=== PATIENT | female | born 1960 | race Caucasian/White ===

== ENCOUNTER 2016-06-19 05:40 | Emergency (ER) | payer MEDICARE, MEDICAID ==
[2016-06-19 05:40] VITALS: BP 136/90
[~2016-06-19 05:40] MED LIST: AMLO5TAB2 PO; ASPI81TA44 PO; CLON0.1T12 PO; GUAI-107 PO; LEVALBUTER0.63 MG/3 NEB; LISI-334 PO; LORA0.5T96 PO; MINE454C6 TP
--- NOTE | 2016-06-19 06:05 | PHYS DOC ---
Past History Past Medical History: Asthma, COPD, Hypertension, Lung Disease, Other Additional Past Medical Histor: pulmonary hypertension, cor pulmonale, noncompliance Past Surgical History: Cancer Surgery Smoking: Cigarettes Alcohol Use: None Drug Use: None Adult General Chief Complaint Chief Complaint: SHORTNESS OF BREATH HPI HPI 0552: Patient is a 56-year-old female with history significant for COPD and hypertension with ICU admissions in the past secondary to respiratory failure presents here today secondary to requiring oxygen. Patient reports that her option company, a previous, has delivered auction tanks to to the homes that she usually lives at however today she was staying with her sister and they did not has sufficient amounts of oxygen therefore her and they did not have a concentrator there. Patient reports shortly before coming in the ER she ran out of oxygen or auction tank and started feeling short of breath. Patient called EMS that she can get oxygen while her sister is trying to go to her other home in order to garbage pick up worker her concentrator and another canister of option. Patient currently reports that she is at her baseline respiratory status although when discussing with her from a skilled 0-10 where she is she reports she is about a 7 out of 10. Patient currently reports that the reason her breathing is somewhat difficult is because she feels that she was off her oxygen for a prolonged time and she just catching up and she is improving while she is on a nasal cannula. Patient reports that the reason she thinks her lungs sound wheezy is secondary to allergies and not secondary to her COPD exacerbation. Patient reports that she utilizes open next at home and that she is not allowed to use albuterol. Patient is currently refusing medication in the ER because she reports that she is close to her baseline. Patient reports that the only reason that she thinks she is feeling short of breath and now presents for allergies and does not want us to order any Xopenex for her at this time. Patient's physical exam the ER is significant for diminished breath sounds throughout. Patient is tachypneic. Patient has coarse rales in her right lower lobe. Patient is agreeing to allow us to get a chest x-ray on her to evaluate her lungs. Patient was initially reluctant but she had a recent chest x-ray however after discussing with her the breath sounds that she has that are abnormal she is agreed for a chest x-ray. Assessment and plan: This is a 48-year-old female with a history of severe COPD and hypertension who presents here today secondary to shortness of breath which by her report is secondary to running out of oxygen at her sister's house. Patient reports that this is not a COPD flareup for her and that she reports only reason that she thinks she is short of breath is because she ran out of oxygen. Patient is currently requesting that we allow her to stay here for a little bit to utilize her oxygen while her sister goes to her house to try to garbage pick up worker a canister of oxygen or her oxygen concentrator. Patient is currently declining our offer to assist with callingchente, in order to assist her with obtaining a canister of oxygen refilling her oxygen canisters. She has requested that we wait until she hears back from her sister who is currently going to her home. Patient is currently clinically and hemodynamically stable. We will get a x-ray of her chest. And we will reevaluate her once her sister Heinzer. Review of Systems Review of Systems Constitutional: Denies fever or chills [] Eyes: Denies change in visual acuity, redness, or eye pain [] All other review systems are negative except as documented in the history of present illness portion. Allergies Allergies Allergies Coded Allergies Type Severity Reaction Last Updated Verified Sulfa (Sulfonamide Antibiotics) Allergy Intermediate 01/23/15 Yes cefaclor Allergy Intermediate 04/23/15 Yes ciprofloxacin Allergy Intermediate 04/23/15 Yes doxycycline Allergy Intermediate 04/23/15 Yes erythromycin base Allergy Intermediate 04/23/15 Yes iodine Allergy Intermediate 04/23/15 No lisinopril Allergy Intermediate 07/04/15 Yes metronidazole Allergy Intermediate 04/23/15 Yes tetracycline Allergy Intermediate 01/23/15 Yes Physical Exam Physical Exam Constitutional: Well developed, well nourished, no acute distress, non-toxic appearance. [] HENT: Normocephalic, atraumatic, Eyes: PERRLA, EOMI, conjunctiva normal, no discharge. [] Neck: Normal range of motion, no tenderness, supple, no stridor. [] Cardiovascular:Heart rate regular rhythm Lungs & Thorax: Diffuse expiratory wheezing with rales to her right base. Abdomen: Bowel sounds normal, soft, no tenderness, no masses, no pulsatile masses. [] Skin: Warm, dry, no erythema, no rash. [] Back: No tenderness, no CVA tenderness. [] Extremities: No tenderness, no cyanosis, no clubbing, ROM intact, no edema. [] Neurologic: Alert and oriented X 3, normal motor function, normal sensory function, no focal deficits noted. [] Psychologic: Affect normal, judgement normal, mood normal. [] EKG EKG [] Radiology/Procedures Radiology/Procedures [] PATIENT: GARTH ROJAS ACCOUNT: [id number] : 1960 LOCATION: ER AGE: 56 SEX: F EXAM STATUS: REG ER ORD. PHYSICIAN: FRANCIA CIFUENTES MD REASON: Severe shortness of air today PROCEDURE: CHEST AP ONLY Exam performed: One view chest. Indication: Severe shortness of air today Date of Service: 06/19/2016 7:55 AM Comparison: Single view chest from 07/02/15. Single AP upright portable view chest findings: Cardiomediastinal silhouette is within limits of normal. No acute infiltrates, effusion or pneumothorax is detected. Emphysematous lungs with flattening of bilateral hemidiaphragms and chronic blunting of both costophrenic angles. The bony structures are normal. Impression: No acute cardiopulmonary process is detected. DICTATED AND SIGNED BY: GARY SOARES MD DATE: 06/19/16 0708 CC: FRANCIA CIFUENTES MD; NON,STAFF; THI TURK DO ~ Course & Med Decision Making Course & Med Decision Making Pertinent Labs and Imaging studies reviewed. (See chart for details) [] Case signed out to Dr. Valenzuela at 6 AM. Patient will be reevaluated and disposition will be per Dr. turk Pt family has returned with O2 supplies. She remains without complaint, VSS. I discussed CXR findings with her as well as need to always ensure she has access to home oxygen and supplies. Her questions answered, she expressed agreement/understanding with treatment plan. Dragon Disclaimer Dragon Disclaimer This chart was dictated in whole or in part using Voice Recognition software in a busy, high-work load, and often noisy Emergency Department environment. It may contain unintended and wholly unrecognized errors or omissions. Departure Departure: Impression: Primary Impression: Chronic respiratory failure Additional Impression: COPD (chronic obstructive pulmonary disease) Disposition: HOME, SELF-CARE Condition: STABLE Referrals: PCP,NO (PCP) Patient Instructions: Chronic Obstructive Pulmonary Disease Exacerbation, Easy- to-Read, Oxygen Use at Home Additional Instructions: Continue current medications/treatments. Be vigilant and always ensure you have oxygen and supplies readily available. Follow up with your doctor as needed. Return to ED with new or changing symptoms. Problem Qualifiers FRANCIA CIFUENTES MD June 19, 2016 06:05 THI TURK DO June 19, 2016 07:18
--- NOTE | 2016-06-19 07:12 | RAD ---
Exam performed: One view chest. Indication: Severe shortness of air today Date of Service: 06/19/2016 7:55 AM Comparison: Single view chest from 07/02/15. Single AP upright portable view chest findings: Cardiomediastinal silhouette is within limits of normal. No acute infiltrates, effusion or pneumothorax is detected. Emphysematous lungs with flattening of bilateral hemidiaphragms and chronic blunting of both costophrenic angles. The bony structures are normal. Impression: No acute cardiopulmonary process is detected.
== END 2016-06-19 08:07 | disposition home or self-care (01) ==
LOC: ER 05:40
DX: J44.1 Chronic obstructive pulmonary disease with (acute) exacerbation (principal); J96.10 Chronic respiratory failure, unspecified whether with hypoxia or hypercapnia; I10 Essential (primary) hypertension; F17.210 Nicotine dependence, cigarettes, uncomplicated; Z88.2 Allergy status to sulfonamides; Z88.1 Allergy status to other antibiotic agents; Z88.8 Allergy status to other drugs, medicaments and biological substances; Z91.041 Radiographic dye allergy status
CPT/HCPCS: 71010; 99283

== ENCOUNTER 2016-06-30 03:40 | Emergency (ER) | payer MEDICARE, MEDICAID ==
[~2016-06-30] VITALS: Ht 166.4 cm; Wt 49.9 kg
[2016-06-30] MEDS ORDERED: IPRATRPIUM/ALBUTEROL 0.5/2.5MG 3 ML NEBU. INH ONE (04:00)
[2016-06-30] MEDS ORDERED: IPRATRPIUM/ALBUTEROL 0.5/2.5MG 3 ML NEBU. ONE (04:02)
[2016-06-30 04:11] LABS: BASO # 0.1 x10^3/uL (0.0-0.2); BASO % 1 % (0-3); EOS # 0.3 x10^3/uL (0.0-0.7); EOS % 4 % (0-3); HEMATOCRIT 41.5 % (36.0-47.0); LYMPH % 23 % (24-48); MEAN CORPUSCULAR HEMOGLOBIN 30 pg (25-35); MEAN CORPUSCULAR HGB CONC 34 g/dL (31-37); MEAN CORPUSCULAR VOLUME 89 fL (79-100); MONO # 0.7 x10^3/uL (0.0-1.1); MONO % 8 % (0-9); NEUT # 5.4 x10^3uL (1.8-7.7); NEUT % 64 % (31-73); PLATELET COUNT 317 x10^3/uL (140-400); RED BLOOD COUNT 4.69 x10^6/uL (3.50-5.40); RED CELL DISTRIBUTION WIDTH 13.1 % (11.5-14.5); WHITE BLOOD COUNT 8.4 x10^3/uL (4.0-11.0)
--- NOTE | 2016-06-30 04:32 | PHYS DOC ---
Past History Past Medical History: Anxiety, Cancer, CHF, COPD, Hypertension, Other Additional Past Medical Histor: pulmonary hypertension, cor pulmonale, noncompliance Past Surgical History: Other Smoking: Cigarettes Alcohol Use: None Drug Use: None Adult General Chief Complaint Chief Complaint: SHORTNESS OF BREATH HPI HPI 56-year-old female with history of pulmonary hypertension presenting to the emergency department today with shortness of breath. She reports that her oxygen got kinked up and she started feeling short of breath. Paramedics were called who were able to straighten out her oxygen tubing. She was feeling much better. Paramedics report that her blood pressure was mildly elevated. They subsequently brought her in for evaluation. Currently she is short of breath but is much improved from previous. She is requiring her baseline oxygen which is 4 L/m by nasal cannula. She denies chest pain. Onset today. Location lungs. Duration intermittent. Alleviated by straightening out her tubing. Review of systems is negative for chest pain abdominal pain nausea vomiting or diaphoresis. All other review of systems is negative unless otherwise noted in history of present illness. Review of Systems Review of Systems SEE ABOVE. Current Medications Current Medications Current Medications Medications (Trade) Dose Ordered Sig/Flory Start Time Stop Time Status Last Admin Dose Admin Albuterol/ Ipratropium (Duoneb) 3 ml STK-MED ONCE 06/30/16 04:02 06/30/16 04:03 DC Allergies Allergies Allergies Coded Allergies Type Severity Reaction Last Updated Verified Sulfa (Sulfonamide Antibiotics) Allergy Intermediate 01/23/15 Yes cefaclor Allergy Intermediate 04/23/15 Yes ciprofloxacin Allergy Intermediate 04/23/15 Yes doxycycline Allergy Intermediate 04/23/15 Yes erythromycin base Allergy Intermediate 04/23/15 Yes iodine Allergy Intermediate 04/23/15 No lisinopril Allergy Intermediate 07/04/15 Yes metronidazole Allergy Intermediate 04/23/15 Yes tetracycline Allergy Intermediate 01/23/15 Yes Physical Exam Physical Exam Constitutional: Well developed, well nourished, no acute distress, non-toxic appearance. On baseline 4 L nasal cannula. HENT: Normocephalic, atraumatic, bilateral external ears normal, oropharynx moist, no oral exudates, nose normal. Eyes: PERRLA, EOMI, conjunctiva normal, no discharge. [] Neck: Normal range of motion, no tenderness, supple, no stridor. Cardiovascular:Heart rate regular rhythm, no murmur [] Lungs & Thorax: Patient has mild wheezing more on the right than the left. No crackles. Abdomen: Bowel sounds normal, soft, no tenderness, no masses, no pulsatile masses. Skin: Warm, dry, no erythema, no rash. Back: No tenderness, no CVA tenderness. [] Extremities: No tenderness, no cyanosis, no clubbing, ROM intact, no edema. Neurologic: Alert and oriented X 3, normal motor function, normal sensory function, no focal deficits noted. Psychologic: Affect normal, judgement normal, mood normal. Current Patient Data Vital Signs Vital Signs Date Time Temp Pulse Resp B/P (MAP) Pulse Ox O2 Delivery O2 Flow Rate FiO2 06/30/16 04:03 98.0 102 26 97 Nasal Cannula 4.0 Lab Results Laboratory Tests Test 06/30/16 03:55 White Blood Count 8.4 x10^3/uL (4.0-11.0) Red Blood Count 4.69 x10^6/uL (3.50-5.40) Hemoglobin 14.0 g/dL (12.0-15.5) Hematocrit 41.5 % (36.0-47.0) Mean Corpuscular Volume 89 fL (79-100) Mean Corpuscular Hemoglobin 30 pg (25-35) Mean Corpuscular Hemoglobin Concent 34 g/dL (31-37) Red Cell Distribution Width 13.1 % (11.5-14.5) Platelet Count 317 x10^3/uL (140-400) Neutrophils (%) (Auto) 64 % (31-73) Lymphocytes (%) (Auto) 23 % (24-48) L Monocytes (%) (Auto) 8 % (0-9) Eosinophils (%) (Auto) 4 % (0-3) H Basophils (%) (Auto) 1 % (0-3) Neutrophils # (Auto) 5.4 x10^3uL (1.8-7.7) Lymphocytes # (Auto) 2.0 x10^3/uL (1.0-4.8) Monocytes # (Auto) 0.7 x10^3/uL (0.0-1.1) Eosinophils # (Auto) 0.3 x10^3/uL (0.0-0.7) Basophils # (Auto) 0.1 x10^3/uL (0.0-0.2) EKG EKG EKG shows no ST segment changes. Sinus rhythm. Regular rate. [] Radiology/Procedures Radiology/Procedures [] Chest x-ray compared to previous on the 12th of this month.Chest x-ray reviewed by myself shows no obvious infiltrate or pneumothorax present. No obvious acute cardiopulmonary process present. Course & Med Decision Making Course & Med Decision Making Pertinent Labs and Imaging studies reviewed. (See chart for details) [] 58-year-old female presenting to the emergency department with shortness of breath which improved after unkinking her oxygen tubing at home. Patient was mildly hypertensive which improved without intervention. Afebrile. Saturating 97 % on her baseline oxygen requirement. Pertinent physical exam findings showed mild wheezing on the left. The patient was offered a DuoNeb therapy however she declined this. Blood work obtained. CBC unremarkable. X-ray and EKG unremarkable. On reexamination the patient was asymptomatic feeling much better. The patient was then discharged home in stable condition to follow up with their primary care physician over the next 2-3 days. They were to return if their symptoms worsened or if they were concerned for any reason. Face-to- face discharge instructions and return precautions were given. Patient's questions were answered to their satisfaction. Patient is comfortable plan. Dragon Disclaimer Dragon Disclaimer This chart was dictated in whole or in part using Voice Recognition software in a busy, high-work load, and often noisy Emergency Department environment. It may contain unintended and wholly unrecognized errors or omissions. Departure Departure: Impression: Primary Impression: Shortness of breath Disposition: 01 HOME, SELF-CARE Condition: STABLE Referrals: NON,STAFF (PCP) NIC GARCIA MD Patient Instructions: Shortness of Breath, [id number] Additional Instructions: Thank you for allowing us to participate in your care today. Followup with your primary care physician in 3 days if your symptoms do not improve. If you do not have a primary care provider you can ask for a list of our primary care providers. Return to the emergency department you have any new or concerning findings. This should be evaluated by the primary care physician and any necessary consulting services for continued management within a few days after discharge. Return to emergency room if you have any new or concerning symptoms including but not limited to fever, chills, nausea, vomiting, intractable pain, any new rashes, chest pain, shortness of air, uncontrolled bleeding, difficulty breathing, and/or vision loss. Scripts Levalbuterol Hcl (XOPENEX) 0.63 Mg/3 Ml Vial.neb 1 VIAL NEB PRN TID Y for SHORTNESS OF BREATH, #72 ML 2 Refills Prov: SPIKE GRANT MD 06/30/16 SPIKE GRANT MD June 30, 2016 04:32
[2016-06-30 04:35] LABS: ALBUMIN 3.6 g/dL (3.4-5.0); CALCIUM 9.4 mg/dL (8.5-10.1); CREATININE 0.4 mg/dL (0.6-1.0); DIRECT BILIRUBIN 0.1 mg/dL (0.0-0.2); GFR 163.9; POTASSIUM 4.1 mmol/L (3.5-5.1); TOTAL BILIRUBIN 0.3 mg/dL (0.2-1.0); TOTAL PROTEIN 7.9 g/dL (6.4-8.2)
[2016-06-30 04:46] VITALS: BP 142/95
[2016-06-30] MEDS ORDERED: XOPENEX0.63 MG/3 NEB (04:51)
--- NOTE | 2016-06-30 07:14 | RAD ---
Portable chest, 06/30/2016: History: Shortness of breath, chest pain Comparison is made to a study from 06/19/2016. The heart size is normal. There is calcific plaquing of the aorta. Emphysematous changes are present in the lungs with hyperexpansion. Unchanged prominent basilar pulmonary markings are compatible with scarring. No new pulmonary abnormality is seen. Unchanged blunting of the right lateral costophrenic angles compatible with scarring. No pleural fluid is delineated. IMPRESSION: 1. Emphysema with moderate parenchymal scarring. 2. No acute abnormality is detected.
--- NOTE | 2016-06-30 07:38 | EKG ---
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
== END 2016-06-30 05:00 | disposition home or self-care (01) ==
LOC: ER 03:40
DX: R06.02 Shortness of breath (principal); R06.2 Wheezing; I11.0 Hypertensive heart disease with heart failure; I50.9 Heart failure, unspecified; F41.9 Anxiety disorder, unspecified; J44.9 Chronic obstructive pulmonary disease, unspecified; F17.210 Nicotine dependence, cigarettes, uncomplicated; I27.2 Other secondary pulmonary hypertension; Z88.1 Allergy status to other antibiotic agents; Z88.2 Allergy status to sulfonamides; Z88.8 Allergy status to other drugs, medicaments and biological substances
CPT/HCPCS: 36415; 71010; 80048; 80076; 83690; 83880; 84484; 85027; 93005; 94640; 99285; J7620

== ENCOUNTER 2016-11-11 17:47 | Emergency (ER) | payer MEDICARE, MEDICAID ==
[~2016-11-11] VITALS: Ht 157.5 cm; Wt 53.5 kg
[~2016-11-11 17:47] MED LIST changes: -GUAI-107 PO; +GUAI-108 PO; +XOPENEX0.63 MG/3 NEB
--- NOTE | 2016-11-11 18:15 | PHYS DOC ---
Past History Past Medical History: Anxiety, Cancer, CHF, COPD, Hypertension, Other Additional Past Medical Histor: pulmonary hypertension, cor pulmonale, noncompliance Past Surgical History: Other Smoking: Cigarettes Alcohol Use: None Drug Use: None Adult General Chief Complaint Chief Complaint: FACE PROBLEM HPI HPI Patient is a 56 year old female who presents with facial swelling and allergy type symptoms. She states her symptoms started about a week ago and she's noticed her cheeks getting more swollen. She states it could be her partial plate in her mouth it's causing some of the discomfort or could be sinus infection. She states she's been getting green discharge out of her nose and she 's been coughing up the same. She states she's been using that same amount of oxygen. She denies any fevers chills worsening shortness of breath or chest discomfort. Review of Systems Review of Systems Constitutional: Denies fever or chills [] Eyes: Denies change in visual acuity, redness, or eye pain [] HENT: Denies nasal congestion or sore throat [] Respiratory: Denies cough or shortness of breath [] Cardiovascular: No additional information not addressed in HPI [] GI: Denies abdominal pain, nausea, vomiting, bloody stools or diarrhea [] : Denies dysuria or hematuria [] Musculoskeletal: Denies back pain or joint pain [] Integument: Denies rash or skin lesions [] Neurologic: Denies headache, focal weakness or sensory changes [] Endocrine: Denies polyuria or polydipsia [] Allergies Allergies Allergies Coded Allergies Type Severity Reaction Last Updated Verified Sulfa (Sulfonamide Antibiotics) Allergy Intermediate 01/23/15 Yes cefaclor Allergy Intermediate 04/23/15 Yes ciprofloxacin Allergy Intermediate 04/23/15 Yes doxycycline Allergy Intermediate 04/23/15 Yes erythromycin base Allergy Intermediate 04/23/15 Yes iodine Allergy Intermediate 04/23/15 No lisinopril Allergy Intermediate 07/04/15 Yes metronidazole Allergy Intermediate 04/23/15 Yes tetracycline Allergy Intermediate 01/23/15 Yes Physical Exam Physical Exam Constitutional: Well developed, well nourished, no acute distress, non-toxic appearance. [] HENT: Normocephalic, atraumatic, bilateral external ears normal, oropharynx moist, no oral exudates, nose normal. Partial plate in the upper maxillary area , tender palpation over bilateral maxillary sinuses with swelling over the left maxillary sinus, no Angel angina, posterior first clear, no trismus noted Eyes: PERRLA, EOMI, conjunctiva normal, no discharge. [] Neck: Normal range of motion, no tenderness, supple, no stridor. [] Cardiovascular:Heart rate regular rhythm, no murmur [] Lungs & Thorax: Bilateral breath sounds clear to auscultation [] Abdomen: Bowel sounds normal, soft, no tenderness, no masses, no pulsatile masses. [] Skin: Warm, dry, no erythema, no rash. [] Back: No tenderness, no CVA tenderness. [] Extremities: No tenderness, no cyanosis, no clubbing, ROM intact, no edema. [] Neurologic: Alert and oriented X 3, normal motor function, normal sensory function, no focal deficits noted. [] Psychologic: Affect normal, judgement normal, mood normal. [] EKG EKG [] Radiology/Procedures Radiology/Procedures [] Impressions: Facial swelling Course & Med Decision Making Course & Med Decision Making Pertinent Labs and Imaging studies reviewed. (See chart for details) I believe her symptoms are secondary to her gums or her sinus infection. She will need to be on antibiotics for the next 7 days. She preferred Pen-Vee K and I recommended Augmentin. I did speak with pharmacy who states Augmentin is a better agent for this. Patient is being discharged after her first dose was given in the ER. Return precautions given. Dragon Disclaimer Dragon Disclaimer This chart was dictated in whole or in part using Voice Recognition software in a busy, high-work load, and often noisy Emergency Department environment. It may contain unintended and wholly unrecognized errors or omissions. Departure Departure: Impression: Primary Impression: Dental abscess Disposition: 01 HOME, SELF-CARE Condition: STABLE Referrals: [facility] (PCP) Patient Instructions: Dental Abscess Additional Instructions: Your symptoms are likely due to an infection of your gums or your sinuses. You' ll need take antibiotic for the next 7 days. If your symptoms get worse, you have troubles eating or swallowing and return back to emergency department immediately. You should follow up with your primary care physician within the next week. Scripts Amoxicillin/Potassium Clav (AUGMENTIN 875-125 TABLET) 1 Each Tablet 1 TAB PO BID, #20 TAB Prov: DALIA MENENDEZ MD 11/11/16 DALIA MENENDEZ MD Nov 11, 2016 18:15
[2016-11-11 19:14] LABS: BASO # 0.1 x10^3/uL (0.0-0.2); BASO % 1 % (0-3); EOS # 0.3 x10^3/uL (0.0-0.7); EOS % 2 % (0-3); HEMATOCRIT 39.8 % (36.0-47.0); HEMOGLOBIN 13.8 g/dL (12.0-15.5); LYMPH # 1.9 x10^3/uL (1.0-4.8); LYMPH % 13 % (24-48); MEAN CORPUSCULAR HEMOGLOBIN 31 pg (25-35); MEAN CORPUSCULAR HGB CONC 35 g/dL (31-37); MEAN CORPUSCULAR VOLUME 89 fL (79-100); MONO # 0.8 x10^3/uL (0.0-1.1); MONO % 5 % (0-9); NEUT # 10.9 x10^3uL (1.8-7.7); NEUT % 79 % (31-73); PLATELET COUNT 278 x10^3/uL (140-400); RED BLOOD COUNT 4.49 x10^6/uL (3.50-5.40); WHITE BLOOD COUNT 13.9 x10^3/uL (4.0-11.0)
--- NOTE | 2016-11-11 19:30 | EKG ---
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
[2016-11-11 19:37] LABS: ALBUMIN 3.8 g/dL (3.4-5.0); CALCIUM 8.9 mg/dL (8.5-10.1); CREATININE 0.4 mg/dL (0.6-1.0); DIRECT BILIRUBIN 0.1 mg/dL (0.0-0.2); GFR 163.9; MAGNESIUM 1.9 mg/dL (1.8-2.4); POTASSIUM 4.4 mmol/L (3.5-5.1); TOTAL BILIRUBIN 0.2 mg/dL (0.2-1.0); TOTAL PROTEIN 7.6 g/dL (6.4-8.2)
[2016-11-11 19:44] LABS: CLARITY,URINE CLEAR; COLOR,URINE YELLOW; GLUCOSE,URINE NEG (NEG)
[2016-11-11 19:45] LABS: BACTERIA,URINE 0 /HPF (0-FEW); BILIRUBIN,URINE NEG (NEG); NITRITE,URINE NEG (NEG); RBC,URINE OCC /HPF (0-2); SQUAMOUS EPITHELIAL CELL,UR MANY /LPF; UROBILINOGEN,URINE 0.2 mg/dL (0.2 mg/dL)
[2016-11-11] MEDS ORDERED: AMOX1TAB61 PO (20:25)
[2016-11-11 20:35] VITALS: BP 140/90
[2016-11-11] MEDS ORDERED: AMOXICILLIN/K CLAV 875/125MG TABLET. PO ONE (20:45)
--- NOTE | 2016-11-12 07:40 | RAD ---
Chest x-ray Indication: Edema, short of breath Technique: Portable AP upright chest x-ray Comparison: Previous study from 06/30/2016 Findings: Heart is normal in size. Lungs are hyperinflated with flattening of diaphragms. No pneumothorax or pleural effusion. Bibasilar reticular opacities noted. No focal consolidation. Visualized bony thorax within normal limits. Impression: Findings of COPD with bibasilar parenchymal scarring. No acute cardiopulmonary process.
== END 2016-11-11 20:43 | disposition home or self-care (01) ==
LOC: ER 17:47
DX: K04.7 Periapical abscess without sinus (principal); I11.0 Hypertensive heart disease with heart failure; I50.9 Heart failure, unspecified; J44.9 Chronic obstructive pulmonary disease, unspecified; F17.210 Nicotine dependence, cigarettes, uncomplicated; Z88.2 Allergy status to sulfonamides; Z88.8 Allergy status to other drugs, medicaments and biological substances; Z88.1 Allergy status to other antibiotic agents; Z91.041 Radiographic dye allergy status
CPT/HCPCS: 36415; 71010; 80048; 80076; 81001; 82553; 83735; 83880; 84443; 85025; 87086; 93005; 99285-25

== ENCOUNTER 2017-02-28 17:27 | Inpatient (IN) | payer MEDICARE, MEDICAID ==
[~2017-02-28] VITALS: Ht 157.5 cm; Wt 50.8 kg
[~2017-02-28 17:27] MED LIST changes: +AMOX1TAB61 PO
[2017-02-28] MEDS ORDERED: NOREPINEPHRINE BITARTRATE 4 MG/4 ML VIAL. IV ONE (17:43)
[2017-02-28] MEDS ORDERED: methylPREDNISolone SOD SUCC PF 125 MG/2 ML VIAL. IV ONE (17:45)
[2017-02-28] MEDS ORDERED: IPRATRPIUM/ALBUTEROL 0.5/2.5MG 3 ML NEBU. NEB ONE ×3 (17:45→19:00)
[2017-02-28] MEDS ORDERED: IV NORMAL SALINE 250ML 0 ML ONE (17:50)
[2017-02-28 18:13] LABS: BASO % 0 % (0-3); EOS % 0 % (0-3); HEMATOCRIT 42.3 % (36.0-47.0); HEMOGLOBIN 14.1 g/dL (12.0-15.5); LYMPH # 0.9 x10^3/uL (1.0-4.8); LYMPH % 13 % (24-48); MEAN CORPUSCULAR HEMOGLOBIN 30 pg (25-35); MEAN CORPUSCULAR HGB CONC 33 g/dL (31-37); MEAN CORPUSCULAR VOLUME 89 fL (79-100); MONO # 0.7 x10^3/uL (0.0-1.1); MONO % 9 % (0-9); NEUT # 5.8 x10^3uL (1.8-7.7); NEUT % 78 % (31-73); PLATELET COUNT 182 x10^3/uL (140-400); RED BLOOD COUNT 4.76 x10^6/uL (3.50-5.40); RED CELL DISTRIBUTION WIDTH 13.4 % (11.5-14.5); WHITE BLOOD COUNT 7.4 x10^3/uL (4.0-11.0)
[2017-02-28 18:34] LABS: ALBUMIN 3.4 g/dL (3.4-5.0); ALBUMIN/GLOBULIN RATIO 0.9 (1.0-1.7); CALCIUM 8.6 mg/dL (8.5-10.1); CREATININE 0.5 mg/dL (0.6-1.0); GFR 126.7; POTASSIUM 3.9 mmol/L (3.5-5.1); TOTAL BILIRUBIN 0.2 mg/dL (0.2-1.0); TOTAL PROTEIN 7.3 g/dL (6.4-8.2)
--- NOTE | 2017-02-28 18:34 | PHYS DOC ---
General Chief Complaint: SHORTNESS OF BREATH Stated Complaint: SOB Time Seen by MD: 17:32 Source: patient, EMS, old records Exam Limitations: clinical condition Problems: (THI TURK DO) Time Seen by MD: 18:44 Problems: (ADRIANA ROSA MD) History of Present Illness Initial Comments Patient is a 56-year-old female brought to the ED by EMS with respiratory distress. Patient has a history of COPD and CHF, she has chronic respiratory failure and is supposed to use 3 L O2 via nasal cannula at all times. Family reports that she uses her O2 when necessary and has been refusing her nebulizer treatments recently. Patient recorded a home O2 sat of 66% and EMS was called, on arrival they found the patient to be satting in the 70s initially with improvement to the low 90s on 15 L nonrebreather. EMS reports that after a few moments the patient began to desat once again and on arrival to this facility was once again in the 80s. On arrival heart rate 103 bpm, 97/55, 93% on 15 L nonrebreather. On ED arrival the patient was able to talk with short sentences, she was able to transfer from the cot to the bed primarily by herself. She was fighting with most interventions until I asked her what her wishes were should she stop breathing whether she would want a tube placed down her throat, patient said " do whatever you have to do." Despite this the patient has intermittently removed her mask initially opting for nasal cannula in her mouth, saturation again dropped to the low 80s and I was able to convince the patient that she would either need CPAP mask trial or intubation. She did agree to CPAP and on 40 % O2 her oxygen saturation did increase to 98% and I instructed RT to titrate her to between 92-96% until we could obtain an ABG. Patient did have lower extremity edema and her lungs sound wet however with initial blood pressure is low no Lasix given initially. Patient did tell me that she's had a productive brown cough with worsening breathing for the past 4-5 days, she's had concomitant lower extremity swelling and her family reports that she smokes 2 cartons of cigarettes monthly. 1825: Current vitals 89, 107/66, 19, 91% on 35% CPAP. She has remained afebrile since arrival and is now much less anxious and more relaxed not working as hard or tripoding any longer. She does chest pain, headache, nausea vomiting, or focal neurologic deficits. Scant history on arrival primarily obtained from the chart from old records. Timing/Duration: unsure Severity: severe Modifying Factors: improves with other Associated Symptoms: shortness of breath (THI TURK DO) Allergies: Coded Allergies: Sulfa (Sulfonamide Antibiotics) (Verified Allergy, Intermediate, 01/23/15) cefaclor (Verified Allergy, Intermediate, 04/23/15) ciprofloxacin (Verified Allergy, Intermediate, 04/23/15) doxycycline (Verified Allergy, Intermediate, 04/23/15) erythromycin base (Verified Allergy, Intermediate, 04/23/15) iodine (Unverified Allergy, Intermediate, 04/23/15) lisinopril (Verified Allergy, Intermediate, 07/04/15) metronidazole (Verified Allergy, Intermediate, 04/23/15) tetracycline (Verified Allergy, Intermediate, 01/23/15) Past Medical History Medical History: other (COPD, pulmonary hypertension, chronic respiratory failure supposed to use 3 L of O2 via nasal cannula at all times, anxiety, cor pulmonale, lung cancer, tobaccoism, noncompliance and refusal of treatment) Surgical History: no surgical history, other (colectomy, partial lobectomy) (THI TURK DO) Social History Smoker: greater than 1 pack/day Alcohol: none Drugs: none (THI TURK DO) Review of Systems Constitutional: denies chills, denies diaphoresis, denies fever, malaise Respiratory: see HPI Cardiovascular: denies chest pain, denies palpitations, denies syncope Gastrointestinal: denies diarrhea, denies vomiting Musculoskeletal: denies back pain, joint swelling (left ankle), denies neck pain Hematologic/Lymphatic: denies blood clots, denies easy bleeding, denies easy bruising (THI TURK DO) Physical Exam General Appearance: severe distress (respiratory, appears older than given age) , thin Ear, Nose, Throat: hearing grossly normal, normal ENT inspection, normal pharynx Neck: non-tender, supple Respiratory: chest non-tender, respiratory distress, other (decreased breath sounds at the bases bilaterally with Rales no real wheezes, fair air movement with accessory muscle use and tripoding) Cardiovascular: normal peripheral pulses, tachycardia Extremities: non-tender, no calf tenderness, other (nail clubbing noted, 2+ pitting lower extremity edema left ankle greater than right) Neurologic/Psychiatric: transmitter chief II-XII nml as tested, no motor/sensory deficits, alert, oriented x 3 Skin: warm/dry, pallor (poor turgor no mottling) (ROSALEETHI Sosa SUÁREZ) Orders, Labs, Meds EKG: Normal sinus rhythm 99 bpm, nonspecific T contour abnormalities with some artifact noted in V6 no ST elevation interpreted by me. Chest AP: Small bilateral effusions present with some cephalization no tessa pulmonary edema cardiac silhouette and mediastinal structures appear within normal limits interpreted by me. 183: Labs, ABG, cultures all obtained and sent to lab and are pending. Patient' s vital signs remained stable on previously stated interventions, patient signed out to Dr. Lindsey at 1800 shift change. Please see his documentation for further results and patient disposition. (THI TURK DO) Orders, Labs, Meds She was turned over to me pending response to treatment to include DuoNeb's fluids and Cipro. Patient actually became more hypertensive which is needed given her hypotension is reported initial presentation. Patient is satting 90-94 % on present nonrebreather mask with a bleed rate in the 40% FiO2. Patient's PCO2 was 80 again patient did not want us to intubate her and she is willing to stay on the BiPAP machine at this time. I will continue to primarily treat her as a primary COPD patient. Although her pro BNP was 461 she had some basic mild cephalization on chest x-ray I believe that her issues accommodation CHF and COPD. We'll give her another 2 DuoNeb treatments, continue with a small fluid bolus to maintain her pressures give her some Lasix as well to help remove those fluids from her lungs. Patiently to be admitted to the ICU for further workup. In the interim I will treat her with antibiotics likely to choose a fourth generation penicillin given her prior lung disease, she does not want to be intubated she'll have to watch very closely with serial ABGs and responsive therapy. [employer] Consultant note: Medicine service paged at 703 PM [employer] Consultant called at of the service Consult called back at his call back at 7:15 PM Discussed the case I presented and they agreed with admission. Time of acceptance 7:15 p.m. "I have assessed this patient clinically and believe that their condition requires an admission to the hospital. After consulting the admitting physician about this case, they have asked that I admit this patient to their service as an inpatient based on the clinical presentation and my impression." Critical Care: The high probability of sudden, clinically significant deterioration in the patient's condition required the highest level of my preparedness to intervene urgently. The services I provided to this patient were to treat and/or prevent clinically significant deterioration. Services included the following: chart data review, reviewing nursing notes and/or old charts, documentation time, medical cost consultant collaboration regarding findings and treatment options, medication orders and management, direct patient care, vital sign assessments and ordering, interpreting and reviewing diagnostic studies/ lab tests. Aggregate critical care time includes only time during which I was engaged in work directly related to the patient's care, as described above, whether at the bedside or elsewhere in the Emergency Department. It did not include time spent performing other reported procedures or the services of nurses or physician assistants. Critical Care Time: 45 Concerned that this patient still is not understand the gravity of her sickness. She is declined the medication Lasix as she has not been exposed to before this may help once of fluids in her lungs. She is willing to get [facility] treatments & medical. I offered her antibiotics as well because she is allergic to drugs, sulfa, cephalosporins fluoroquinolones doxycycline, erythromycin, metronidazole and tetracycline we are limited in our scope of coverage I believe a fourth generation said penicillin would be reasonable. I have spoken at length with Dr. Kady BENITEZ about her condition and her non-CODE STATUS patient is willing to be admitted to the hospital although reluctantly she does not really want to be admitted but she understands the gravity of the situation. She is satting 92-94% on the BiPAP machine her blood pressures improved to 108/69. Her heart rate instructed 100. Because of her ABG PCO2 is 80 I want to ensure that she is oxygen well as her mentation reflects her understanding of the situation. And that this is not her being confused because of hypoxia. We are trying to help family informed her of her choices. Old is to provide as much supportive care as possible to help her mentate with an oxygen saturation above 92. Overall impression and disposition is COPD, CHF, respiratory insufficiency, pleural effusions bilaterally she will be admitted to the hospital the ICU under very close management and care with repeat neuro exam is repeat lactic acid troponin fluid administration antibiotics and respiratory support. Initial lactic acid is 1.1 patient is white blood cell count of 7.4 H&H is 14 and 43 patient's troponin is negative proBNP is 461. Laboratory Tests Test 02/28/17 17:36 02/28/17 18:00 02/28/17 18:17 White Blood Count 7.4 x10^3/uL (4.0-11.0) Red Blood Count 4.76 x10^6/uL (3.50-5.40) Hemoglobin 14.1 g/dL (12.0-15.5) Hematocrit 42.3 % (36.0-47.0) Mean Corpuscular Volume 89 fL (79-100) Mean Corpuscular Hemoglobin 30 pg (25-35) Mean Corpuscular Hemoglobin Concent 33 g/dL (31-37) Red Cell Distribution Width 13.4 % (11.5-14.5) Platelet Count 182 x10^3/uL (140-400) Neutrophils (%) (Auto) 78 % (31-73) H Lymphocytes (%) (Auto) 13 % (24-48) L Monocytes (%) (Auto) 9 % (0-9) Eosinophils (%) (Auto) 0 % (0-3) Basophils (%) (Auto) 0 % (0-3) Neutrophils # (Auto) 5.8 x10^3uL (1.8-7.7) Lymphocytes # (Auto) 0.9 x10^3/uL (1.0-4.8) L Monocytes # (Auto) 0.7 x10^3/uL (0.0-1.1) Eosinophils # (Auto) 0.0 x10^3/uL (0.0-0.7) Basophils # (Auto) 0.0 x10^3/uL (0.0-0.2) Sodium Level 135 mmol/L (136-145) L Potassium Level 3.9 mmol/L (3.5-5.1) Chloride Level 92 mmol/L (98-107) L Carbon Dioxide Level 40 mmol/L (21-32) H Anion Gap 3 (6-14) L Blood Urea Nitrogen 14 mg/dL (7-20) Creatinine 0.5 mg/dL (0.6-1.0) L Estimated GFR (Cockcroft-Gault) 126.7 BUN/Creatinine Ratio 28 (6-20) H Glucose Level 158 mg/dL (70-99) H Lactic Acid Level 1.1 mmol/L (0.4-2.0) Calcium Level 8.6 mg/dL (8.5-10.1) Total Bilirubin 0.2 mg/dL (0.2-1.0) Aspartate Amino Transferase (AST) 20 U/L (15-37) Alanine Aminotransferase (ALT) 20 U/L (14-59) Alkaline Phosphatase 73 U/L (46-116) Creatine Kinase 52 U/L (26-192) Troponin I Quantitative < 0.017 ng/mL (0-0.055) CL-Nsn-Q-Type Natriuretic Peptide 461 pg/mL (0-124) H Total Protein 7.3 g/dL (6.4-8.2) Albumin 3.4 g/dL (3.4-5.0) Albumin/Globulin Ratio 0.9 (1.0-1.7) L Blood pH 7.32 (7.35-7.45) L Blood Gas PCO2 80 mmHg (35-45) *H Blood Gas PO2 61 mmHg (80-100) L Blood Gas HCO3 41 mmol/L (22-26) H Arterial Bld O2 Saturation (Calc) 88 % (92-99) L FiO2 35 % Influenza Type A (Rapid) Negative (NEGATIVE) Influenza Type B (Rapid) Negative (NEGATIVE) (ADRIANA ROSA MD) THI TURK DO Feb 28, 2017 18:34 ADRIANA ROSA MD Feb 28, 2017 19:03
--- NOTE | 2017-02-28 18:39 | EKG ---
[address] [address] Test Date: 2017-02-28 Test Time: 18:07:24 Pat Name: GARTH ROJAS Department: Room: Gender: F Bobbin Sorter: ANDRE : 1960 Requested By: THI TURK Order Number: [id number] Reading MD: Andrew Barrow MD Measurements Intervals [place] Rate: 102 P: 90 MS: 102 QRS: 77 QRSD: 90 T: 64 QT: 350 QTc: 461 Interpretive Statements SINUS TACHYCARDIA Electronically Signed On 03-08-2017 0:15:58 MANAGER LPN by Andrew Barrow MD
[2017-02-28 18:45] LABS: BGAS PH 7.32 (7.35-7.45)
[2017-02-28 18:49] LABS: INFLUENZA A PATIENT NEGATIVE (NEGATIVE); INFLUENZA B PATIENT NEGATIVE (NEGATIVE)
[2017-02-28] MEDS ORDERED: FUROSEMIDE 40 MG/4 ML VIAL IVP ONE (19:00)
[2017-02-28] MEDS ORDERED: ACETAMINOPHEN 325 MG TABLET PO PRN (19:15)
[2017-02-28] MEDS ORDERED: PIPERACILLIN/TAZOBACTAM 4.5 GM in IV NORMAL SALINE 50ML 50 ML IV ONE (19:15)
[2017-02-28] MEDS ORDERED: PIPERACILLIN/TAZOBACTAM 4.5 GM VIAL IV ONE (19:32)
[2017-02-28] MEDS ORDERED: IV NORMAL SALINE 50ML 50 ML ONE (19:32)
[2017-02-28 22:30] VITALS: BP 117/87
[2017-02-28] MEDS: IPRATRPIUM/ALBUTEROL 0.5/2.5MG 3 ML NEBU. NEB SCH (22:37)
[2017-02-28 22:48] LABS: BACTERIA,URINE FEW /HPF (0-FEW); BILIRUBIN,URINE NEG (NEG); CLARITY,URINE HAZY; COLOR,URINE YELLOW; GLUCOSE,URINE NEG (NEG); NITRITE,URINE NEG (NEG); RBC,URINE OCC /HPF (0-2); UROBILINOGEN,URINE 0.2 mg/dL (0.2 mg/dL)
[2017-02-28 22:49] LABS: SQUAMOUS EPITHELIAL CELL,UR MOD /LPF
[2017-02-28 23:30] VITALS: BP 112/70
[2017-03-01] VITALS (19 sets, daily range): BP systolic 102–138; BP diastolic 59–89
[2017-03-01 06:44] LABS: BASO % 0 % (0-3); EOS % 0 % (0-3); HEMATOCRIT 41.7 % (36.0-47.0); HEMOGLOBIN 14.1 g/dL (12.0-15.5); LYMPH # 0.6 x10^3/uL (1.0-4.8); LYMPH % 9 % (24-48); MEAN CORPUSCULAR HEMOGLOBIN 30 pg (25-35); MEAN CORPUSCULAR HGB CONC 34 g/dL (31-37); MEAN CORPUSCULAR VOLUME 89 fL (79-100); MONO # 0.3 x10^3/uL (0.0-1.1); MONO % 5 % (0-9); NEUT # 5.6 x10^3uL (1.8-7.7); NEUT % 86 % (31-73); PLATELET COUNT 182 x10^3/uL (140-400); RED BLOOD COUNT 4.69 x10^6/uL (3.50-5.40); RED CELL DISTRIBUTION WIDTH 13.6 % (11.5-14.5); WHITE BLOOD COUNT 6.5 x10^3/uL (4.0-11.0)
[2017-03-01] MEDS: IPRATRPIUM/ALBUTEROL 0.5/2.5MG 3 ML NEBU. NEB SCH ×4 (06:45→22:20)
[2017-03-01 06:51] LABS: ALBUMIN 3.4 g/dL (3.4-5.0); ALBUMIN/GLOBULIN RATIO 0.8 (1.0-1.7); CALCIUM 8.9 mg/dL (8.5-10.1); CREATININE 0.7 mg/dL (0.6-1.0); GFR 85.9; POTASSIUM 3.7 mmol/L (3.5-5.1); TOTAL BILIRUBIN 0.2 mg/dL (0.2-1.0); TOTAL PROTEIN 7.6 g/dL (6.4-8.2)
--- NOTE | 2017-03-01 08:22 | RAD ---
Portable chest, 02/28/2017: History: Shortness of breath Comparison is made to a study from 11/11/2016. The heart size is normal. The lungs are hyperexpanded compatible with emphysema. There are scattered parenchymal scars. Prominent basilar lung markings persists, right greater than left. These appear unchanged. Chronic blunting of the lateral costophrenic angles is probably due to scarring. IMPRESSION: 1. Emphysema with fibrosis. 2. Unchanged prominence of the basilar pulmonary markings is also probably due to scarring. A component of chronic or recurrent interstitial edema cannot be excluded.
[2017-03-01] MEDS ORDERED: FUROSEMIDE 20 MG/2 ML VIAL IVP ONE (08:30)
[2017-03-01] MEDS: guaiFENesin DM 600/30MG 1 TAB TAB.ER.12H PO SCH ×2 (09:19→19:46)
[2017-03-01 10:00] LABS: BGAS PH 7.45 (7.35-7.45)
[2017-03-01] MEDS: PIPERACILLIN/TAZOBACTAM 4.5 GM in IV NORMAL SALINE 50ML 50 ML IV SCH ×2 (11:23→17:50)
[2017-03-01] MEDS: methylPREDNISolone SOD SUCC PF 40 MG/ML VIAL. IV SCH ×3 (14:00→21:46)
--- NOTE | 2017-03-01 18:00 | CARD ---
MR#: [id number] Date of Study: 03/01/2017 Ordering Physician: HANNAH LENZ, Referring Physician: OSMAR MARS Tech: Minerva Taylor RDCS APPROVED REPORT EXAM: Two-dimensional and M-mode echocardiogram with Doppler and color Doppler. Other Information Quality : Good INDICATION Pulmonary Hypertention 2D DIMENSIONS RVDd2.5 (2.9-3.5cm)Left Atrium(2D)2.7 (1.6-4.0cm) IVSd1.1 (0.7-1.1cm)Aortic Root(2D)2.6 (2.0-3.7cm) LVDd4.1 (3.9-5.9cm)LVOT Diameter2.3 (1.8-2.4cm) PWd0.9 (0.7-1.1cm)LVDs2.9 (2.5-4.0cm) FS (%) 28.8 %SV41.3 ml LVEF(%)55.9 (>50%) Aortic Valve AoV Peak Adalid.112.8cm/Maria Luz Peak GR.5.1mmHg LVOT Peak Adalid.122.4cm/sAVA (VMAX)4.52cm2 Mitral Valve MV E Esblcnol84.8cm/sMV DECEL LGGV695oh MV A Cnejpvfc976.1cm/sE/A Ratio0.9 Tricuspid Valve TR P. Fsfjftbn782vq/sRAP VYPLSOLE1ctCd TR Peak Gr.[id number] LEFT VENTRICLE The left ventricle is normal size. There is normal left ventricular wall thickness. The left ventricu lar systolic function is normal and the ejection fraction is within normal range. The Ejection Fracti on is 55-60%. There is normal LV segmental wall motion. Transmitral Doppler flow pattern is Grade I-a bnormal relaxation pattern. RIGHT VENTRICLE The right ventricle is normal size. The right ventricular systolic function is normal. ATRIA The left atrium size is normal. The right atrium size is normal. The interatrial septum is intact wit h no evidence for an atrial septal defect or patent foramen ovale as noted on 2-D or Doppler imaging. AORTIC VALVE Not well visualized. Doppler and Color Flow revealed no significant aortic regurgitation. There is no significant aortic valvular stenosis. MITRAL VALVE The mitral valve is calcified but opens well. Mitral annular calcification is mild. There is no evide nce of mitral valve prolapse. There is no mitral valve stenosis. Doppler and Color-flow revealed trac e mitral regurgitation. TRICUSPID VALVE The tricuspid valve is normal in structure and function. Doppler and Color Flow revealed trace to mil d tricuspid regurgitation. There is mild-moderate pulmonary hypertension. The PA pressure was estimat ed at 41 mmHg. There is no tricuspid valve stenosis. PULMONIC VALVE Doppler and Color Flow revealed no pulmonic valvular regurgitation. There is no pulmonic valvular juanjose nosis. GREAT VESSELS The aortic root is normal in size. The ascending aorta is not well seen. The IVC is normal in size an d collapses >50% with inspiration. PERICARDIAL EFFUSION There is no evidence of significant pericardial effusion. Critical Notification Critical Value: No <Conclusion> The left ventricular systolic function is normal and the ejection fraction is within normal range. Th e Ejection Fraction is 55-60%. There is normal LV segmental wall motion. Doppler and Color Flow revealed trace to mild tricuspid regurgitation. There is mild-moderate pulmona ry hypertension. The PA pressure was estimated at 41 mmHg. Signed by : Andrew Barrow, Electronically Approved : 03/01/2017 18:00:02
--- NOTE | 2017-03-01 18:58 | HP ---
ADMIT DATE: 02/28/2017 HISTORY OF PRESENT ILLNESS: This is a 56-year-old female with longstanding COPD, who presented to the Emergency Room in respiratory distress. Daughter said she has been ill for several days, noticed that her feet were swelling. She is still smoking a couple of cartons a month. She is requiring oxygen at home, but takes it off when she goes outside to smoke. Then, comes back and is quite winded, but she became very weak 2 days ago, was not eating very well, noted shortness of breath with exertion, saturation was of 68% on the concentrator and then 92-93% on portable. She has been very resistant to care in the past. Family has had a time with her getting her to comply with regimen that would be in her best interest. In fact, even here, she is negotiating and refusing to have a lot of medications. PAST MEDICAL HISTORY: 1. Chronic hypercapnic hypoxemic respiratory failure. 2. Emphysema confirmed on CT. 3. Hypertension. 4. Debilitation. 5. Pulmonary hypertension. 6. Tobacco use disorder. 7. I suspect a borderline personality disorder. MEDICATIONS: The patient refuses to take most of her medication, so a current list is really not available. ALLERGIES: She claims multiple allergies, most of these are not true allergies, including STEROIDS, but she claims these are allergies. The patient did get Solu-Medrol last night without problems. REVIEW OF SYSTEMS: The patient is complaining of shortness of breath, brown sputum, denies fever, poor appetite, those are the main ones. OBJECTIVE: VITAL SIGNS: Blood pressure is 108/60, respirations 28, pulse 88, pulse ox is 91% on 5 liters, and also was 97% on 5 liters. The patient really will not keep the mask on. GENERAL: Her color is julia and purplish. Nails are pale. LUNGS: With diminished breath sounds throughout. CARDIOVASCULAR: Regular rhythm and rate, 2/6 systolic murmur. ABDOMEN: Soft, nontender. EXTREMITIES: With trace to 1+ edema. LABORATORY DATA: Initial ABG yesterday evening, pH of 7.32, pCO2 of 80, pO2 of 61, HCO3 of 41. Today after BiPAP, she was 7.45 with 58 pCO2, 74 of O2 and 40 of HCO3. Influenza A and B were negative. D-dimer was negative. Chemistry profile: She has an adequate albumin of 3.4, carbon dioxide of 40. CBC normal white count. Urine 11-20 white cells, but moderate squamous epithelial cells. Chest x-ray: Emphysema with fibrosis, unchanged basilar pulmonary markings. ASSESSMENT: 1. Acute on chronic hypercapnic hypoxemic respiratory failure. 2. Emphysema with fibrosis. 3. Continued tobacco use disorder. 4. Noncompliance with regimen. 5. Chronic oxygen. PLAN: Repeat echo, and had some discussions about whether she should be a DNR if she refuses to have any medications to make her better. The patient is refusing the steroids at the present time. She allowed the antibiotic and Mucinex and some Tylenol. We will monitor her closely. She is also refusing breathing treatments but did have one. HANNAH LENZ DO DR: HILARY/gigi JOB#: [id number] / [id number]
[2017-03-01] MEDS: LACTOBACILLUS RHAMNOSUS GG 1 CAPSULE. PO SCH (19:46)
[2017-03-02] VITALS (9 sets, daily range): BP systolic 102–144; BP diastolic 62–83
[2017-03-02] MEDS: PIPERACILLIN/TAZOBACTAM 4.5 GM in IV NORMAL SALINE 50ML 50 ML IV SCH ×5 (00:29→23:08)
[2017-03-02] MEDS: IPRATRPIUM/ALBUTEROL 0.5/2.5MG 3 ML NEBU. NEB SCH ×4 (05:33→19:34)
[2017-03-02] MEDS: methylPREDNISolone SOD SUCC PF 40 MG/ML VIAL. IV SCH ×3 (05:34→21:29)
[2017-03-02 06:17] LABS: BASO % 0 % (0-3); EOS % 0 % (0-3); HEMATOCRIT 41.2 % (36.0-47.0); HEMOGLOBIN 13.8 g/dL (12.0-15.5); LYMPH # 0.6 x10^3/uL (1.0-4.8); LYMPH % 8 % (24-48); MEAN CORPUSCULAR HEMOGLOBIN 30 pg (25-35); MEAN CORPUSCULAR HGB CONC 34 g/dL (31-37); MEAN CORPUSCULAR VOLUME 89 fL (79-100); MONO # 0.3 x10^3/uL (0.0-1.1); MONO % 4 % (0-9); NEUT % 88 % (31-73); PLATELET COUNT 202 x10^3/uL (140-400); RED BLOOD COUNT 4.62 x10^6/uL (3.50-5.40); RED CELL DISTRIBUTION WIDTH 13.1 % (11.5-14.5)
[2017-03-02 06:31] LABS: ALBUMIN 3.1 g/dL (3.4-5.0); ALBUMIN/GLOBULIN RATIO 0.8 (1.0-1.7); CALCIUM 8.5 mg/dL (8.5-10.1); CREATININE 0.6 mg/dL (0.6-1.0); GFR 102.7; MAGNESIUM 1.7 mg/dL (1.8-2.4); POTASSIUM 3.6 mmol/L (3.5-5.1); TOTAL BILIRUBIN 0.3 mg/dL (0.2-1.0)
[2017-03-02] MEDS: guaiFENesin DM 600/30MG 1 TAB TAB.ER.12H PO SCH ×3 (07:56→20:41)
[2017-03-02] MEDS: LACTOBACILLUS RHAMNOSUS GG 1 CAPSULE. PO SCH ×3 (07:56→20:40)
[2017-03-02] MEDS: amLODIPine BESYLATE 5 MG TABLET PO SCH (08:07)
[2017-03-02] MEDS ORDERED: OLANZapine 2.5 MG TABLET ONE (10:20)
--- NOTE | 2017-03-02 18:19 | PDOC ---
Exam Note: Art Note: Please also refer to the separate dictated note~for this date of service dictated separately.~Patient seen individually. Discussed the patient with Nursing staff reviewed the chart.~Reviewed interim history and current functioning. Reviewed vital signs,~Labs/ Radiology~and current medications noted below. Continue current treatment with the changes noted in the dictated addendum note Assessment: Vital Signs: Vital Signs Date Time Temp Pulse Resp B/P (MAP) Pulse Ox O2 Delivery O2 Flow Rate FiO2 03/02/17 15:38 95 Nasal Cannula 5.0 03/02/17 14:06 85 20 133/80 (97) 03/02/17 05:50 97.4 I&O Intake and Output 03/02/17 07:00 Intake Total 1640 ml Output Total 1050 ml Balance 590 ml Intake Oral 1490 ml IV Total 150 ml Output Urine Total 750 ml Urine/Stool Mix 300 ml # Voids 5 # Bowel Movements 4 Labs: Laboratory Tests Test 03/02/17 05:42 White Blood Count 8.0 x10^3/uL (4.0-11.0) Red Blood Count 4.62 x10^6/uL (3.50-5.40) Hemoglobin 13.8 g/dL (12.0-15.5) Hematocrit 41.2 % (36.0-47.0) Mean Corpuscular Volume 89 fL (79-100) Mean Corpuscular Hemoglobin 30 pg (25-35) Mean Corpuscular Hemoglobin Concent 34 g/dL (31-37) Red Cell Distribution Width 13.1 % (11.5-14.5) Platelet Count 202 x10^3/uL (140-400) Neutrophils (%) (Auto) 88 % (31-73) H Lymphocytes (%) (Auto) 8 % (24-48) L Monocytes (%) (Auto) 4 % (0-9) Eosinophils (%) (Auto) 0 % (0-3) Basophils (%) (Auto) 0 % (0-3) Neutrophils # (Auto) 7.0 x10^3uL (1.8-7.7) Lymphocytes # (Auto) 0.6 x10^3/uL (1.0-4.8) L Monocytes # (Auto) 0.3 x10^3/uL (0.0-1.1) Eosinophils # (Auto) 0.0 x10^3/uL (0.0-0.7) Basophils # (Auto) 0.0 x10^3/uL (0.0-0.2) Sodium Level 139 mmol/L (136-145) Potassium Level 3.6 mmol/L (3.5-5.1) Chloride Level 94 mmol/L (98-107) L Carbon Dioxide Level 40 mmol/L (21-32) H Anion Gap 5 (6-14) L Blood Urea Nitrogen 11 mg/dL (7-20) Creatinine 0.6 mg/dL (0.6-1.0) Estimated GFR (Cockcroft-Gault) 102.7 BUN/Creatinine Ratio 18 (6-20) Glucose Level 146 mg/dL (70-99) H Calcium Level 8.5 mg/dL (8.5-10.1) Magnesium Level 1.7 mg/dL (1.8-2.4) L Total Bilirubin 0.3 mg/dL (0.2-1.0) Aspartate Amino Transferase (AST) 15 U/L (15-37) Alanine Aminotransferase (ALT) 19 U/L (14-59) Alkaline Phosphatase 64 U/L (46-116) Total Protein 7.0 g/dL (6.4-8.2) Albumin 3.1 g/dL (3.4-5.0) L Albumin/Globulin Ratio 0.8 (1.0-1.7) L Current Medications: Meds: Current Medications Albuterol/ Ipratropium (Duoneb) 3 ml 1X ONCE NEB Last administered on at 17:45; Start 02/28/17 at 17:45; Stop 02/28/17 at 17:46; Status DC Methylprednisolone Sodium Succinate (SOLU-Medrol 125MG VIAL) 125 mg 1X ONCE IV Last administered on 02/28/17at 17:45; Start 02/28/17 at 17:45; Stop 02/28/17 at 17:46; Status DC Norepinephrine Bitartrate (Levophed) 4 mg STK-MED ONCE IV ; Start 02/28/17 at 17 :43; Stop 02/28/17 at 17:44; Status DC Sodium Chloride 0 ml @ As Directed STK-MED ONCE .ROUTE ; Start 02/28/17 at 17:50 ; Stop 02/28/17 at 17:51; Status DC Furosemide (Lasix) 40 mg 1X ONCE IVP ; Start 02/28/17 at 19:00; Stop 02/28/17 at 19:01; Status DC Albuterol/ Ipratropium (Duoneb) 3 ml 1X ONCE NEB Last administered on at 19:12; Start 02/28/17 at 19:00; Stop 02/28/17 at 19:01; Status DC Albuterol/ Ipratropium (Duoneb) 3 ml 1X ONCE NEB Last administered on at 19:35; Start 02/28/17 at 19:00; Stop 02/28/17 at 19:01; Status DC Acetaminophen (Tylenol) 650 mg PRN Q4HRS PRN PO FEVER Last administered on 02/28at 19:37; Start 02/28/17 at 19:15; Stop 03/01/17 at 19:15; Status DC Albuterol/ Ipratropium (Duoneb) 3 ml RTQID NEB Last administered on 03/01/17at 17:52; Start 02/28/17 at 20:00; Stop 03/01/17 at 19:59; Status DC Piperacillin Sod/ Tazobactam Sod 4.5 gm/Sodium Chloride 50 ml @ 100 mls/hr 1X ONCE IV Last administered on 02/28/17at 19:38; Start 02/28/17 at 19:15; Stop at 19:45; Status DC Sodium Chloride 50 ml @ As Directed STK-MED ONCE .ROUTE ; Start 02/28/17 at 19: 32; Stop 02/28/17 at 19:33; Status DC Piperacillin Sod/ Tazobactam Sod (Zosyn) 4.5 gm STK-MED ONCE IV ; Start at 19:32; Stop 02/28/17 at 19:33; Status DC Methylprednisolone Sodium Succinate (SOLU-Medrol 40MG VIAL) 60 mg Q8HRS IV Last administered on 03/02/17at 05:34; Start 03/01/17 at 14:00; Stop 03/02/17 at 08:28; Status DC Piperacillin Sod/ Tazobactam Sod 4.5 gm/Sodium Chloride 50 ml @ 100 mls/hr Q6HRS IV Last administered on 03/02/17at 18:14; Start 03/01/17 at 12:00 Guaifenesin (MUCINEX ER with DM) 1 tab BID PO Last administered on 03/02/17at 08 :06; Start 03/01/17 at 09:00 Furosemide (Lasix) 20 mg 1X ONCE IVP Last administered on 03/01/17at 09:19; Start 03/01/17 at 08:30; Stop 03/01/17 at 08:31; Status DC Lactobacillus Rhamnosus (Culturelle) 1 cap BID PO Last administered on at 08:06; Start 03/01/17 at 21:00 Albuterol/ Ipratropium (Duoneb) 3 ml RTQID NEB Last administered on 03/02/17at 15:37; Start 03/01/17 at 20:00 Amlodipine Besylate (Norvasc) 5 mg DAILY PO Last administered on 03/02/17at 08: 07; Start 03/02/17 at 09:00 Methylprednisolone Sodium Succinate (SOLU-Medrol 40MG VIAL) 30 mg Q8HRS IV Last administered on 03/02/17at 14:33; Start 03/02/17 at 14:00 Olanzapine (ZyPREXA) 2.5 mg STK-MED ONCE .ROUTE Last administered on 03/02/17at 10:25; Start 03/02/17 at 10:20; Stop 03/02/17 at 10:21; Status DC Olanzapine (ZyPREXA ZYDIS) 2.5 mg PRN Q2HR PRN PO PSYCHOSIS; Start 03/02/17 at 10:30 Active Scripts Active Xopenex (Levalbuterol Hcl) 0.63 Mg/3 Ml Vial.neb 1 Vial NEB PRN TID PRN Catapres (Clonidine Hcl) 0.1 Mg Tablet 0.1 Mg PO Q8HRS Amlodipine Besylate 5 Mg Tablet 5 Mg PO DAILY I have reviewed the current psychotropics carefully including drug interactions. Risk benefit ratio favors no change other than as noted in my dictated progress note. Diagnosis: Problems: (1) Personality disorder in adult (2) Major depressive disorder, recurrent episode (3) Impulse control disorder (4) Anxiety disorder CHUY NUNEZ MD Mar 02, 2017 18:19
--- NOTE | 2017-03-03 01:27 | CONS ---
DATE OF CONSULTATION: 03/01/2017 NOTE: This late entry, date of service 03/01/2017, covers elements not covered in my initial note of 03/01/2017. I met with the patient evening of 03/01/2017. IDENTIFYING DATA: The patient is a 56-year-old female seen in ICU bed 2, [facility], for a psychiatric consult requested by Dr. Thompson on account of the patient's mood lability, anxiety, refusing medications and treatments for her COPD within the context of her possible history of personality disorder, depression and anxiety. CHIEF COMPLAINT: "There is nothing wrong with my mind. I always want to know what treatments are being given and I can tell if I will take it or not." HISTORY OF PRESENT ILLNESS: The patient has a long history of COPD, presented to the ER in respiratory distress. She had been ill for several days. Feet were swelling, still smoking a couple of cartons a month, requiring oxygen at home, but when she takes it off, she goes outside to smoke, comes back quite winded. She became weak for the past 2 days, not eating very well. She has been quite resistive to interventions and cares and treatment recommended since she has been hospitalized. Daughter relates the patient has a history of personality disorder and mood swings, but past treatments are unclear. She is noted to be manipulative and quite paranoid. No clear history of bipolar disorder. PAST PSYCHIATRIC HISTORY: As above, though she has had some short term memory deficits. PAST MEDICAL HISTORY: Chronic hypercapnic hypoxemic respiratory failure, emphysema, hypertension, debilitation, pulmonary hypertension, tobacco use disorder, personality disorder. ALLERGIES: She claims multiple allergies. It is unclear what these are, but she states she is allergic to STEROIDS. Solu-Medrol was given overnight without any problems, however. SULFA, CEFACLOR, CIPRO, DOXYCYCLINE, ERYTHROMYCIN, IODINE, LISINOPRIL, METRONIDAZOLE, TETRACYCLINE. CURRENT PSYCHOTROPICS: We are adding Zyprexa 2.5 mg q. 2 hours p.r.n. psychosis, max 10 mg in 24 hours. FAMILY HISTORY: Noncontributory. She is a full code. SOCIAL HISTORY: The patient lives at home with her daughter and the daughter's family. 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 MENTAL STATUS EXAMINATION: The patient was seen individually evening of 03/01/2017. She minimized most of her problems including her COPD symptoms and breathlessness, was somewhat paranoid, suspicious of medications administered to her. Speech coherent, rapid at times. Abstraction fair. Computation, able to do 3 steps on serial 7, able to spell world forward, no error, backward 1 error. Attention span short. Language function intact. Mood is anxious, suspicious. No active suicidal or homicidal ideation. Attention span short. Language function intact. LABORATORY DATA: Reviewed. IMPRESSION: From a psychiatric standpoint, major depressive disorder versus adjustment disorder with depressed mood and anxiety, psychotic disorder, unspecified. Personality disorder, unspecified. Rest as above. PLAN: From a psychiatric standpoint, add Zyprexa as noted above p.r.n. for now. We will monitor the patient, and once she medically stabilizes, especially from COPD, we will reassess if she needs other psychotropics on a scheduled basis including consideration of mood stabilizers. Dr. Garcia/Dr. Thompson, thank you for the opportunity to participate in your patient's care. We will follow with you. CHUY NUNEZ MD DR: LANG/gigi JOB#: [id number] / [id number]
--- NOTE | 2017-03-03 04:25 | PN ---
DATE: 03/02/2017 CURRENT PROBLEMS: 1. Acute on chronic hypercapnic hypoxemic respiratory failure. 2. Emphysema with fibrosis. 3. Tobacco use disorder. 4. Noncompliance with regimen. 5. Chronic oxygen dependency. 6. I suspect borderline personality disorder. SUBJECTIVE: The patient does continue to refuse taking certain medications, she refused her BiPAP last night, she is doing better; however, she still is requiring oxygen, but has been doing okay without the BiPAP. OBJECTIVE: VITAL SIGNS: Blood pressure 133/80, respirations 20, pulse 85, pulse ox is 94% on 4 liters by nasal cannula. GENERAL: Color is still julia and purplish. She is breathing comfortably. LUNGS: Distant breath sounds, but no wheezing. CARDIOVASCULAR: Regular rhythm and rate. ABDOMEN: Soft, nontender. EXTREMITIES: Without edema. LABORATORY DATA: Reviewed, slightly low magnesium of 1.7. Urine culture mixed urogenital jason. PLAN: Continue on antibiotics, breathing treatments and steroids for one more day. Plan for discharge tomorrow. There is a concern that she is not capable of managing her own affairs that. That makes very poor choices with regards to her health and certainly as far is still smoking, not using her oxygen not taking her medications, refusing her medications and perhaps her daughter should be her DPOA, so that is something we are considering. HANNAH LENZ DO DR: HILARY/gigi JOB#: [id number] / [id number]
[2017-03-03] MEDS: methylPREDNISolone SOD SUCC PF 40 MG/ML VIAL. IV SCH (05:09)
[2017-03-03] MEDS: PIPERACILLIN/TAZOBACTAM 4.5 GM in IV NORMAL SALINE 50ML 50 ML IV SCH ×2 (05:09→11:07)
[2017-03-03] MEDS: IPRATRPIUM/ALBUTEROL 0.5/2.5MG 3 ML NEBU. NEB SCH ×3 (05:30→15:47)
[2017-03-03 06:00] VITALS: BP 158/84
[2017-03-03 06:17] LABS: BASO % 0 % (0-3); EOS % 0 % (0-3); HEMATOCRIT 39.5 % (36.0-47.0); HEMOGLOBIN 13.1 g/dL (12.0-15.5); LYMPH # 0.8 x10^3/uL (1.0-4.8); LYMPH % 11 % (24-48); MEAN CORPUSCULAR HEMOGLOBIN 30 pg (25-35); MEAN CORPUSCULAR HGB CONC 33 g/dL (31-37); MEAN CORPUSCULAR VOLUME 89 fL (79-100); MONO # 0.5 x10^3/uL (0.0-1.1); MONO % 7 % (0-9); NEUT # 6.1 x10^3uL (1.8-7.7); NEUT % 82 % (31-73); PLATELET COUNT 233 x10^3/uL (140-400); RED BLOOD COUNT 4.44 x10^6/uL (3.50-5.40); RED CELL DISTRIBUTION WIDTH 13.1 % (11.5-14.5); WHITE BLOOD COUNT 7.5 x10^3/uL (4.0-11.0)
[2017-03-03 06:29] LABS: ALBUMIN 2.9 g/dL (3.4-5.0); ALBUMIN/GLOBULIN RATIO 0.8 (1.0-1.7); CALCIUM 8.9 mg/dL (8.5-10.1); CREATININE 0.5 mg/dL (0.6-1.0); GFR 126.7; MAGNESIUM 1.8 mg/dL (1.8-2.4); POTASSIUM 3.9 mmol/L (3.5-5.1); TOTAL BILIRUBIN 0.2 mg/dL (0.2-1.0); TOTAL PROTEIN 6.7 g/dL (6.4-8.2)
[2017-03-03 07:31] VITALS: BP 139/79
[2017-03-03] MEDS: LACTOBACILLUS RHAMNOSUS GG 1 CAPSULE. PO SCH (08:35)
[2017-03-03] MEDS: guaiFENesin DM 600/30MG 1 TAB TAB.ER.12H PO SCH (08:35)
[2017-03-03] MEDS: amLODIPine BESYLATE 5 MG TABLET PO SCH (09:00)
[2017-03-03] MEDS ORDERED: AMLODIPINE 5 MG PO SCH (10:30)
[2017-03-03 11:10] VITALS: BP 159/92
--- NOTE | 2017-03-03 15:04 | RAD ---
Chest, 2 views, 03/03/2017: History: Follow-up interstitial edema Comparison is made to a study from 02/28/2017. The lungs are hyperexpanded. The heart size is normal. There is mild aortic calcific plaquing. The upper lobe pulmonary vessels are attenuated due to emphysema. Mild prominence of the basilar pulmonary markings is similar to that seen on 01/22/2015 and is likely due to scarring. No definite acute infiltrate is seen. Blunting of the costophrenic angles is compatible with scarring. IMPRESSION: 1. Emphysema with fibrosis. 2. No definite acute abnormality is detected.
[2017-03-03] MEDS ORDERED: PRED-220 PO (15:28)
[2017-03-03] MEDS ORDERED: GUAI-108 PO (15:28)
[2017-03-03] MEDS ORDERED: AMOX500C PO (15:28)
--- NOTE | 2017-03-03 18:23 | PDOC ---
Exam Note: Art Note: Please also refer to the separate dictated note~for this date of service dictated separately.~Patient seen individually. Discussed the patient with Nursing staff reviewed the chart.~Reviewed interim history and current functioning. Reviewed vital signs,~Labs/ Radiology~and current medications noted below. Continue current treatment with the changes noted in the dictated addendum note Assessment: Vital Signs: Vital Signs Date Time Temp Pulse Resp B/P (MAP) Pulse Ox O2 Delivery O2 Flow Rate FiO2 03/03/17 11:10 97.7 105 22 159/92 (114) 90 Nasal Cannula 3.0 I&O Intake and Output 03/03/17 07:00 Intake Total 1460 ml Output Total 277 ml Balance 1183 ml Intake Oral 1260 ml IV Total 200 ml Output Urine Total 277 ml # Bowel Movements 2 Labs: Laboratory Tests Test 03/03/17 05:43 White Blood Count 7.5 x10^3/uL (4.0-11.0) Red Blood Count 4.44 x10^6/uL (3.50-5.40) Hemoglobin 13.1 g/dL (12.0-15.5) Hematocrit 39.5 % (36.0-47.0) Mean Corpuscular Volume 89 fL (79-100) Mean Corpuscular Hemoglobin 30 pg (25-35) Mean Corpuscular Hemoglobin Concent 33 g/dL (31-37) Red Cell Distribution Width 13.1 % (11.5-14.5) Platelet Count 233 x10^3/uL (140-400) Neutrophils (%) (Auto) 82 % (31-73) H Lymphocytes (%) (Auto) 11 % (24-48) L Monocytes (%) (Auto) 7 % (0-9) Eosinophils (%) (Auto) 0 % (0-3) Basophils (%) (Auto) 0 % (0-3) Neutrophils # (Auto) 6.1 x10^3uL (1.8-7.7) Lymphocytes # (Auto) 0.8 x10^3/uL (1.0-4.8) L Monocytes # (Auto) 0.5 x10^3/uL (0.0-1.1) Eosinophils # (Auto) 0.0 x10^3/uL (0.0-0.7) Basophils # (Auto) 0.0 x10^3/uL (0.0-0.2) Sodium Level 141 mmol/L (136-145) Potassium Level 3.9 mmol/L (3.5-5.1) Chloride Level 98 mmol/L (98-107) Carbon Dioxide Level 39 mmol/L (21-32) H Anion Gap 4 (6-14) L Blood Urea Nitrogen 10 mg/dL (7-20) Creatinine 0.5 mg/dL (0.6-1.0) L Estimated GFR (Cockcroft-Gault) 126.7 BUN/Creatinine Ratio 20 (6-20) Glucose Level 114 mg/dL (70-99) H Calcium Level 8.9 mg/dL (8.5-10.1) Magnesium Level 1.8 mg/dL (1.8-2.4) Total Bilirubin 0.2 mg/dL (0.2-1.0) Aspartate Amino Transferase (AST) 12 U/L (15-37) L Alanine Aminotransferase (ALT) 17 U/L (14-59) Alkaline Phosphatase 58 U/L (46-116) Total Protein 6.7 g/dL (6.4-8.2) Albumin 2.9 g/dL (3.4-5.0) L Albumin/Globulin Ratio 0.8 (1.0-1.7) L Current Medications: Meds: Current Medications Albuterol/ Ipratropium (Duoneb) 3 ml 1X ONCE NEB Last administered on at 17:45; Start 02/28/17 at 17:45; Stop 02/28/17 at 17:46; Status DC Methylprednisolone Sodium Succinate (SOLU-Medrol 125MG VIAL) 125 mg 1X ONCE IV Last administered on 02/28/17at 17:45; Start 02/28/17 at 17:45; Stop 02/28/17 at 17:46; Status DC Norepinephrine Bitartrate (Levophed) 4 mg STK-MED ONCE IV ; Start 02/28/17 at 17 :43; Stop 02/28/17 at 17:44; Status DC Sodium Chloride 0 ml @ As Directed STK-MED ONCE .ROUTE ; Start 02/28/17 at 17:50 ; Stop 02/28/17 at 17:51; Status DC Furosemide (Lasix) 40 mg 1X ONCE IVP ; Start 02/28/17 at 19:00; Stop 02/28/17 at 19:01; Status DC Albuterol/ Ipratropium (Duoneb) 3 ml 1X ONCE NEB Last administered on at 19:12; Start 02/28/17 at 19:00; Stop 02/28/17 at 19:01; Status DC Albuterol/ Ipratropium (Duoneb) 3 ml 1X ONCE NEB Last administered on at 19:35; Start 02/28/17 at 19:00; Stop 02/28/17 at 19:01; Status DC Acetaminophen (Tylenol) 650 mg PRN Q4HRS PRN PO FEVER Last administered on 02/28at 19:37; Start 02/28/17 at 19:15; Stop 03/01/17 at 19:15; Status DC Albuterol/ Ipratropium (Duoneb) 3 ml RTQID NEB Last administered on 03/01/17at 17:52; Start 02/28/17 at 20:00; Stop 03/01/17 at 19:59; Status DC Piperacillin Sod/ Tazobactam Sod 4.5 gm/Sodium Chloride 50 ml @ 100 mls/hr 1X ONCE IV Last administered on 02/28/17at 19:38; Start 02/28/17 at 19:15; Stop at 19:45; Status DC Sodium Chloride 50 ml @ As Directed STK-MED ONCE .ROUTE ; Start 02/28/17 at 19: 32; Stop 02/28/17 at 19:33; Status DC Piperacillin Sod/ Tazobactam Sod (Zosyn) 4.5 gm STK-MED ONCE IV ; Start at 19:32; Stop 02/28/17 at 19:33; Status DC Methylprednisolone Sodium Succinate (SOLU-Medrol 40MG VIAL) 60 mg Q8HRS IV Last administered on 03/02/17at 05:34; Start 03/01/17 at 14:00; Stop 03/02/17 at 08:28; Status DC Piperacillin Sod/ Tazobactam Sod 4.5 gm/Sodium Chloride 50 ml @ 100 mls/hr Q6HRS IV Last administered on 03/03/17at 11:07; Start 03/01/17 at 12:00 Guaifenesin (MUCINEX ER with DM) 1 tab BID PO Last administered on 03/02/17at 08 :06; Start 03/01/17 at 09:00 Furosemide (Lasix) 20 mg 1X ONCE IVP Last administered on 03/01/17at 09:19; Start 03/01/17 at 08:30; Stop 03/01/17 at 08:31; Status DC Lactobacillus Rhamnosus (Culturelle) 1 cap BID PO Last administered on at 08:06; Start 03/01/17 at 21:00 Albuterol/ Ipratropium (Duoneb) 3 ml RTQID NEB Last administered on 03/03/17at 05:30; Start 03/01/17 at 20:00 Amlodipine Besylate (Norvasc) 5 mg DAILY PO Last administered on 03/02/17at 08: 07; Start 03/02/17 at 09:00; Stop 03/03/17 at 10:20; Status DC Methylprednisolone Sodium Succinate (SOLU-Medrol 40MG VIAL) 30 mg Q8HRS IV Last administered on 03/03/17at 05:09; Start 03/02/17 at 14:00; Stop 03/03/17 at 09:19; Status DC Olanzapine (ZyPREXA) 2.5 mg STK-MED ONCE .ROUTE Last administered on 03/02/17at 10:25; Start 03/02/17 at 10:20; Stop 03/02/17 at 10:21; Status DC Olanzapine (ZyPREXA ZYDIS) 2.5 mg PRN Q2HR PRN PO PSYCHOSIS Last administered on 03/03/17at 08:47; Start 03/02/17 at 10:30 Methylprednisolone Sodium Succinate (SOLU-Medrol 40MG VIAL) 30 mg DAILY IV ; Start 03/04/17 at 09:00 Non-Formulary Medication 1 ea DAILY PO Last administered on 03/03/17at 11:05; Start 03/03/17 at 10:30 Active Scripts Active Amoxicillin 500 Mg Capsule 1 Cap PO TID 5 Days Prednisone 10 Mg Tablet 30 Mg PO DAILY 4 Days Mucinex Dm Er 600-30 Mg Tablet (Guaifenesin/Dextromethorphan) 1 Each Tab.er.12h 1 Tab PO BID 14 Days Xopenex (Levalbuterol Hcl) 0.63 Mg/3 Ml Vial.neb 1 Vial NEB PRN TID PRN Catapres (Clonidine Hcl) 0.1 Mg Tablet 0.1 Mg PO Q8HRS Amlodipine Besylate 5 Mg Tablet 5 Mg PO DAILY I have reviewed the current psychotropics carefully including drug interactions. Risk benefit ratio favors no change other than as noted in my dictated progress note. Diagnosis: Problems: (1) Personality disorder in adult (2) Major depressive disorder, recurrent episode (3) Impulse control disorder (4) Anxiety disorder CHUY NUNEZ MD Mar 03, 2017 18:23
--- NOTE | 2017-03-03 21:58 | PN ---
DATE: 03/03/2017 CURRENT PROBLEMS: 1. Acute on chronic hypercapnic hypoxemic respiratory failure. 2. Emphysema with fibrosis. 3. Acute bronchitis. 4. Tobacco use disorder. 5. Noncompliance with regimen. 6. Chronic oxygen dependency. 7. Suspect borderline personality disorder. SUBJECTIVE: The patient is getting better. She has been doing some of her regimen, refused her probiotic and guaifenesin this morning. She did have her steroid this morning, we are also working on tritrue paperwork. OBJECTIVE: VITAL SIGNS: Blood pressure 139/79, respirations 22, pulse ox 97% on 3 liters, temperature 97.7. GENERAL: Color actually has improved. She is ____ working to breathe now. LUNGS: Clear. CARDIOVASCULAR: Regular rhythm and rate. ABDOMEN: Soft, nontender. EXTREMITIES: Without edema. PLAN: Work toward discharge today or tomorrow. HANNAH LENZ DO DR: HILARY/gigi JOB#: [id number] / [id number]
--- NOTE | 2017-03-04 01:10 | PN ---
DATE: 03/02/2017 PSYCHIATRIC PROGRESS NOTE This is a late entry, date of service 03/02/2017 covers elements not covered in my initial note for 03/02/2017. SUBJECTIVE: The patient was seen individually evening of 03/02/2017 in ICU bed 2. Per nursing report, she did receive a couple of doses of Zyprexa and has been less paranoid, suspicious, and more cooperative with treatment since then. REVIEW OF SYSTEMS: Still positive for shortness of breath, tiredness. No CV, , GI system symptoms on review. MENTAL STATUS EXAM: Reasonably oriented. Speech is coherent, abstraction fair, computation impaired, remained somewhat anxious, distractible, minimizes any of her psychiatric problems, but more cooperative with treatment. No suicidal or homicidal ideation. LABORATORY DATA: Reviewed. IMPRESSION: Major depressive disorder, adjustment disorder with depressed mood and anxiety, psychotic disorder, unspecified; personality disorder, unspecified. PLAN: From a psychiatric standpoint, no change for now. Continue Zyprexa p.r.n. We will continue to follow the patient. CHUY NUNEZ MD DR: LANG/gigi JOB#: [id number] / [id number]
[2017-03-04] MEDS ORDERED: methylPREDNISolone SOD SUCC PF 40 MG/ML VIAL. IV SCH (09:00)
--- NOTE | 2017-03-04 14:07 | PDOC3 ---
Discharge Summary Visit Information Date of Admission: Feb 28, 2017 Date of Discharge: Mar 04, 2017 Final Diagnosis Problems Medical Problems: (1) COPD exacerbation Status: Acute CURRENT PROBLEMS: 1. Acute on chronic hypercapnic hypoxemic respiratory failure. 2. Emphysema with fibrosis. 3. Acute bronchitis. 4. Tobacco use disorder. 5. Noncompliance with regimen. 6. Chronic oxygen dependency. 7. Suspect borderline personality disorder. Problems: Brief Hospital Course Allergies Allergies Coded Allergies Type Severity Reaction Last Updated Verified Sulfa (Sulfonamide Antibiotics) Allergy Intermediate 01/23/15 Yes cefaclor Allergy Intermediate 04/23/15 Yes ciprofloxacin Allergy Intermediate 04/23/15 Yes doxycycline Allergy Intermediate 04/23/15 Yes erythromycin base Allergy Intermediate 04/23/15 Yes iodine Allergy Intermediate 04/23/15 No lisinopril Allergy Intermediate 07/04/15 Yes metronidazole Allergy Intermediate 04/23/15 Yes tetracycline Allergy Intermediate 01/23/15 Yes Vital Signs Vital Signs Date Time Temp Pulse Resp B/P (MAP) Pulse Ox O2 Delivery O2 Flow Rate FiO2 03/03/17 11:10 97.7 105 22 159/92 (114) 90 Nasal Cannula 3.0 Lab Results Laboratory Tests Test 03/03/17 05:43 White Blood Count 7.5 x10^3/uL (4.0-11.0) Red Blood Count 4.44 x10^6/uL (3.50-5.40) Hemoglobin 13.1 g/dL (12.0-15.5) Hematocrit 39.5 % (36.0-47.0) Mean Corpuscular Volume 89 fL (79-100) Mean Corpuscular Hemoglobin 30 pg (25-35) Mean Corpuscular Hemoglobin Concent 33 g/dL (31-37) Red Cell Distribution Width 13.1 % (11.5-14.5) Platelet Count 233 x10^3/uL (140-400) Neutrophils (%) (Auto) 82 % (31-73) Lymphocytes (%) (Auto) 11 % (24-48) Monocytes (%) (Auto) 7 % (0-9) Eosinophils (%) (Auto) 0 % (0-3) Basophils (%) (Auto) 0 % (0-3) Neutrophils # (Auto) 6.1 x10^3uL (1.8-7.7) Lymphocytes # (Auto) 0.8 x10^3/uL (1.0-4.8) Monocytes # (Auto) 0.5 x10^3/uL (0.0-1.1) Eosinophils # (Auto) 0.0 x10^3/uL (0.0-0.7) Basophils # (Auto) 0.0 x10^3/uL (0.0-0.2) Sodium Level 141 mmol/L (136-145) Potassium Level 3.9 mmol/L (3.5-5.1) Chloride Level 98 mmol/L (98-107) Carbon Dioxide Level 39 mmol/L (21-32) Anion Gap 4 (6-14) Blood Urea Nitrogen 10 mg/dL (7-20) Creatinine 0.5 mg/dL (0.6-1.0) Estimated GFR (Cockcroft-Gault) 126.7 BUN/Creatinine Ratio 20 (6-20) Glucose Level 114 mg/dL (70-99) Calcium Level 8.9 mg/dL (8.5-10.1) Magnesium Level 1.8 mg/dL (1.8-2.4) Total Bilirubin 0.2 mg/dL (0.2-1.0) Aspartate Amino Transf (AST/SGOT) 12 U/L (15-37) Alanine Aminotransferase (ALT/SGPT) 17 U/L (14-59) Alkaline Phosphatase 58 U/L (46-116) Total Protein 6.7 g/dL (6.4-8.2) Albumin 2.9 g/dL (3.4-5.0) Albumin/Globulin Ratio 0.8 (1.0-1.7) Brief Hospital Course Ms. Mark is a 56 old [sex] who presented with [ ] HISTORY OF PRESENT ILLNESS: This is a 56-year-old female with longstanding COPD, who presented to the Emergency Room in respiratory distress. Daughter said she has been ill for several days, noticed that her feet were swelling. She is still smoking a couple of cartons a month. She is requiring oxygen at home, but takes it off when she goes outside to smoke. Then, comes back and is quite winded, but she became very weak 2 days ago, was not eating very well, noted shortness of breath with exertion, saturation was of 68% on the concentrator and then 92-93% on portable. She has been very resistant to care in the past. Family has had a time with her getting her to comply with regimen that would be in her best interest. In fact, even here, she is negotiating and refusing to have a lot of medications. SHE WAS TREATED WITH ANTIBIOTICS, STEROIDS, BREATHING TREATMENTS WHEN SHE WOULD TAKE THEM. SHE REFUSED SEVERAL TIMES. HER BROWN THICK SPUTUM IMPROVED WITH ANTIBIOTICS. SHE HAD IMPROVED ENOUGH TO BE DISCHARGED ON 03/03. SHE WOULD NOT SIGN DPOA PAPERS SO HER DAUGHTER COULD HELP MANAGE HER AFFAIRS SHE MAKES EXTREMELY IRRATIONAL CHOICE WITH REGARDS TO HER MEDICAL CARE. Discharge Information Condition at Discharge: Improved Disposition/Orders: D/C to Home w/ HH Dischare Medications Current Medications Albuterol/ Ipratropium (Duoneb) 3 ml 1X ONCE NEB Last administered on at 17:45; Start 02/28/17 at 17:45; Stop 02/28/17 at 17:46; Status DC Methylprednisolone Sodium Succinate (SOLU-Medrol 125MG VIAL) 125 mg 1X ONCE IV Last administered on 02/28/17at 17:45; Start 02/28/17 at 17:45; Stop 02/28/17 at 17:46; Status DC Norepinephrine Bitartrate (Levophed) 4 mg STK-MED ONCE IV ; Start 02/28/17 at 17 :43; Stop 02/28/17 at 17:44; Status DC Sodium Chloride 0 ml @ As Directed STK-MED ONCE .ROUTE ; Start 02/28/17 at 17:50 ; Stop 02/28/17 at 17:51; Status DC Furosemide (Lasix) 40 mg 1X ONCE IVP ; Start 02/28/17 at 19:00; Stop 02/28/17 at 19:01; Status DC Albuterol/ Ipratropium (Duoneb) 3 ml 1X ONCE NEB Last administered on at 19:12; Start 02/28/17 at 19:00; Stop 02/28/17 at 19:01; Status DC Albuterol/ Ipratropium (Duoneb) 3 ml 1X ONCE NEB Last administered on at 19:35; Start 02/28/17 at 19:00; Stop 02/28/17 at 19:01; Status DC Acetaminophen (Tylenol) 650 mg PRN Q4HRS PRN PO FEVER Last administered on 02/28at 19:37; Start 02/28/17 at 19:15; Stop 03/01/17 at 19:15; Status DC Albuterol/ Ipratropium (Duoneb) 3 ml RTQID NEB Last administered on 03/01/17at 17:52; Start 02/28/17 at 20:00; Stop 03/01/17 at 19:59; Status DC Piperacillin Sod/ Tazobactam Sod 4.5 gm/Sodium Chloride 50 ml @ 100 mls/hr 1X ONCE IV Last administered on 02/28/17at 19:38; Start 02/28/17 at 19:15; Stop at 19:45; Status DC Sodium Chloride 50 ml @ As Directed STK-MED ONCE .ROUTE ; Start 02/28/17 at 19: 32; Stop 02/28/17 at 19:33; Status DC Piperacillin Sod/ Tazobactam Sod (Zosyn) 4.5 gm STK-MED ONCE IV ; Start at 19:32; Stop 02/28/17 at 19:33; Status DC Methylprednisolone Sodium Succinate (SOLU-Medrol 40MG VIAL) 60 mg Q8HRS IV Last administered on 03/02/17at 05:34; Start 03/01/17 at 14:00; Stop 03/02/17 at 08:28; Status DC Piperacillin Sod/ Tazobactam Sod 4.5 gm/Sodium Chloride 50 ml @ 100 mls/hr Q6HRS IV Last administered on 03/03/17at 11:07; Start 03/01/17 at 12:00; Stop at 20:44; Status DC Guaifenesin (MUCINEX ER with DM) 1 tab BID PO Last administered on 03/02/17at 08 :06; Start 03/01/17 at 09:00; Stop 03/03/17 at 20:44; Status DC Furosemide (Lasix) 20 mg 1X ONCE IVP Last administered on 03/01/17at 09:19; Start 03/01/17 at 08:30; Stop 03/01/17 at 08:31; Status DC Lactobacillus Rhamnosus (Culturelle) 1 cap BID PO Last administered on at 08:06; Start 03/01/17 at 21:00; Stop 03/03/17 at 20:44; Status DC Albuterol/ Ipratropium (Duoneb) 3 ml RTQID NEB Last administered on 03/03/17at 05:30; Start 03/01/17 at 20:00; Stop 03/03/17 at 20:44; Status DC Amlodipine Besylate (Norvasc) 5 mg DAILY PO Last administered on 03/02/17at 08: 07; Start 03/02/17 at 09:00; Stop 03/03/17 at 10:20; Status DC Methylprednisolone Sodium Succinate (SOLU-Medrol 40MG VIAL) 30 mg Q8HRS IV Last administered on 03/03/17at 05:09; Start 03/02/17 at 14:00; Stop 03/03/17 at 09:19; Status DC Olanzapine (ZyPREXA) 2.5 mg STK-MED ONCE .ROUTE Last administered on 03/02/17at 10:25; Start 03/02/17 at 10:20; Stop 03/02/17 at 10:21; Status DC Olanzapine (ZyPREXA ZYDIS) 2.5 mg PRN Q2HR PRN PO PSYCHOSIS Last administered on 03/03/17at 08:47; Start 03/02/17 at 10:30; Stop 03/03/17 at 20:44; Status DC Methylprednisolone Sodium Succinate (SOLU-Medrol 40MG VIAL) 30 mg DAILY IV ; Start 03/04/17 at 09:00; Stop 03/04/17 at 09:00; Status DC Non-Formulary Medication 1 ea DAILY PO Last administered on 03/03/17at 11:05; Start 03/03/17 at 10:30; Stop 03/03/17 at 20:44; Status DC Active Scripts Active Amoxicillin 500 Mg Capsule 1 Cap PO TID 5 Days Prednisone 10 Mg Tablet 30 Mg PO DAILY 4 Days Mucinex Dm Er 600-30 Mg Tablet (Guaifenesin/Dextromethorphan) 1 Each Tab.er.12h 1 Tab PO BID 14 Days Xopenex (Levalbuterol Hcl) 0.63 Mg/3 Ml Vial.neb 1 Vial NEB PRN TID PRN Catapres (Clonidine Hcl) 0.1 Mg Tablet 0.1 Mg PO Q8HRS Amlodipine Besylate 5 Mg Tablet 5 Mg PO DAILY Patient Instructions Patient Instuctions DISCHARGE DONE ON [facility] HANNAH LENZ DO Mar 04, 2017 14:07
--- NOTE | 2017-03-05 15:40 | PN ---
DATE: 03/03/2017 PSYCHIATRIC PROGRESS NOTE This is a late entry 03/03/2017, covers elements not covered in my initial note 03/03/2017. SUBJECTIVE: I met with the patient the evening of 03/03/2017. Per nursing report, the patient has been intermittently compliant with her prescribed treatments. She does accept the IV treatments. She is being discharged. I met with her sister together with the patient. We addressed her need to have outpatient treatment at the [facility]. The patient was noncommittal, but did not categorically refuse to go to the [facility]. The sister did share that she had other family members who gone there and how they had been benefited and the patient was acceptable to hearing this. She continues to minimize any psychiatric problems. She still has difficulty breathing. REVIEW OF SYSTEMS: No CV, , GI system symptoms on review. MENTAL STATUS EXAM: Reasonably oriented. Speech coherent, abstraction fair, computation impaired, attention span short. Mood and affect somewhat anxious, labile. LABORATORY DATA: Reviewed. IMPRESSION: Unchanged from initial note. PLAN: No change from a psychiatric standpoint, continue Zyprexa p.r.n. and outpatient treatment at the [facility]. CHUY NUNEZ MD DR: LANG/gigi JOB#: [id number] / [id number]
== END 2017-03-03 20:15 | disposition home health service (06) | DRG 189 ==
LOC: ER 17:27 → OBSVTOIN 22:32 → ICU 22:32 → INTOOBSV 22:32
PROVIDERS: ADMIT Internal Medicine; ATTEND Internal Medicine
PROC: 5A09357 Assistance with Respiratory Ventilation, Less than 24 Consecutive Hours, Continuous Positive Airway Pressure (ICD-10-PCS; principal; 2017-02-28)
PROC: 5A09357 Assistance with Respiratory Ventilation, Less than 24 Consecutive Hours, Continuous Positive Airway Pressure (ICD-10-PCS; 2017-02-28)
DX: J96.21 Acute and chronic respiratory failure with hypoxia (principal); F33.9 Major depressive disorder, recurrent, unspecified; I11.0 Hypertensive heart disease with heart failure; I27.29 Other secondary pulmonary hypertension; I50.9 Heart failure, unspecified; J44.0 Chronic obstructive pulmonary disease with (acute) lower respiratory infection; J44.1 Chronic obstructive pulmonary disease with (acute) exacerbation; F17.210 Nicotine dependence, cigarettes, uncomplicated; F29 Unspecified psychosis not due to a substance or known physiological condition; F43.23 Adjustment disorder with mixed anxiety and depressed mood; F60.9 Personality disorder, unspecified; F63.9 Impulse disorder, unspecified; J20.9 Acute bronchitis, unspecified; J96.22 Acute and chronic respiratory failure with hypercapnia; Z85.118 Personal history of other malignant neoplasm of bronchus and lung; Z91.19 Patient's noncompliance with other medical treatment and regimen; Z99.81 Dependence on supplemental oxygen; Z88.2 Allergy status to sulfonamides; Z88.8 Allergy status to other drugs, medicaments and biological substances; Z88.1 Allergy status to other antibiotic agents; Z91.041 Radiographic dye allergy status; Z90.49 Acquired absence of other specified parts of digestive tract; Z90.89 Acquired absence of other organs
CPT/HCPCS: 36415; 36600; 71045; 71046; 80053; 81001; 82550; 82803; 83605; 83735; 83880; 84484; 85025; 85379; 87086; 87641; 87804; 93005; 93306; 94640; 94660; J2543; J2920; J2930; J7620; 97110; 97530; 97535

== ENCOUNTER 2017-06-29 08:34 | Emergency (ER) | payer MEDICARE, MEDICAID ==
[~2017-06-29] VITALS: Ht 157.5 cm; Wt 52.8 kg
[~2017-06-29 08:34] MED LIST changes: +AMOX500C PO; -ASPI81TA44 PO; +ASPI81TA59 PO; +PRED-220 PO
[2017-06-29] MEDS ORDERED: methylPREDNISolone SOD SUCC PF 125 MG/2 ML VIAL. IV ONE (09:00)
[2017-06-29] MEDS ORDERED: IPRATRPIUM/ALBUTEROL 0.5/2.5MG 3 ML NEBU. NEB ONE ×2 (09:00→09:15)
[2017-06-29 09:10] LABS: BASO # 0.1 x10^3/uL (0.0-0.2); BASO % 1 % (0-3); EOS # 0.2 x10^3/uL (0.0-0.7); EOS % 3 % (0-3); HEMOGLOBIN 13.6 g/dL (12.0-15.5); LYMPH # 1.2 x10^3/uL (1.0-4.8); LYMPH % 18 % (24-48); MEAN CORPUSCULAR HEMOGLOBIN 30 pg (25-35); MEAN CORPUSCULAR HGB CONC 33 g/dL (31-37); MEAN CORPUSCULAR VOLUME 90 fL (79-100); MONO # 0.4 x10^3/uL (0.0-1.1); MONO % 5 % (0-9); NEUT % 73 % (31-73); PLATELET COUNT 257 x10^3/uL (140-400); RED BLOOD COUNT 4.57 x10^6/uL (3.50-5.40); RED CELL DISTRIBUTION WIDTH 13.4 % (11.5-14.5); WHITE BLOOD COUNT 6.9 x10^3/uL (4.0-11.0)
--- NOTE | 2017-06-29 09:11 | RAD ---
Exam: AP portable chest History: Shortness of air. Comparison: March 03, 2017. Findings: The heart and mediastinal structures are within normal limits for size. Lungs are without infiltrate. No pleural effusion or pneumothorax is identified. Lung salcido appear hyperinflated, compatible with obstructive lung disease. Aortic atherosclerosis is seen. Impression: 1. No acute cardiopulmonary process. Electronically signed by: Yusef Recinos MD (06/29/2017 9:07 AM) [facility]
--- NOTE | 2017-06-29 09:19 | PHYS DOC ---
Past History Past Medical History: Anxiety, Cancer, CHF, COPD, Hypertension, Other Additional Past Medical Histor: pulmonary hypertension, cor pulmonale, noncompliance Past Surgical History: Cancer Surgery, Other Smoking: Cigarettes Alcohol Use: None Drug Use: None Adult General Chief Complaint Chief Complaint: SHORTNESS OF BREATH HPI HPI 57-year-old female presents EMS with shortness of breath. Patient has known COPD and is on 3 L of oxygen at baseline. This morning, she was exposed to aerosol irritants of perfume at her house. She has had adverse reactions to sense in the past and she felt like she might be having an allergic reaction. Her home O2 sensor showed her oxygen to be 80-85%. She felt short of breath and wanted to go to the hospital. Her daughter was unable bring her so she called an ambulance. On arrival, EMS said that her sats were 80%. She refused albuterol breathing treatment as well as BiPAP and a nonrebreather. They placed her on nasal cannula at 6 L and her oxygen saturations improved to 91%. On arrival to the ED, the patient does go to was 85% on her 3 L. We increased it to 6 L. The patient continues to refuse albuterol stating that she is allergic. She can only take Xopenex. Further conversation reveals that she does not like the side effects but is not truly allergic. She has had increased cough the last 2 days with whitish sputum. She denies fever or chills. Review of Systems Review of Systems Constitutional: Denies fever or chills [] Eyes: Denies change in visual acuity, redness, or eye pain [] HENT: Denies nasal congestion or sore throat [] Respiratory: Moderate shortness of breath [] Cardiovascular: No additional information not addressed in HPI [] GI: Denies abdominal pain, nausea, vomiting, bloody stools or diarrhea [] : Denies dysuria or hematuria [] Musculoskeletal: Denies back pain or joint pain [] Integument: Denies rash or skin lesions [] Neurologic: Denies headache, focal weakness or sensory changes [] Endocrine: Denies polyuria or polydipsia [] All other systems were reviewed and found to be within normal limits, except as documented in this note. Current Medications Current Medications Current Medications Medications (Trade) Dose Ordered Sig/Flory Start Time Stop Time Status Last Admin Dose Admin Albuterol/ Ipratropium (Duoneb) 3 ml 1X ONCE 06/29/17 09:00 06/29/17 09:01 DC Methylprednisolone Sodium Succinate (SOLU-Medrol 125MG VIAL) 125 mg 1X ONCE 06/29/17 09:00 06/29/17 09:01 DC 06/29/17 08:59 125 MG Allergies Allergies Allergies Coded Allergies Type Severity Reaction Last Updated Verified Sulfa (Sulfonamide Antibiotics) Allergy Intermediate 06/29/17 Yes cefaclor Allergy Intermediate 06/29/17 Yes ciprofloxacin Allergy Intermediate 06/29/17 Yes doxycycline Allergy Intermediate 06/29/17 Yes erythromycin base Allergy Intermediate 06/29/17 Yes iodine Allergy Intermediate 06/29/17 No lisinopril Allergy Intermediate 06/29/17 Yes metronidazole Allergy Intermediate 06/29/17 Yes tetracycline Allergy Intermediate 06/29/17 Yes Physical Exam Physical Exam Constitutional: Well developed, well nourished, no acute distress, non-toxic appearance. [] HENT: Normocephalic, atraumatic, bilateral external ears normal, oropharynx moist, no oral exudates, nose normal. [] Eyes: PERRLA, EOMI, conjunctiva normal, no discharge. [] Neck: Normal range of motion, no tenderness, supple, no stridor. [] Cardiovascular:Heart rate regular rhythm, no murmur [] Lungs & Thorax: decreased breath sounds bilaterally, no wheezing [] Abdomen: Bowel sounds normal, soft, no tenderness, no masses, no pulsatile masses. [] Skin: Warm, dry, no erythema, no rash. [] Back: No tenderness, no CVA tenderness. [] Extremities: No tenderness, no cyanosis, no clubbing, ROM intact, no edema. [] Neurologic: Alert and oriented X 3, normal motor function, normal sensory function, no focal deficits noted. [] Psychologic: anxious. [] EKG EKG [] Radiology/Procedures Radiology/Procedures Exam: AP portable chest History: Shortness of air. Comparison: March 03, 2017. Findings: The heart and mediastinal structures are within normal limits for size. Lungs are without infiltrate. No pleural effusion or pneumothorax is identified. Lung salcido appear hyperinflated, compatible with obstructive lung disease. Aortic atherosclerosis is seen. Impression: 1. No acute cardiopulmonary process. Electronically signed by: Yusef Recinos MD (06/29/2017 9:07 AM) [facility][] Course & Med Decision Making Course & Med Decision Making Pertinent Labs and Imaging studies reviewed. (See chart for details) The patient is very anxious. She states having multiple allergies and intolerances. It was difficult to convince her to try a DuoNeb DuoNeb. She has had it in the past according to her chart without complication. Her oxygen saturation has been improving. She is on 4 L at this time. We will give her 125 mg of Solu-Medrol. The patient's labs are unremarkable chest x-ray is unremarkable. After a single breathing treatment and steroids, the patient is at her baseline of 3 L of oxygen with saturations in the 90s. There are no signs of infection. She is stable for discharge [] Dragon Disclaimer Dragon Disclaimer This electronic medical record was generated, in whole or in part, using a voice recognition dictation system. Departure Departure: Referrals: GILDA BECK (PCP) ALICIA ARAGON DO June 29, 2017 09:19
[2017-06-29 09:26] LABS: CALCIUM 8.9 mg/dL (8.5-10.1); CREATININE 0.5 mg/dL (0.6-1.0); GFR 126.3; POTASSIUM 4.4 mmol/L (3.5-5.1)
[2017-06-29 10:26] LABS: AMORPHOUS SEDIMENT,UR PRESENT /HPF; BACTERIA,URINE FEW /HPF (0-FEW); BILIRUBIN,URINE NEG (NEG); CLARITY,URINE TURBID; COLOR,URINE YELLOW; GLUCOSE,URINE NEG (NEG); NITRITE,URINE NEG (NEG); RBC,URINE 0 /HPF (0-2); SQUAMOUS EPITHELIAL CELL,UR OCC /LPF; UROBILINOGEN,URINE 0.2 mg/dL (0.2 mg/dL)
[2017-06-29 10:50] VITALS: BP 137/86
== END 2017-06-29 10:50 | disposition home or self-care (01) ==
LOC: ER 08:34
DX: R06.02 Shortness of breath (principal); F41.9 Anxiety disorder, unspecified; J44.9 Chronic obstructive pulmonary disease, unspecified; I11.0 Hypertensive heart disease with heart failure; I50.9 Heart failure, unspecified; F17.210 Nicotine dependence, cigarettes, uncomplicated; Z88.2 Allergy status to sulfonamides; Z88.1 Allergy status to other antibiotic agents; Z91.041 Radiographic dye allergy status; Z88.8 Allergy status to other drugs, medicaments and biological substances; Z91.19 Patient's noncompliance with other medical treatment and regimen
CPT/HCPCS: 36415; 71045; 80048; 81001; 83880; 85025; 87086; 94640; 96374; 99285; J2930; 87186; J7620

== ENCOUNTER 2017-10-30 19:48 | Inpatient (IN) | payer MEDICARE, MEDICAID ==
[~2017-10-30] VITALS: Ht 157.5 cm; Wt 57.2 kg
[~2017-10-30 19:48] MED LIST changes: -AMLO5TAB2 PO; +AMLO5TAB7 PO
--- NOTE | 2017-10-30 20:20 | ED.ADGEN ---
Past History Past Medical History: Anxiety, Cancer, CHF, COPD, Hypertension, Other Additional Past Medical Histor: pulmonary hypertension, cor pulmonale, noncompliance Past Surgical History: Cancer Surgery, Other Smoking: Cigarettes Alcohol Use: Rarely Drug Use: None Adult General Chief Complaint Chief Complaint ".. Grunts.. Yes... and No answers..." " She is so sedate... can't hardly get her to respond... she very confused.. did not even go out to smoke today...She hallucinates.. " Family HPI HPI Patient is a 57 year old female who presents with above hx and complaints of mental status changes. Pt. appears very sedated. Reportedly no new meds or use of pain or sedating meds. Daughters states she is very confused and hallucinating today. Hx. of COPD, CHF, HTN, Hx. of past colon cancer and resection. Hx. of Partial Pneumonectomy. Pt. has some new redness and edema in foot and ankles. Pt. will move everything on request, but requires repeat requests. Pt. had no travel or ill contacts. Pt. has not been compliant with meds. Review of Systems Review of Systems No complaints- very sedated Constitutional: Denies fever or chills [] Eyes: Denies change in visual acuity, redness, or eye pain [] HENT: Denies nasal congestion or sore throat [] Respiratory: Denies cough or shortness of breath [] Cardiovascular: No additional information not addressed in HPI [] GI: Denies abdominal pain, nausea, vomiting, bloody stools or diarrhea [] : Denies dysuria or hematuria [] Musculoskeletal: Denies back pain or joint pain [] Integument: Denies rash or skin lesions [] Neurologic: Denies headache, focal weakness or sensory changes [] Endocrine: Denies polyuria or polydipsia [] All other systems were reviewed and found to be within normal limits, except as documented in this note. Family History Family History Non-contributory Current Medications Current Medications Current Medications Medications (Trade) Dose Ordered Sig/Flory Start Time Stop Time Status Last Admin Dose Admin Albuterol/ Ipratropium (Duoneb) 3 ml 1X ONCE 10/30/17 23:30 10/31/17 00:10 DC 10/30/17 23:31 3 ML Lactated Ringer's 1,000 ml @ 1,000 mls/hr Q1H 10/30/17 21:30 10/30/17 22:29 DC 10/30/17 23:55 1,000 MLS/HR Methylprednisolone Sodium Succinate (SOLU-Medrol 125MG VIAL) 125 mg 1X ONCE 10/30/17 23:30 10/31/17 00:10 DC 10/30/17 23:57 125 MG Ondansetron HCl (Zofran) 4 mg PRN Q4HRS PRN 10/30/17 23:30 10/31/17 23:29 10/30/17 23:31 4 MG Sodium Chloride 250 ml @ As Directed STK-MED ONCE 10/30/17 23:38 10/30/17 23:39 DC Vancomycin HCl (Vanco Per Pharmacy) 1 each PRN DAILY PRN 10/30/17 23:30 10/31/17 02:24 1 EACH Vancomycin HCl (Vancomycin) 1 gm STK-MED ONCE 10/30/17 23:38 10/30/17 23:39 DC Vancomycin HCl 1 gm/Sodium Chloride 250 ml @ 250 mls/hr 1X ONCE 10/30/17 23:30 10/31/17 00:29 DC 10/30/17 23:57 250 MLS/HR See nursing for home meds- Family reports she has been non-compliant with home meds. Allergies Allergies Allergies Coded Allergies Type Severity Reaction Last Updated Verified Sulfa (Sulfonamide Antibiotics) Allergy Intermediate 06/29/17 Yes cefaclor Allergy Intermediate 06/29/17 Yes ciprofloxacin Allergy Intermediate 06/29/17 Yes doxycycline Allergy Intermediate 06/29/17 Yes erythromycin base Allergy Intermediate 06/29/17 Yes iodine Allergy Intermediate 10/30/17 Yes lisinopril Allergy Intermediate 06/29/17 Yes metronidazole Allergy Intermediate 06/29/17 Yes tetracycline Allergy Intermediate 06/29/17 Yes Physical Exam Physical Exam Constitutional: Extremely sedated appearance. [] HENT: Normocephalic, atraumatic, bilateral external ears normal, oropharynx moist, no oral exudates, nose clear rhinorrhea. Eyes: PERRLA, EOMI, conjunctiva normal, no discharge. [] Neck: Normal range of motion, no tenderness, supple, no stridor. [] Kyphosis Cardiovascular: Tachycardia Heart rate regular rhythm, no murmur []PMI to Lt. Lungs & Thorax: Bilateral breath sounds basilar crackles, wheezes through out, apexes are equal on auscultation []Snoring at times. Abdomen: Bowel sounds normal, soft, no tenderness, no masses, no pulsatile masses. []Mild distention. Scars. Skin: Warm, dry, no erythema, no rash. Poor turgor. Back: No tenderness, no CVA tenderness. [] Kyphosis Extremities: No tenderness, no cyanosis, no clubbing, ROM intact, no edema. [] Arthritic changes. Cellulitis on ankles. Neurologic: Alert and oriented X to name only, moves all ext with repeat requests, distal sensory- with draws with pain and cross reacts. [] Psychologic: Affect flat,,requires repeat stimulation to get responses. Current Patient Data Vital Signs Vital Signs Date Time Temp Pulse Resp B/P (MAP) Pulse Ox O2 Delivery O2 Flow Rate FiO2 10/31/17 00:15 85 22 123/74 (90) 94 BiPAP/CPAP 10/30/17 21:25 98.4 4.0 Lab Results Laboratory Tests Test 10/30/17 21:15 10/30/17 21:45 10/30/17 22:55 Urine Collection Type Void Urine Color Yellow Urine Clarity Hazy Urine pH 6.0 Urine Specific [place] >=1.030 Urine Protein 30 mg/dl (NEG-TRACE) Urine Glucose (UA) Neg mg/dL (NEG) Urine Ketones (Stick) 15 mg/dL (NEG) Urine Blood Trace (NEG) Urine Nitrite Neg (NEG) Urine Bilirubin Neg (NEG) Urine Urobilinogen Dipstick 0.2 mg/dL (0.2 mg/dL) Urine Leukocyte Esterase Neg (NEG) Urine RBC Occ /HPF (0-2) Urine WBC 1-4 /HPF (0-4) Urine Squamous Epithelial Cells Mod /LPF Urine Bacteria Few /HPF (0-FEW) Urine Opiates Screen Neg (NEG) Urine Methadone Screen Neg (NEG) Urine Barbiturates Neg (NEG) Urine Phencyclidine Screen Neg (NEG) Urine Amphetamine/Methamphetamine Neg (NEG) Urine Benzodiazepines Screen Neg (NEG) Urine Cocaine Screen Neg (NEG) Urine Cannabinoids Screen Neg (NEG) Urine Ethyl Alcohol Neg (NEG) White Blood Count 7.7 x10^3/uL (4.0-11.0) Red Blood Count 4.38 x10^6/uL (3.50-5.40) Hemoglobin 13.2 g/dL (12.0-15.5) Hematocrit 40.0 % (36.0-47.0) Mean Corpuscular Volume 91 fL (79-100) Mean Corpuscular Hemoglobin 30 pg (25-35) Mean Corpuscular Hemoglobin Concent 33 g/dL (31-37) Red Cell Distribution Width 12.9 % (11.5-14.5) Platelet Count 250 x10^3/uL (140-400) Neutrophils (%) (Auto) 74 % (31-73) H Lymphocytes (%) (Auto) 14 % (24-48) L Monocytes (%) (Auto) 9 % (0-9) Eosinophils (%) (Auto) 2 % (0-3) Basophils (%) (Auto) 1 % (0-3) Neutrophils # (Auto) 5.7 x10^3uL (1.8-7.7) Lymphocytes # (Auto) 1.1 x10^3/uL (1.0-4.8) Monocytes # (Auto) 0.7 x10^3/uL (0.0-1.1) Eosinophils # (Auto) 0.2 x10^3/uL (0.0-0.7) Basophils # (Auto) 0.1 x10^3/uL (0.0-0.2) Prothrombin Time 9.9 SEC (9.4-11.4) Prothrombin Time INR 1.0 (0.9-1.1) PTT 29 SEC (23-33) D-Dimer (Linda) 0.23 mg/L (0.00-0.50) Sodium Level 134 mmol/L (136-145) L Potassium Level 4.3 mmol/L (3.5-5.1) Chloride Level 91 mmol/L (98-107) L Carbon Dioxide Level 48 mmol/L (21-32) H Anion Gap -5 (6-14) L Blood Urea Nitrogen 14 mg/dL (7-20) Creatinine 0.5 mg/dL (0.6-1.0) L Estimated GFR (Cockcroft-Gault) 126.3 Glucose Level 147 mg/dL (70-99) H Calcium Level 9.1 mg/dL (8.5-10.1) Magnesium Level 1.9 mg/dL (1.8-2.4) Total Bilirubin 0.2 mg/dL (0.2-1.0) Direct Bilirubin 0.1 mg/dL (0.0-0.2) Aspartate Amino Transferase (AST) 14 U/L (15-37) L Alanine Aminotransferase (ALT) 23 U/L (14-59) Alkaline Phosphatase 79 U/L (46-116) Creatine Kinase 67 U/L (26-192) Creatine Kinase MB (Mass) 6.6 ng/mL (0.0-3.6) H Creatine Kinase MB Relative Index 9.9 % (0-4) H Troponin I Quantitative < 0.017 ng/mL (0-0.055) IH-Pdx-P-Type Natriuretic Peptide 492 pg/mL (0-124) H Total Protein 6.6 g/dL (6.4-8.2) Albumin 3.5 g/dL (3.4-5.0) Lipase 107 U/L (73-393) Ethyl Alcohol Level < 10 mg/dL (0-10) Blood pH 7.19 (7.35-7.45) *L Blood Gas PCO2 128 mmHg (35-45) *H Blood Gas PO2 161 mmHg (80-100) H Blood Gas HCO3 49 mmol/L (22-26) H Arterial Bld O2 Saturation (Calc) 99 % (92-99) FiO2 34 % EKG EKG My interpretation of EKG shows a sinus rhythm at 92 bpm. No acute morphology[] Radiology/Procedures Radiology/Procedures My interpretation of CT head shows no shift, mass, edema, fracture, bleed, does have chronic changes. My interpretation chest x-ray shows chronic COPD/emphysema type changes. Fibrosis, anti-closed phrenic angles, scarring, no marked acute interval change. Degenerative joint changes. Course & Med Decision Making Course & Med Decision Making Pertinent Labs and Imaging studies reviewed. (See chart for details) Pt. placed on Bipap= marked increase in level of awareness. Pt. now alert and responsive. Now argumentative. Markedly improved after a few minutes of Bipap. Critical Care =90 min. Discussed presentation, testing and tx. plan with Dr. Thompson. Pt. admitted to Dr. Thompson- on Bipap. [] Final Impression Final Impression 1. Respiratory Acidosis 7.1/CO2= 128, Resp. Failure 2. Mental Status Change[] 3. COPD exacerbation 4. Hyponatremia 134 5. DM 147 6. Hx. of Colon Cancer- resection 7. Hx,. of CHF BNP 492 8. Cellulitis Dragon Disclaimer Dragon Disclaimer This electronic medical record was generated, in whole or in part, using a voice recognition dictation system. ARGENTINA OSBORNE MD Oct 30, 2017 20:20
[2017-10-30] MEDS ORDERED: IV RINGERS SOLUTION,LACTATED 1,000 ML IV SCH (21:30)
[2017-10-30 21:37] LABS: BILIRUBIN,URINE NEG (NEG); CLARITY,URINE HAZY; COLOR,URINE YELLOW; GLUCOSE,URINE NEG (NEG); NITRITE,URINE NEG (NEG); UROBILINOGEN,URINE 0.2 mg/dL (0.2 mg/dL)
[2017-10-30 21:40] LABS: RBC,URINE OCC /HPF (0-2)
[2017-10-30 21:41] LABS: BACTERIA,URINE FEW /HPF (0-FEW); SQUAMOUS EPITHELIAL CELL,UR MOD /LPF
[2017-10-30 21:43] LABS: AMPHETAMINE/METHAMPHETAMINE NEG (NEG); BARBITURATES NEG (NEG); BENZODIAZEPINES NEG (NEG); CANNABINOIDS NEG (NEG); COCAINE NEG (NEG); METHADONE NEG (NEG); OPIATES NEG (NEG); PHENCYCLIDINE NEG (NEG)
[2017-10-30 22:08] LABS: BASO # 0.1 x10^3/uL (0.0-0.2); BASO % 1 % (0-3); EOS # 0.2 x10^3/uL (0.0-0.7); EOS % 2 % (0-3); HEMOGLOBIN 13.2 g/dL (12.0-15.5); LYMPH # 1.1 x10^3/uL (1.0-4.8); LYMPH % 14 % (24-48); MEAN CORPUSCULAR HEMOGLOBIN 30 pg (25-35); MEAN CORPUSCULAR HGB CONC 33 g/dL (31-37); MEAN CORPUSCULAR VOLUME 91 fL (79-100); MONO # 0.7 x10^3/uL (0.0-1.1); MONO % 9 % (0-9); NEUT # 5.7 x10^3uL (1.8-7.7); NEUT % 74 % (31-73); PLATELET COUNT 250 x10^3/uL (140-400); RED BLOOD COUNT 4.38 x10^6/uL (3.50-5.40); RED CELL DISTRIBUTION WIDTH 12.9 % (11.5-14.5); WHITE BLOOD COUNT 7.7 x10^3/uL (4.0-11.0)
--- NOTE | 2017-10-30 22:11 | EKG ---
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
--- NOTE | 2017-10-30 22:18 | RAD ---
EXAM: CT Head without IV contrast CLINICAL HISTORY: Mental status changes, confusion COMPARISON: None. TECHNIQUE: Routine CT of the head without contrast. Soft tissues and bone windows were reviewed. PQRS compliance statement - One or more of the following individualized dose reduction techniques were utilized for this study: 1. Automated exposure control 2. Adjustment of the mA and/or kV according to patient size 3. Use of iterative reconstruction technique FINDINGS: There is no evidence of hemorrhage, mass or extra-axial fluid collection. Tony-white differentiation is maintained with no evidence of edema. There is no mass effect or shift of the intracranial structures. The ventricles, basilar cisterns and cortical sulci are normal in size and configuration for the patients stated age. The cerebellum and brainstem are unremarkable. The calvarium demonstrates no evidence of fracture or focal lesion. There is normal aeration of the visualized paranasal sinuses and mastoid air cells. The visualized portions of the orbits are normal. IMPRESSION: No evidence of acute intracranial process. Electronically signed by: Terence Celis MD (10/30/2017 10:15 PM) [facility]
[2017-10-30 22:23] LABS: ALBUMIN 3.5 g/dL (3.4-5.0); CALCIUM 9.1 mg/dL (8.5-10.1); CREATININE 0.5 mg/dL (0.6-1.0); DIRECT BILIRUBIN 0.1 mg/dL (0.0-0.2); GFR 126.3; MAGNESIUM 1.9 mg/dL (1.8-2.4); POTASSIUM 4.3 mmol/L (3.5-5.1); TOTAL BILIRUBIN 0.2 mg/dL (0.2-1.0); TOTAL PROTEIN 6.6 g/dL (6.4-8.2)
[2017-10-30] MEDS ORDERED: IPRATRPIUM/ALBUTEROL 0.5/2.5MG 3 ML NEBU. NEB ONE (23:30)
[2017-10-30] MEDS ORDERED: methylPREDNISolone SOD SUCC PF 125 MG/2 ML VIAL. IV ONE (23:30)
[2017-10-30] MEDS ORDERED: ONDANSETRON PF 4 MG/2 ML VIAL. IV PRN (23:30)
[2017-10-30] MEDS ORDERED: VANCOMYCIN 1 GM in IV NORMAL SALINE 250ML 250 ML IV ONE (23:30)
[2017-10-30 23:38] LABS: BGAS PH 7.19 (7.35-7.45)
[2017-10-30] MEDS ORDERED: VANCOMYCIN 1 GM VIAL. ONE (23:38)
[2017-10-30] MEDS ORDERED: IV NORMAL SALINE 250ML 250 ML ONE (23:38)
[2017-10-31] VITALS (15 sets, daily range): BP systolic 108–188; BP diastolic 59–93
[2017-10-31] MEDS: VANCOMYCIN PER PHARMACY MC PRN (02:24)
[2017-10-31 03:01] LABS: BGAS PH 7.37 (7.35-7.45)
--- NOTE | 2017-10-31 03:42 | RAD ---
Indication:Dyspnea, cough, congestion TECHNIQUE:Portable AP chest X-ray COMPARISON:06/29/2017 FINDINGS: Patient is mildly rotated to the right side. Heart is normal in size. Lungs are hyperinflated with flattening of diaphragms. No pneumothorax or pleural effusion. There is diffuse prominence of interstitium noted. Visualized bony thorax within normal limits. IMPRESSION: Findings of COPD with superimposed atypical/viral pneumonia not ruled out. Electronically signed by: Kayode Lozano DO (10/31/2017 3:39 AM) [facility]
[2017-10-31] MEDS: IPRATRPIUM/ALBUTEROL 0.5/2.5MG 3 ML NEBU. NEB SCH ×4 (05:21→20:28)
[2017-10-31 05:27] LABS: BGAS PH 7.35 (7.35-7.45)
[2017-10-31 06:53] LABS: BASO % 1 % (0-3); EOS % 0 % (0-3); HEMATOCRIT 38.3 % (36.0-47.0); HEMOGLOBIN 12.7 g/dL (12.0-15.5); LYMPH # 0.3 x10^3/uL (1.0-4.8); LYMPH % 7 % (24-48); MEAN CORPUSCULAR HEMOGLOBIN 30 pg (25-35); MEAN CORPUSCULAR HGB CONC 33 g/dL (31-37); MEAN CORPUSCULAR VOLUME 91 fL (79-100); MONO % 1 % (0-9); NEUT # 3.8 x10^3uL (1.8-7.7); NEUT % 91 % (31-73); PLATELET COUNT 246 x10^3/uL (140-400); RED BLOOD COUNT 4.22 x10^6/uL (3.50-5.40); RED CELL DISTRIBUTION WIDTH 12.9 % (11.5-14.5); WHITE BLOOD COUNT 4.2 x10^3/uL (4.0-11.0)
[2017-10-31 06:59] LABS: GFR 163.4
[2017-10-31 07:33] LABS: CALCIUM 9.2 mg/dL (8.5-10.1); CREATININE 0.4 mg/dL (0.6-1.0); POTASSIUM 4.9 mmol/L (3.5-5.1)
[2017-10-31] MEDS: LACTOBACILLUS RHAMNOSUS GG 1 CAPSULE. PO SCH ×2 (08:29→21:00)
[2017-10-31] MEDS: methylPREDNISolone SOD SUCC PF 125 MG/2 ML VIAL. IV SCH (08:29)
--- NOTE | 2017-10-31 10:30 | HP ---
ADMIT DATE: 10/31/2017 HISTORY OF PRESENT ILLNESS: The patient is a 57-year-old female patient, who was brought to the Emergency Room with altered mental status, unresponsive, very confused. She apparently did not go out to smoke and was hallucinating according to her family. She was evaluated in the Emergency Room and her initial blood gases showed a pH of 7.19, pCO2 of 128, pO2 of 161 and bicarbonate was 49. She was started on BiPAP machine, started on IV steroids, inhalers, and was admitted to the ICU for further evaluation and treatment. PAST MEDICAL HISTORY: Significant for chronic obstructive pulmonary disease, chronic hypercapnic hypoxic respiratory failure, pulmonary hypertension, tobacco use disorder, questionable borderline personality disorder, and severe debility. PAST SURGICAL HISTORY: Unremarkable. ALLERGIES: She claims she has multiple allergies. She claims that she is allergic to SULFA, CEFACLOR, CIPROFLOXACIN, DOXYCYCLINE, ERYTHROMYCIN, IODINE, LISINOPRIL, METRONIDAZOLE, and TETRACYCLINE. MEDICATIONS: She is currently on amlodipine 5 mg once a day. FAMILY HISTORY: Unremarkable. SOCIAL HISTORY: She lives at home with her daughter. She continued to smoke. She apparently smokes a pack a day, does not drink alcohol or use any recreational drugs. REVIEW OF SYSTEMS: As per history of present illness. PHYSICAL EXAMINATION: GENERAL: On arrival to the Emergency Room. Apparently, she was oriented to her name only. Generally, she was very lethargic. There was no pallor, jaundice, cyanosis, or thyromegaly. No jugular venous distension. No lower limb edema. VITAL SIGNS: Her heart rate on arrival was 98, blood pressure was 130/80, temperature was 98.4, respiratory rate 24, and oxygen saturation was 97% on 4 liters of oxygen. HEAD, EYES, EARS, NOSE AND THROAT: Showed normocephalic, atraumatic. NECK: Supple. HEART: Showed distant first and second heart sounds. No gallop, rub or murmur. CHEST: Shows central trachea, equally reduced expansion, reduced air entry, vesicular breath sounds with scattered rhonchi. ABDOMEN: Scaphoid, soft, nontender. NEUROLOGIC: She was alert, oriented to self only, but generally lethargic. All her cranial nerves intact. EXTREMITIES: She moves extremities without difficulty. LABORATORY DATA: Showed that her white cell count was 7700, hemoglobin 13.2, hematocrit 40, MCV 91, and platelet count 250,000. Her prothrombin time was 9.9, INR of 1, aPTT was 29. Her D-dimer was 0.23 mg/dL. Her initial blood gases showed a pH of 7.19, pCO2 of 128, pO2 of 161, bicarbonate 49. Her chemistry showed a serum sodium 134, potassium 4.3, chloride 91, bicarbonate 48, anion gap of 5, BUN 14, creatinine 0.5, estimated GFR was 126 mL per minute. Her glucose 147, calcium was 9.1, magnesium was 1.9. Total bilirubin, AST, ALT, alkaline phosphatase were normal. Her beta natriuretic peptide was 492. Total protein 6.6, albumin was 3.5 and lipase was 107. Her urinalysis showed the urine was yellow, hazy with a pH of 6, specific gravity of 1.030, small amount of protein, negative for glucose, trace of protein, trace of blood, negative for nitrite and leukocyte esterase, occasional rbc's, 1-4 wbc's and very few bacteria. Her toxic screen was essentially negative. Her CT scan of the head showed there is no evidence of hemorrhage, mass, or extraaxial fluid collection. The zambrano-white differentiation is maintained with no evidence of edema. There is no mass effect or shift of the intracranial structures. The ventricles, basilar cisterns, and cortical sulci are normal in size and configuration for the patient's stated age. The cerebellum and brainstem are unremarkable. The calvarium demonstrates no evidence of fracture or focal lesion. There is normal aeration of the visualized paranasal sinuses and mastoid air cells. The visualized portion of the orbits are normal. Her chest x-ray showed the patient is mildly rotated to the right and the heart size is normal. The lungs are hyperinflated with flattening of the diaphragms, no pneumothorax, no pleural effusion. There is diffuse prominence of the interstitium noted. Visualized bony structures. Bony thorax was within normal limits. Finding of COPD with superimposed atypical/viral pneumonia not ruled out. IMPRESSION: The patient was admitted with; 1. [id number] hypoxic hypercapnic respiratory failure. 2. Chronic obstructive pulmonary disease. 3. Right lower extremity cellulitis. 4. Debility. PLAN: To continue with steroids and inhalers. Continue with BiPAP machine, continue with IV vancomycin. Unfortunately, she is allergic to numerous antibiotics that difficult to find something to cover her atypical organisms or gram-negative bacteria except perhaps meropenem. OSMAR MARS MD DR: RICCO/gigi JOB#: [id number] / [id number]
--- NOTE | 2017-10-31 10:59 | PN ---
DATE: 10/31/2017 SUBJECTIVE: The patient is resting, slightly propped up in bed, in no apparent distress. She is very noncompliant with her BiPAP machine, does not keep the mask for a long time. She did have a repeat blood gas last night that showed her pH was 7.35, pCO2 of 82, pO2 of 71, bicarbonate 46. She was admitted to the ICU, continued on BiPAP with an FiO2 of 35%, maintaining her oxygen saturation at 98%. PHYSICAL EXAMINATION: GENERAL: When I saw her this morning, she looked well, pale, cachectic, but no jaundice, cyanosis, or thyromegaly. No jugular venous distension. No limb edema. VITAL SIGNS: Her heart rate was 98, blood pressure was 128/93, temperature 97.8, respiratory rate was 26 and oxygen saturation was 97% on BiPAP machine with an FiO2 of 35%. HEAD, EYES, EARS, NOSE AND THROAT: Showed normocephalic, atraumatic. NECK: Supple. HEART: Showed distant first and second heart sounds with no gallop, rub or murmur. CHEST: Shows central trachea, equally reduced expansion, reduced air entry, vesicular breath sounds. I could not appreciate any crepitation or rhonchi. ABDOMEN: Distended, soft, nontender. No guarding or rigidity. No organomegaly. Hernial orifice intact. Bowel sounds normal. NEUROLOGIC: She is awake, alert, responding appropriately. Cranial nerves intact. She moves extremities without difficulty. She does have right lower extremity cellulitis with marked erythema and warm to touch. Her intake over the last 24 hours was 575, output was 150. LABORATORY DATA: Her lab work this morning showed white cell count of 4200, hemoglobin 12.7, hematocrit 38, MCV 91, and platelet count 146,000. Her chemistry showed serum sodium 132, potassium 4.9, chloride 92, bicarbonate 51, anion gap of 11, BUN 14, creatinine was 0.4, estimated GFR was 115 mL per minute and calcium was 9.2. ASSESSMENT: 1. Acute on chronic hypoxic hypercapnic respiratory failure. 2. Chronic obstructive pulmonary disease. 3. Debility. 4. Hypertension. 5. Right lower extremity cellulitis. Her chest x-ray was interpreted by radiologist as possibly showing viral pneumonia or atypical pneumonia. Unfortunately, the patient is allergic to all the medications that are used for atypical organisms including doxycycline, macrolide and quinolone. PLAN: My plan is to continue with the IV steroids. Continue with the IV vancomycin. We will just ask the pharmacy to adjust the dose. Continue with bronchodilator. Continue with BiPAP machine. We will repeat her blood gases later today and decide on further management accordingly. OSMAR MARS MD DR: RICCO/gigi JOB#: [id number] / [id number]
[2017-10-31 11:16] LABS: BGAS PH 7.38 (7.35-7.45)
[2017-10-31] MEDS: VANCOMYCIN 750 MG in IV NORMAL SALINE 250ML 250 ML IV SCH ×2 (12:48→23:04)
[2017-10-31 19:20] LABS: BGAS PH 7.37 (7.35-7.45)
[2017-10-31] MEDS: LORazepam 2 MG/ML VIAL IV PRN (23:03)
[2017-11-01] VITALS (13 sets, daily range): BP systolic 151–175; BP diastolic 31–96
[2017-11-01 06:25] LABS: HEMATOCRIT 37.5 % (36.0-47.0); HEMOGLOBIN 12.2 g/dL (12.0-15.5); RED BLOOD COUNT 4.08 x10^6/uL (3.50-5.40); WHITE BLOOD COUNT 9.2 x10^3/uL (4.0-11.0)
[2017-11-01] MEDS: IPRATRPIUM/ALBUTEROL 0.5/2.5MG 3 ML NEBU. NEB SCH (06:25)
[2017-11-01 06:34] LABS: ALBUMIN 2.9 g/dL (3.4-5.0); ALBUMIN/GLOBULIN RATIO 0.9 (1.0-1.7); CALCIUM 9.3 mg/dL (8.5-10.1); CREATININE 0.5 mg/dL (0.6-1.0); GFR 126.3; POTASSIUM 4.3 mmol/L (3.5-5.1); TOTAL BILIRUBIN 0.2 mg/dL (0.2-1.0)
[2017-11-01 06:43] LABS: BGAS PH 7.4 (7.35-7.45)
[2017-11-01] MEDS: LACTOBACILLUS RHAMNOSUS GG 1 CAPSULE. PO SCH ×2 (09:03→21:58)
[2017-11-01] MEDS: methylPREDNISolone SOD SUCC PF 125 MG/2 ML VIAL. IV SCH (09:03)
[2017-11-01] MEDS: LORazepam 2 MG/ML VIAL IV PRN ×2 (09:05→22:00)
[2017-11-01 11:40] LABS: VANC TR 5.3 mcg/mL (10.0-20.0)
[2017-11-01] MEDS: VANCOMYCIN 750 MG in IV NORMAL SALINE 250ML 250 ML IV SCH ×2 (12:12→21:58)
[2017-11-01] MEDS: VANCOMYCIN PER PHARMACY MC PRN (12:23)
[2017-11-01] MEDS ORDERED: IPRATRPIUM/ALBUTEROL 0.5/2.5MG 3 ML NEBU. ONE (15:08)
[2017-11-01 17:09] LABS: BGAS PH 7.37 (7.35-7.45)
--- NOTE | 2017-11-01 17:50 | PDOC ---
Exam Note: Art Note: Please also refer to the separate dictated note~for this date of service dictated separately.~Patient seen individually. Discussed the patient with Nursing staff reviewed the chart.~Reviewed interim history and current functioning. Reviewed vital signs,~Labs/ Radiology~and current medications noted below. Continue current treatment with the changes noted in the dictated addendum note late entry for 10/31/17 Assessment: Vital Signs: Vital Signs Date Time Temp Pulse Resp B/P (MAP) Pulse Ox O2 Delivery O2 Flow Rate FiO2 11/01/17 16:00 Bi-pap 11/01/17 16:00 105 30 167/86 (113) 97 4.0 11/01/17 06:42 97.9 I&O Intake and Output 11/01/17 07:00 Intake Total 2230 ml Output Total 650 ml Balance 1580 ml Intake Oral 2230 ml Output Urine Total 650 ml Labs: Laboratory Tests Test 10/31/17 19:10 11/01/17 05:38 11/01/17 06:20 11/01/17 11:15 Blood pH 7.37 (7.35-7.45) 7.40 (7.35-7.45) Blood Gas PCO2 77 mmHg (35-45) *H 78 mmHg (35-45) *H Blood Gas PO2 72 mmHg (80-100) L 93 mmHg (80-100) Blood Gas HCO3 45 mmol/L (22-26) H 48 mmol/L (22-26) H Arterial Bld O2 Saturation (Calc) 93 % (92-99) 97 % (92-99) FiO2 35 % 35 % White Blood Count 9.2 x10^3/uL (4.0-11.0) # Red Blood Count 4.08 x10^6/uL (3.50-5.40) Hemoglobin 12.2 g/dL (12.0-15.5) Hematocrit 37.5 % (36.0-47.0) Mean Corpuscular Volume 92 fL (79-100) Mean Corpuscular Hemoglobin 30 pg (25-35) Mean Corpuscular Hemoglobin Concent 33 g/dL (31-37) Red Cell Distribution Width 13.0 % (11.5-14.5) Platelet Count 251 x10^3/uL (140-400) Sodium Level 133 mmol/L (136-145) L Potassium Level 4.3 mmol/L (3.5-5.1) Chloride Level 93 mmol/L (98-107) L Carbon Dioxide Level 47 mmol/L (21-32) H Anion Gap -7 (6-14) L Blood Urea Nitrogen 19 mg/dL (7-20) Creatinine 0.5 mg/dL (0.6-1.0) L Estimated GFR (Cockcroft-Gault) 126.3 BUN/Creatinine Ratio 38 (6-20) H Glucose Level 83 mg/dL (70-99) Calcium Level 9.3 mg/dL (8.5-10.1) Total Bilirubin 0.2 mg/dL (0.2-1.0) Aspartate Amino Transferase (AST) 11 U/L (15-37) L Alanine Aminotransferase (ALT) 21 U/L (14-59) Alkaline Phosphatase 62 U/L (46-116) Total Protein 6.0 g/dL (6.4-8.2) L Albumin 2.9 g/dL (3.4-5.0) L Albumin/Globulin Ratio 0.9 (1.0-1.7) L Vancomycin Level Trough 5.3 mcg/mL (10.0-20.0) L Vancomycin Last Dose Date 11/01/17 Vancomycin Last Dose Time 0000 Test 11/01/17 16:50 Blood pH 7.37 (7.35-7.45) Blood Gas PCO2 66 mmHg (35-45) *H Blood Gas PO2 63 mmHg (80-100) L Blood Gas HCO3 38 mmol/L (22-26) H Arterial Bld O2 Saturation (Calc) 91 % (92-99) L FiO2 32 % Current Medications: Meds: Current Medications Lactated Ringer's 1,000 ml @ 1,000 mls/hr Q1H IV Last administered on at 23:55; Start 10/30/17 at 21:30; Stop 10/30/17 at 22:29; Status DC Methylprednisolone Sodium Succinate (SOLU-Medrol 125MG VIAL) 125 mg 1X ONCE IV Last administered on 10/30/17at 23:57; Start 10/30/17 at 23:30; Stop 10/31/17 at 00:10; Status DC Vancomycin HCl 1 gm/Sodium Chloride 250 ml @ 250 mls/hr 1X ONCE IV Last administered on 10/30/17at 23:57; Start 10/30/17 at 23:30; Stop 10/31/17 at 00:29 ; Status DC Albuterol/ Ipratropium (Duoneb) 3 ml 1X ONCE NEB Last administered on at 23:31; Start 10/30/17 at 23:30; Stop 10/31/17 at 00:10; Status DC Ondansetron HCl (Zofran) 4 mg PRN Q4HRS PRN IV NAUSEA/VOMITING Last administered on 10/30/17at 23:31; Start 10/30/17 at 23:30; Stop 10/31/17 at 23:29 ; Status DC Albuterol/ Ipratropium (Duoneb) 3 ml RTQID NEB Last administered on 11/01/17at 06:25; Start 10/31/17 at 08:00; Stop 11/01/17 at 08:00; Status DC Vancomycin HCl (Vanco Per Pharmacy) 1 each PRN DAILY PRN MC SEE COMMENTS Last administered on 11/01/17at 12:23; Start 10/30/17 at 23:30 Methylprednisolone Sodium Succinate (SOLU-Medrol 125MG VIAL) 125 mg DAILY IV Last administered on 11/01/17at 09:03; Start 10/31/17 at 09:00 Sodium Chloride 250 ml @ As Directed STK-MED ONCE .ROUTE ; Start 10/30/17 at 23 :38; Stop 10/30/17 at 23:39; Status DC Vancomycin HCl (Vancomycin) 1 gm STK-MED ONCE .ROUTE ; Start 10/30/17 at 23:38; Stop 10/30/17 at 23:39; Status DC Lorazepam (Ativan) 0.5 mg PRN Q4HRS PRN IV ANXIETY / AGITATION Last administered on 11/01/17at 09:05; Start 10/31/17 at 01:45 Vancomycin HCl 750 mg/Sodium Chloride 250 ml @ 250 mls/hr Q12H IV Last administered on 11/01/17at 12:12; Start 10/31/17 at 12:00; Stop 11/01/17 at 15:00 ; Status DC Vancomycin HCl (Vancomycin Trough Level) 1 each 1X ONCE MC Last administered on 11/01/17at 11:30; Start 11/01/17 at 11:30; Stop 11/01/17 at 11:31; Status DC Lactobacillus Rhamnosus (Culturelle) 1 cap BID PO Last administered on at 09:03; Start 10/31/17 at 09:00 Vancomycin HCl 750 mg/Sodium Chloride 250 ml @ 250 mls/hr Q8H IV ; Start at 20:00 Vancomycin HCl (Vancomycin Trough Level) 1 each 1X ONCE MC ; Start 11/02/17 at 11:30; Stop 11/02/17 at 11:31 Albuterol/ Ipratropium (Duoneb) 3 ml STK-MED ONCE .ROUTE Last administered on at 15:25; Start 11/01/17 at 15:08; Stop 11/01/17 at 15:09; Status DC Active Scripts Active Amlodipine Besylate 5 Mg Tablet 5 Mg PO DAILY I have reviewed the current psychotropics carefully including drug interactions. Risk benefit ratio favors no change other than as noted in my dictated progress note. Diagnosis: Problems: (1) Personality disorder in adult (2) Major depressive disorder, recurrent episode (3) Impulse control disorder (4) Anxiety disorder (5) COPD (chronic obstructive pulmonary disease) with acute bronchitis CHUY NUNEZ MD Nov 01, 2017 17:50
--- NOTE | 2017-11-01 19:12 | PDOC ---
Exam Note: Art Note: Please also refer to the separate dictated note~for this date of service dictated separately.~Patient seen individually. Discussed the patient with Nursing staff reviewed the chart.~Reviewed interim history and current functioning. Reviewed vital signs,~Labs/ Radiology~and current medications noted below. Continue current treatment with the changes noted in the dictated addendum note Assessment: Vital Signs: Vital Signs Date Time Temp Pulse Resp B/P (MAP) Pulse Ox O2 Delivery O2 Flow Rate FiO2 11/01/17 18:11 106 169/86 (113) 96 Nasal Cannula 4.0 11/01/17 16:00 30 11/01/17 06:42 97.9 I&O Intake and Output 11/01/17 07:00 Intake Total 2230 ml Output Total 650 ml Balance 1580 ml Intake Oral 2230 ml Output Urine Total 650 ml Labs: Laboratory Tests Test 11/01/17 05:38 11/01/17 06:20 11/01/17 11:15 11/01/17 16:50 White Blood Count 9.2 x10^3/uL (4.0-11.0) # Red Blood Count 4.08 x10^6/uL (3.50-5.40) Hemoglobin 12.2 g/dL (12.0-15.5) Hematocrit 37.5 % (36.0-47.0) Mean Corpuscular Volume 92 fL (79-100) Mean Corpuscular Hemoglobin 30 pg (25-35) Mean Corpuscular Hemoglobin Concent 33 g/dL (31-37) Red Cell Distribution Width 13.0 % (11.5-14.5) Platelet Count 251 x10^3/uL (140-400) Sodium Level 133 mmol/L (136-145) L Potassium Level 4.3 mmol/L (3.5-5.1) Chloride Level 93 mmol/L (98-107) L Carbon Dioxide Level 47 mmol/L (21-32) H Anion Gap -7 (6-14) L Blood Urea Nitrogen 19 mg/dL (7-20) Creatinine 0.5 mg/dL (0.6-1.0) L Estimated GFR (Cockcroft-Gault) 126.3 BUN/Creatinine Ratio 38 (6-20) H Glucose Level 83 mg/dL (70-99) Calcium Level 9.3 mg/dL (8.5-10.1) Total Bilirubin 0.2 mg/dL (0.2-1.0) Aspartate Amino Transferase (AST) 11 U/L (15-37) L Alanine Aminotransferase (ALT) 21 U/L (14-59) Alkaline Phosphatase 62 U/L (46-116) Total Protein 6.0 g/dL (6.4-8.2) L Albumin 2.9 g/dL (3.4-5.0) L Albumin/Globulin Ratio 0.9 (1.0-1.7) L Blood pH 7.40 (7.35-7.45) 7.37 (7.35-7.45) Blood Gas PCO2 78 mmHg (35-45) *H 66 mmHg (35-45) *H Blood Gas PO2 93 mmHg (80-100) 63 mmHg (80-100) L Blood Gas HCO3 48 mmol/L (22-26) H 38 mmol/L (22-26) H Arterial Bld O2 Saturation (Calc) 97 % (92-99) 91 % (92-99) L FiO2 35 % 32 % Vancomycin Level Trough 5.3 mcg/mL (10.0-20.0) L Vancomycin Last Dose Date 11/01/17 Vancomycin Last Dose Time 0000 Current Medications: Meds: Current Medications Lactated Ringer's 1,000 ml @ 1,000 mls/hr Q1H IV Last administered on at 23:55; Start 10/30/17 at 21:30; Stop 10/30/17 at 22:29; Status DC Methylprednisolone Sodium Succinate (SOLU-Medrol 125MG VIAL) 125 mg 1X ONCE IV Last administered on 10/30/17at 23:57; Start 10/30/17 at 23:30; Stop 10/31/17 at 00:10; Status DC Vancomycin HCl 1 gm/Sodium Chloride 250 ml @ 250 mls/hr 1X ONCE IV Last administered on 10/30/17at 23:57; Start 10/30/17 at 23:30; Stop 10/31/17 at 00:29 ; Status DC Albuterol/ Ipratropium (Duoneb) 3 ml 1X ONCE NEB Last administered on at 23:31; Start 10/30/17 at 23:30; Stop 10/31/17 at 00:10; Status DC Ondansetron HCl (Zofran) 4 mg PRN Q4HRS PRN IV NAUSEA/VOMITING Last administered on 10/30/17at 23:31; Start 10/30/17 at 23:30; Stop 10/31/17 at 23:29 ; Status DC Albuterol/ Ipratropium (Duoneb) 3 ml RTQID NEB Last administered on 11/01/17at 06:25; Start 10/31/17 at 08:00; Stop 11/01/17 at 08:00; Status DC Vancomycin HCl (Vanco Per Pharmacy) 1 each PRN DAILY PRN MC SEE COMMENTS Last administered on 11/01/17at 12:23; Start 10/30/17 at 23:30 Methylprednisolone Sodium Succinate (SOLU-Medrol 125MG VIAL) 125 mg DAILY IV Last administered on 11/01/17at 09:03; Start 10/31/17 at 09:00 Sodium Chloride 250 ml @ As Directed STK-MED ONCE .ROUTE ; Start 10/30/17 at 23 :38; Stop 10/30/17 at 23:39; Status DC Vancomycin HCl (Vancomycin) 1 gm STK-MED ONCE .ROUTE ; Start 10/30/17 at 23:38; Stop 10/30/17 at 23:39; Status DC Lorazepam (Ativan) 0.5 mg PRN Q4HRS PRN IV ANXIETY / AGITATION Last administered on 11/01/17at 09:05; Start 10/31/17 at 01:45 Vancomycin HCl 750 mg/Sodium Chloride 250 ml @ 250 mls/hr Q12H IV Last administered on 11/01/17at 12:12; Start 10/31/17 at 12:00; Stop 11/01/17 at 15:00 ; Status DC Vancomycin HCl (Vancomycin Trough Level) 1 each 1X ONCE MC Last administered on 11/01/17at 11:30; Start 11/01/17 at 11:30; Stop 11/01/17 at 11:31; Status DC Lactobacillus Rhamnosus (Culturelle) 1 cap BID PO Last administered on at 09:03; Start 10/31/17 at 09:00 Vancomycin HCl 750 mg/Sodium Chloride 250 ml @ 250 mls/hr Q8H IV ; Start at 20:00 Vancomycin HCl (Vancomycin Trough Level) 1 each 1X ONCE MC ; Start 11/02/17 at 11:30; Stop 11/02/17 at 11:31 Albuterol/ Ipratropium (Duoneb) 3 ml STK-MED ONCE .ROUTE Last administered on at 15:25; Start 11/01/17 at 15:08; Stop 11/01/17 at 15:09; Status DC Active Scripts Active Amlodipine Besylate 5 Mg Tablet 5 Mg PO DAILY I have reviewed the current psychotropics carefully including drug interactions. Risk benefit ratio favors no change other than as noted in my dictated progress note. Diagnosis: Problems: (1) Personality disorder in adult (2) Major depressive disorder, recurrent episode (3) Impulse control disorder (4) Anxiety disorder (5) Acute on chronic respiratory failure with hypoxia and hypercapnia CHUY NUNEZ MD Nov 01, 2017 19:12
--- NOTE | 2017-11-01 23:43 | CONS ---
DATE OF CONSULTATION: 10/31/2017 This note covers elements not covered in my initial note of 10/31/2017. IDENTIFYING DATA: The patient is a 57-year-old female seen in ICU bed 3, [facility] for a psychiatric consult requested by Dr. Thompson on account of the patient refusing her treatments and alleging that she is allergic to everything that is being prescribed to her. She is in significant respiratory failure and has a prior diagnosis of personality disorder, anxiety disorder and I have been asked to consult for any psychiatric recommendations. The patient seen individually, discussed with nursing staff, reviewed the chart. CHIEF COMPLAINT: "I would not take any medications I am allergic to." HISTORY OF PRESENT ILLNESS: The patient was admitted via the ER with altered mental status. She was on room unresponsive, very confused, refusing treatment at home. She was hallucinating at home, was trying to smoke despite her severe COPD. She was started on BiPAP machine, IV steroids, inhalers, sent to the ICU where she continues to refuse treatment repeatedly. PAST PSYCHIATRIC HISTORY: Positive for anxiety, depression, personality disorder. PAST MEDICAL HISTORY: COPD, chronic hypercapnic hypoxic respiratory failure, pulmonary hypertension, tobacco use disorder, personality disorder. PAST SURGICAL HISTORY: Unremarkable. ALLERGIES: SULFA, CEFACLOR, CIPRO, DOXYCYCLINE, ERYTHROMYCIN, IODINE, LISINOPRIL, METRONIDAZOLE, TETRACYCLINE. CURRENT PSYCHOTROPICS: Reviewed. FAMILY HISTORY: Unremarkable. SOCIAL HISTORY: Lives at home with her daughter. She continues to smoke despite her COPD. No alcohol or drug abuse history. MENTAL STATUS EXAMINATION: The patient was seen individually. She said she remembered me from the prior visit. She is quite adamant on her drug allergies, refusing treatments. Speech coherent, rapid at times. Attention span short. Mood is somewhat dysphoric. She minimizes that she is anxious, distractible. No suicidal or homicidal ideation. LABORATORY DATA: Reviewed. IMPRESSION: Personality disorder, unspecified; history of major depressive disorder; anxiety disorder, unspecified. Rest as above. PLAN: The patient has been started on IV Ativan per Dr. Thompson, and for now, I would recommend that be continued with no other psychiatric interventions and we will reassess in a day or so. Discussed this again with the nursing staff. Dr. Thompson, thank you for the opportunity to participate in your patient's care. We will follow with you. MAN Rosy NUNEZ MD DR: Rigo JOB#: [id number] / [id number]
[2017-11-02] VITALS (7 sets, daily range): BP systolic 154–192; BP diastolic 84–103
--- NOTE | 2017-11-02 00:01 | PDOC ---
SUBJECTIVE: Patient evaluated 11/01 I find patient sitting up on side of bed family at bedside. Patient has continued to refuse medications which aren't the same shape or color as her home meds fearing she'll be allergic. RN reports patient very paranoid staff will do her wrong. Her PCO2 has significantly improved down to 78, ABG O2sat 97 %. Patient is crying, complaining about bipap mask. I agreed to her using NC and recheck ABG. Patient and family agree the RLE cellulitis has improved significantly as well. Patient says it no longer hurts, family says the redness and warmth have significantly improved. She's otherwise remained afebrile. OBJECTIVE: Problems: Problems Medical Problems: (1) Cellulitis Status: Acute (2) COPD (chronic obstructive pulmonary disease) with acute bronchitis Status: Acute Vital Signs: Vital Signs Date Time Temp Pulse Resp B/P (MAP) Pulse Ox O2 Delivery O2 Flow Rate FiO2 11/01/17 19:00 110 28 153/79 (103) 95 Nasal Cannula 4.0 11/01/17 06:42 97.9 I & O Intake and Output 11/02/17 07:00 Intake Total 1280 ml Balance 1280 ml Intake Oral 1280 ml # Voids 2 # Bowel Movements 1 Labs: Laboratory Tests Test 10/31/17 01:35 10/31/17 02:45 10/31/17 02:55 10/31/17 05:20 Nasal Screen MRSA (PCR) Negative (Negative) Blood Gas pH 7.37 (7.35-7.45) 7.35 (7.35-7.45) Blood Gas PCO2 81 mmHg (35-45) 82 mmHg (35-45) Blood Gas PO2 72 mmHg (80-100) 71 mmHg (80-100) Blood Gas HCO3 46 mmol/L (22-26) 46 mmol/L (22-26) Arterial Bld O2 Saturation (Calc) 93 % (92-99) 93 % (92-99) FiO2 35 % 35 % Bedside Arterial pH 7.36 (7.35-7.45) 7.34 (7.35-7.45) Arterial Blood pH (Temp corrected) 7.36 7.35 Bedside Arterial pCO2 82 mmHg (35-45) 84 mmHg (35-45) Arterial Blood pCO2 (Temp correct) 81 mmHg 82 mmHg Bedside Arterial pO2 74 mmHg (75-100) 75 mmHg (75-100) Arterial Blood pO2 (Temp corrected) 72 mmHg 71 mmHg Arterial Blood HCO3 46 mmol/L (21-28) 46 mmol/L (21-28) Bedside Arterial Blood O2 Sat 93 % (95-99) 93 % (95-99) Bedside FiO2 35.0 35.0 Test 10/31/17 06:22 10/31/17 11:07 10/31/17 19:10 11/01/17 05:38 White Blood Count 4.2 x10^3/uL (4.0-11.0) 9.2 x10^3/uL (4.0-11.0) Red Blood Count 4.22 x10^6/uL (3.50-5.40) 4.08 x10^6/uL (3.50-5.40) Hemoglobin 12.7 g/dL (12.0-15.5) 12.2 g/dL (12.0-15.5) Hematocrit 38.3 % (36.0-47.0) 37.5 % (36.0-47.0) Mean Corpuscular Volume 91 fL (79-100) 92 fL (79-100) Mean Corpuscular Hemoglobin 30 pg (25-35) 30 pg (25-35) Mean Corpuscular Hemoglobin Concent 33 g/dL (31-37) 33 g/dL (31-37) Red Cell Distribution Width 12.9 % (11.5-14.5) 13.0 % (11.5-14.5) Platelet Count 246 x10^3/uL (140-400) 251 x10^3/uL (140-400) Neutrophils (%) (Auto) 91 % (31-73) Lymphocytes (%) (Auto) 7 % (24-48) Monocytes (%) (Auto) 1 % (0-9) Eosinophils (%) (Auto) 0 % (0-3) Basophils (%) (Auto) 1 % (0-3) Neutrophils # (Auto) 3.8 x10^3uL (1.8-7.7) Lymphocytes # (Auto) 0.3 x10^3/uL (1.0-4.8) Monocytes # (Auto) 0.0 x10^3/uL (0.0-1.1) Eosinophils # (Auto) 0.0 x10^3/uL (0.0-0.7) Basophils # (Auto) 0.0 x10^3/uL (0.0-0.2) Sodium Level 132 mmol/L (136-145) 133 mmol/L (136-145) Potassium Level 4.9 mmol/L (3.5-5.1) 4.3 mmol/L (3.5-5.1) Chloride Level 92 mmol/L (98-107) 93 mmol/L (98-107) Carbon Dioxide Level 51 mmol/L (21-32) 47 mmol/L (21-32) Anion Gap -11 (6-14) -7 (6-14) Blood Urea Nitrogen 14 mg/dL (7-20) 19 mg/dL (7-20) Creatinine 0.4 mg/dL (0.6-1.0) 0.5 mg/dL (0.6-1.0) Estimated GFR (Cockcroft-Gault) 163.4 126.3 Glucose Level 115 mg/dL (70-99) 83 mg/dL (70-99) Calcium Level 9.2 mg/dL (8.5-10.1) 9.3 mg/dL (8.5-10.1) Blood Gas pH 7.38 (7.35-7.45) 7.37 (7.35-7.45) Blood Gas PCO2 77 mmHg (35-45) 77 mmHg (35-45) Blood Gas PO2 33 mmHg (80-100) 72 mmHg (80-100) Blood Gas HCO3 45 mmol/L (22-26) 45 mmol/L (22-26) Arterial Bld O2 Saturation (Calc) 60 % (92-99) 93 % (92-99) FiO2 35 % 35 % BUN/Creatinine Ratio 38 (6-20) Total Bilirubin 0.2 mg/dL (0.2-1.0) Aspartate Amino Transf (AST/SGOT) 11 U/L (15-37) Alanine Aminotransferase (ALT/SGPT) 21 U/L (14-59) Alkaline Phosphatase 62 U/L (46-116) Total Protein 6.0 g/dL (6.4-8.2) Albumin 2.9 g/dL (3.4-5.0) Albumin/Globulin Ratio 0.9 (1.0-1.7) Test 11/01/17 06:20 11/01/17 11:15 11/01/17 16:50 Blood Gas pH 7.40 (7.35-7.45) 7.37 (7.35-7.45) Blood Gas PCO2 78 mmHg (35-45) 66 mmHg (35-45) Blood Gas PO2 93 mmHg (80-100) 63 mmHg (80-100) Blood Gas HCO3 48 mmol/L (22-26) 38 mmol/L (22-26) Arterial Bld O2 Saturation (Calc) 97 % (92-99) 91 % (92-99) FiO2 35 % 32 % Vancomycin Level Trough 5.3 mcg/mL (10.0-20.0) Vancomycin Last Dose Date 11/01/17 Vancomycin Last Dose Time 0000 Physical Exam: Constitutional: thin, sitting up on side of bed bipap mask in place, tearful HENT: Normocephalic, atraumatic, bilateral external ears normal, oropharynx moist, no oral exudates, nose normal. Eyes: LUTHER, EOMI, conjunctiva normal, no discharge. Neck: Normal range of motion, no tenderness, supple, no stridor. Cardiovascular: S1 N,S2N. No murmurs. No rubs or clicks. Thorax and Lungs: diffuse wheezes with fair air movement Abdomen: Bowel sounds normal, soft, no tenderness. Skin: Warm, dry, in general Back: No tenderness, no CVA tenderness. Extremities: Intact distal pulses, right heel/ankle with erythema/induration no tenderness or warmth, no edema. Neurologic: Alert, normal motor function, normal sensory function, no focal deficits noted. Psychologic: paranoid, emotionally labile. ASSESSMENT: Acute on chronic hypercapneic respiratory failure RLE Cellulitis Questionable borderline personality disorder PLAN: Nasal cannula trial recheck ABG. Continue vancomycin and respiratory support. Dr oMrales evaluation pending. JENNIFER TURK DO Nov 02, 2017 00:01
[2017-11-02] MEDS: VANCOMYCIN 750 MG in IV NORMAL SALINE 250ML 250 ML IV SCH (03:44)
[2017-11-02 07:00] LABS: BASO # 0.1 x10^3/uL (0.0-0.2); BASO % 1 % (0-3); EOS # 0.1 x10^3/uL (0.0-0.7); EOS % 1 % (0-3); HEMOGLOBIN 12.5 g/dL (12.0-15.5); LYMPH % 16 % (24-48); MEAN CORPUSCULAR HEMOGLOBIN 30 pg (25-35); MEAN CORPUSCULAR HGB CONC 33 g/dL (31-37); MEAN CORPUSCULAR VOLUME 90 fL (79-100); MONO # 1.1 x10^3/uL (0.0-1.1); MONO % 9 % (0-9); NEUT # 8.8 x10^3uL (1.8-7.7); NEUT % 73 % (31-73); PLATELET COUNT 261 x10^3/uL (140-400); RED BLOOD COUNT 4.21 x10^6/uL (3.50-5.40); RED CELL DISTRIBUTION WIDTH 13.1 % (11.5-14.5); WHITE BLOOD COUNT 11.9 x10^3/uL (4.0-11.0)
[2017-11-02 07:08] LABS: ALBUMIN 2.8 g/dL (3.4-5.0); ALBUMIN/GLOBULIN RATIO 0.9 (1.0-1.7); CALCIUM 8.6 mg/dL (8.5-10.1); CREATININE 0.4 mg/dL (0.6-1.0); GFR 163.4; POTASSIUM 4.1 mmol/L (3.5-5.1); TOTAL BILIRUBIN 0.2 mg/dL (0.2-1.0); TOTAL PROTEIN 5.9 g/dL (6.4-8.2)
[2017-11-02] MEDS: LACTOBACILLUS RHAMNOSUS GG 1 CAPSULE. PO SCH ×2 (09:30→21:01)
[2017-11-02] MEDS: methylPREDNISolone SOD SUCC PF 125 MG/2 ML VIAL. IV SCH (09:30)
[2017-11-02 12:34] LABS: VANC TR 9.8 mcg/mL (10.0-20.0)
[2017-11-02 12:38] LABS: BGAS PH 7.33 (7.35-7.45)
[2017-11-02] MEDS: cloNIDine HCL 0.1 MG TABLET PO SCH ×2 (12:48→21:02)
[2017-11-02] MEDS: VANCOMYCIN 1 GM in IV NORMAL SALINE 250ML 250 ML IV SCH ×2 (13:16→21:01)
[2017-11-02] MEDS: VANCOMYCIN PER PHARMACY MC PRN (13:29)
--- NOTE | 2017-11-02 14:25 | PN ---
DATE: 11/01/2017 This late entry 11/01/2017 covers elements not covered in my initial note. SUBJECTIVE: I met with the patient in the evening ICU bed 3. She remains intermittently noncompliant with her treatments, but little more accepting of it. The Ativan has helped the anxiety. REVIEW OF SYSTEMS: Positive for shortness of breath. No CV, , GI system symptoms on review. MENTAL STATUS EXAM: The patient is reasonably oriented. Speech has some latency, coherent. She readily recognized me. Abstraction fair, computation impaired, language function intact. Mood and affect somewhat anxious, labile at times, paranoid at other times. LABORATORY DATA: Reviewed. IMPRESSION: Unchanged from initial note, major depressive disorder; anxiety disorder, unspecified; personality disorder, unspecified. PLAN: Continue the Ativan p.r.n. No further changes for now. MAN Rosy NUNEZ MD DR: LANG/gigi JOB#: [id number] / [id number]
--- NOTE | 2017-11-02 18:44 | PDOC ---
Exam Note: Art Note: Please also refer to the separate dictated note~for this date of service dictated separately.~Patient seen individually. Discussed the patient with Nursing staff reviewed the chart.~Reviewed interim history and current functioning. Reviewed vital signs,~Labs/ Radiology~and current medications noted below. Continue current treatment with the changes noted in the dictated addendum note Assessment: Vital Signs: Vital Signs Date Time Temp Pulse Resp B/P (MAP) Pulse Ox O2 Delivery O2 Flow Rate FiO2 11/02/17 18:00 111 20 154/91 (112) 95 Nasal Cannula 4.0 11/02/17 17:05 98.4 I&O Intake and Output 11/02/17 07:00 Intake Total 3130 ml Output Total 601 ml Balance 2529 ml Intake Oral 2380 ml IV Total 750 ml Output Urine Total 600 ml Urine/Stool Mix 1 ml # Voids 2 # Bowel Movements 1 Labs: Laboratory Tests Test 11/02/17 06:05 11/02/17 11:33 11/02/17 12:32 White Blood Count 11.9 x10^3/uL (4.0-11.0) H Red Blood Count 4.21 x10^6/uL (3.50-5.40) Hemoglobin 12.5 g/dL (12.0-15.5) Hematocrit 38.0 % (36.0-47.0) Mean Corpuscular Volume 90 fL (79-100) Mean Corpuscular Hemoglobin 30 pg (25-35) Mean Corpuscular Hemoglobin Concent 33 g/dL (31-37) Red Cell Distribution Width 13.1 % (11.5-14.5) Platelet Count 261 x10^3/uL (140-400) Neutrophils (%) (Auto) 73 % (31-73) Lymphocytes (%) (Auto) 16 % (24-48) L Monocytes (%) (Auto) 9 % (0-9) Eosinophils (%) (Auto) 1 % (0-3) Basophils (%) (Auto) 1 % (0-3) Neutrophils # (Auto) 8.8 x10^3uL (1.8-7.7) H Lymphocytes # (Auto) 2.0 x10^3/uL (1.0-4.8) Monocytes # (Auto) 1.1 x10^3/uL (0.0-1.1) Eosinophils # (Auto) 0.1 x10^3/uL (0.0-0.7) Basophils # (Auto) 0.1 x10^3/uL (0.0-0.2) Sodium Level 134 mmol/L (136-145) L Potassium Level 4.1 mmol/L (3.5-5.1) Chloride Level 94 mmol/L (98-107) L Carbon Dioxide Level 43 mmol/L (21-32) H Anion Gap -3 (6-14) L Blood Urea Nitrogen 9 mg/dL (7-20) Creatinine 0.4 mg/dL (0.6-1.0) L Estimated GFR (Cockcroft-Gault) 163.4 BUN/Creatinine Ratio 23 (6-20) H Glucose Level 73 mg/dL (70-99) Calcium Level 8.6 mg/dL (8.5-10.1) Total Bilirubin 0.2 mg/dL (0.2-1.0) Aspartate Amino Transferase (AST) 10 U/L (15-37) L Alanine Aminotransferase (ALT) 20 U/L (14-59) Alkaline Phosphatase 56 U/L (46-116) Total Protein 5.9 g/dL (6.4-8.2) L Albumin 2.8 g/dL (3.4-5.0) L Albumin/Globulin Ratio 0.9 (1.0-1.7) L Vancomycin Level Trough 9.8 mcg/mL (10.0-20.0) L Vancomycin Last Dose Date 11/02/17 Vancomycin Last Dose Time 0400 Blood pH 7.33 (7.35-7.45) L Blood Gas PCO2 83 mmHg (35-45) *H Blood Gas PO2 70 mmHg (80-100) L Blood Gas HCO3 44 mmol/L (22-26) H Arterial Bld O2 Saturation (Calc) 91 % (92-99) L FiO2 36 % Current Medications: Meds: Current Medications Lactated Ringer's 1,000 ml @ 1,000 mls/hr Q1H IV Last administered on at 23:55; Start 10/30/17 at 21:30; Stop 10/30/17 at 22:29; Status DC Methylprednisolone Sodium Succinate (SOLU-Medrol 125MG VIAL) 125 mg 1X ONCE IV Last administered on 10/30/17at 23:57; Start 10/30/17 at 23:30; Stop 10/31/17 at 00:10; Status DC Vancomycin HCl 1 gm/Sodium Chloride 250 ml @ 250 mls/hr 1X ONCE IV Last administered on 10/30/17at 23:57; Start 10/30/17 at 23:30; Stop 10/31/17 at 00:29 ; Status DC Albuterol/ Ipratropium (Duoneb) 3 ml 1X ONCE NEB Last administered on at 23:31; Start 10/30/17 at 23:30; Stop 10/31/17 at 00:10; Status DC Ondansetron HCl (Zofran) 4 mg PRN Q4HRS PRN IV NAUSEA/VOMITING Last administered on 10/30/17at 23:31; Start 10/30/17 at 23:30; Stop 10/31/17 at 23:29 ; Status DC Albuterol/ Ipratropium (Duoneb) 3 ml RTQID NEB Last administered on 11/01/17at 06:25; Start 10/31/17 at 08:00; Stop 11/01/17 at 08:00; Status DC Vancomycin HCl (Vanco Per Pharmacy) 1 each PRN DAILY PRN MC SEE COMMENTS Last administered on 11/02/17at 13:29; Start 10/30/17 at 23:30 Methylprednisolone Sodium Succinate (SOLU-Medrol 125MG VIAL) 125 mg DAILY IV Last administered on 11/02/17at 09:30; Start 10/31/17 at 09:00 Sodium Chloride 250 ml @ As Directed STK-MED ONCE .ROUTE ; Start 10/30/17 at 23 :38; Stop 10/30/17 at 23:39; Status DC Vancomycin HCl (Vancomycin) 1 gm STK-MED ONCE .ROUTE ; Start 10/30/17 at 23:38; Stop 10/30/17 at 23:39; Status DC Lorazepam (Ativan) 0.5 mg PRN Q4HRS PRN IV ANXIETY / AGITATION Last administered on 11/01/17at 22:00; Start 10/31/17 at 01:45 Vancomycin HCl 750 mg/Sodium Chloride 250 ml @ 250 mls/hr Q12H IV Last administered on 11/01/17at 12:12; Start 10/31/17 at 12:00; Stop 11/01/17 at 15:00 ; Status DC Vancomycin HCl (Vancomycin Trough Level) 1 each 1X ONCE MC Last administered on 11/01/17at 11:30; Start 11/01/17 at 11:30; Stop 11/01/17 at 11:31; Status DC Lactobacillus Rhamnosus (Culturelle) 1 cap BID PO Last administered on at 09:30; Start 10/31/17 at 09:00 Vancomycin HCl 750 mg/Sodium Chloride 250 ml @ 250 mls/hr Q8H IV Last administered on 11/02/17at 03:44; Start 11/01/17 at 20:00; Stop 11/02/17 at 12:49 ; Status DC Vancomycin HCl (Vancomycin Trough Level) 1 each 1X ONCE MC Last administered on 11/02/17at 11:30; Start 11/02/17 at 11:30; Stop 11/02/17 at 11:31; Status DC Albuterol/ Ipratropium (Duoneb) 3 ml STK-MED ONCE .ROUTE Last administered on at 15:25; Start 11/01/17 at 15:08; Stop 11/01/17 at 15:09; Status DC Clonidine HCl (Catapres) 0.1 mg Q8HRS PO Last administered on 11/02/17at 12:48; Start 11/02/17 at 14:00 Vancomycin HCl 1 gm/Sodium Chloride 250 ml @ 250 mls/hr Q8H IV Last administered on 11/02/17at 13:16; Start 11/02/17 at 13:00 Vancomycin HCl (Vancomycin Trough Level) 1 each 1X ONCE MC ; Start 11/03/17 at 12:30; Stop 11/03/17 at 12:31 Amlodipine Besylate (Norvasc) 5 mg DAILY PO ; Start 11/03/17 at 09:00 Active Scripts Active Amlodipine Besylate 5 Mg Tablet 5 Mg PO DAILY I have reviewed the current psychotropics carefully including drug interactions. Risk benefit ratio favors no change other than as noted in my dictated progress note. Diagnosis: Problems: (1) Major depressive disorder, recurrent episode (2) Personality disorder in adult (3) Acute on chronic respiratory failure with hypoxia and hypercapnia CHUY NUNEZ MD Nov 02, 2017 18:43
--- NOTE | 2017-11-02 19:04 | PDOC ---
SUBJECTIVE: Patient sitting up eating lunch on side of bed. She's been on nasal cannula since yesterday afternoon PCO2 improved to 66. Currently 95% on 4L O2 per NC, patient has no conversational dyspnea and appears to be breathing normally. She says she's breathing much better and her right leg continues to feel better she now stands on it. Paranoia symptoms are more pronounced today she says she won't take meds until they arrive from [place]. Denies any new symptoms, family not present. RN reports no new issues other than refusing treatments. Labs relatively unchanged see below. OBJECTIVE: Problems: Problems Medical Problems: (1) Cellulitis Status: Acute (2) COPD (chronic obstructive pulmonary disease) with acute bronchitis Status: Acute Vital Signs: Vital Signs Date Time Temp Pulse Resp B/P (MAP) Pulse Ox O2 Delivery O2 Flow Rate FiO2 11/02/17 18:00 111 20 154/91 (112) 95 Nasal Cannula 4.0 11/02/17 17:05 98.4 I & O Intake and Output 11/02/17 07:00 Intake Total 3130 ml Output Total 601 ml Balance 2529 ml Intake Oral 2380 ml IV Total 750 ml Output Urine Total 600 ml Urine/Stool Mix 1 ml # Voids 2 # Bowel Movements 1 Labs: Laboratory Tests Test 10/31/17 19:10 11/01/17 05:38 11/01/17 06:20 11/01/17 11:15 Blood Gas pH 7.37 (7.35-7.45) 7.40 (7.35-7.45) Blood Gas PCO2 77 mmHg (35-45) 78 mmHg (35-45) Blood Gas PO2 72 mmHg (80-100) 93 mmHg (80-100) Blood Gas HCO3 45 mmol/L (22-26) 48 mmol/L (22-26) Arterial Bld O2 Saturation (Calc) 93 % (92-99) 97 % (92-99) FiO2 35 % 35 % White Blood Count 9.2 x10^3/uL (4.0-11.0) Red Blood Count 4.08 x10^6/uL (3.50-5.40) Hemoglobin 12.2 g/dL (12.0-15.5) Hematocrit 37.5 % (36.0-47.0) Mean Corpuscular Volume 92 fL (79-100) Mean Corpuscular Hemoglobin 30 pg (25-35) Mean Corpuscular Hemoglobin Concent 33 g/dL (31-37) Red Cell Distribution Width 13.0 % (11.5-14.5) Platelet Count 251 x10^3/uL (140-400) Sodium Level 133 mmol/L (136-145) Potassium Level 4.3 mmol/L (3.5-5.1) Chloride Level 93 mmol/L (98-107) Carbon Dioxide Level 47 mmol/L (21-32) Anion Gap -7 (6-14) Blood Urea Nitrogen 19 mg/dL (7-20) Creatinine 0.5 mg/dL (0.6-1.0) Estimated GFR (Cockcroft-Gault) 126.3 BUN/Creatinine Ratio 38 (6-20) Glucose Level 83 mg/dL (70-99) Calcium Level 9.3 mg/dL (8.5-10.1) Total Bilirubin 0.2 mg/dL (0.2-1.0) Aspartate Amino Transf (AST/SGOT) 11 U/L (15-37) Alanine Aminotransferase (ALT/SGPT) 21 U/L (14-59) Alkaline Phosphatase 62 U/L (46-116) Total Protein 6.0 g/dL (6.4-8.2) Albumin 2.9 g/dL (3.4-5.0) Albumin/Globulin Ratio 0.9 (1.0-1.7) Vancomycin Level Trough 5.3 mcg/mL (10.0-20.0) Vancomycin Last Dose Date 11/01/17 Vancomycin Last Dose Time 0000 Test 11/01/17 16:50 11/02/17 06:05 11/02/17 11:33 11/02/17 12:32 Blood Gas pH 7.37 (7.35-7.45) 7.33 (7.35-7.45) Blood Gas PCO2 66 mmHg (35-45) 83 mmHg (35-45) Blood Gas PO2 63 mmHg (80-100) 70 mmHg (80-100) Blood Gas HCO3 38 mmol/L (22-26) 44 mmol/L (22-26) Arterial Bld O2 Saturation (Calc) 91 % (92-99) 91 % (92-99) FiO2 32 % 36 % White Blood Count 11.9 x10^3/uL (4.0-11.0) Red Blood Count 4.21 x10^6/uL (3.50-5.40) Hemoglobin 12.5 g/dL (12.0-15.5) Hematocrit 38.0 % (36.0-47.0) Mean Corpuscular Volume 90 fL (79-100) Mean Corpuscular Hemoglobin 30 pg (25-35) Mean Corpuscular Hemoglobin Concent 33 g/dL (31-37) Red Cell Distribution Width 13.1 % (11.5-14.5) Platelet Count 261 x10^3/uL (140-400) Neutrophils (%) (Auto) 73 % (31-73) Lymphocytes (%) (Auto) 16 % (24-48) Monocytes (%) (Auto) 9 % (0-9) Eosinophils (%) (Auto) 1 % (0-3) Basophils (%) (Auto) 1 % (0-3) Neutrophils # (Auto) 8.8 x10^3uL (1.8-7.7) Lymphocytes # (Auto) 2.0 x10^3/uL (1.0-4.8) Monocytes # (Auto) 1.1 x10^3/uL (0.0-1.1) Eosinophils # (Auto) 0.1 x10^3/uL (0.0-0.7) Basophils # (Auto) 0.1 x10^3/uL (0.0-0.2) Sodium Level 134 mmol/L (136-145) Potassium Level 4.1 mmol/L (3.5-5.1) Chloride Level 94 mmol/L (98-107) Carbon Dioxide Level 43 mmol/L (21-32) Anion Gap -3 (6-14) Blood Urea Nitrogen 9 mg/dL (7-20) Creatinine 0.4 mg/dL (0.6-1.0) Estimated GFR (Cockcroft-Gault) 163.4 BUN/Creatinine Ratio 23 (6-20) Glucose Level 73 mg/dL (70-99) Calcium Level 8.6 mg/dL (8.5-10.1) Total Bilirubin 0.2 mg/dL (0.2-1.0) Aspartate Amino Transf (AST/SGOT) 10 U/L (15-37) Alanine Aminotransferase (ALT/SGPT) 20 U/L (14-59) Alkaline Phosphatase 56 U/L (46-116) Total Protein 5.9 g/dL (6.4-8.2) Albumin 2.8 g/dL (3.4-5.0) Albumin/Globulin Ratio 0.9 (1.0-1.7) Vancomycin Level Trough 9.8 mcg/mL (10.0-20.0) Vancomycin Last Dose Date 11/02/17 Vancomycin Last Dose Time 0400 Physical Exam: Gen: NAD, no conversational dyspnea HEENT: NCAT, oral mucosa moist Neck: supple, nontender Pulm: diffuse wheezes, fair to good air movement CVS: normal S1S2 no murmur Ext: nails clubbed, continued improvement RLE erythema no vesicles/fluctuance/ discharge ASSESSMENT: Acute on chronic hypercapneic respiratory failure RLE Cellulitis Possible borderline personality disorder PLAN: Downgrade to telemetry, continue nasal cannula try to wean O2. Continue respiratory support/vancomycin. No new changes from ativan currently per Dr Morales. JENNIFER TURK DO Nov 02, 2017 19:04
[2017-11-02] MEDS: LORazepam 2 MG/ML VIAL IV PRN (21:02)
[2017-11-03] VITALS (7 sets, daily range): BP systolic 122–183; BP diastolic 69–92
[2017-11-03] MEDS: VANCOMYCIN 1 GM in IV NORMAL SALINE 250ML 250 ML IV SCH ×3 (06:13→21:28)
[2017-11-03] MEDS: cloNIDine HCL 0.1 MG TABLET PO SCH ×3 (06:25→21:28)
[2017-11-03 08:17] LABS: BASO % 1 % (0-3); EOS % 1 % (0-3); HEMATOCRIT 39.7 % (36.0-47.0); HEMOGLOBIN 12.8 g/dL (12.0-15.5); LYMPH # 1.5 x10^3/uL (1.0-4.8); LYMPH % 17 % (24-48); MEAN CORPUSCULAR HEMOGLOBIN 30 pg (25-35); MEAN CORPUSCULAR HGB CONC 32 g/dL (31-37); MEAN CORPUSCULAR VOLUME 91 fL (79-100); MONO # 0.9 x10^3/uL (0.0-1.1); MONO % 10 % (0-9); NEUT # 6.1 x10^3uL (1.8-7.7); NEUT % 72 % (31-73); PLATELET COUNT 250 x10^3/uL (140-400); RED BLOOD COUNT 4.35 x10^6/uL (3.50-5.40); RED CELL DISTRIBUTION WIDTH 13.2 % (11.5-14.5); WHITE BLOOD COUNT 8.5 x10^3/uL (4.0-11.0)
[2017-11-03 08:26] LABS: CALCIUM 8.7 mg/dL (8.5-10.1); CREATININE 0.5 mg/dL (0.6-1.0); GFR 126.3; POTASSIUM 4.5 mmol/L (3.5-5.1)
[2017-11-03] MEDS: amLODIPine BESYLATE 5 MG TABLET PO SCH (09:00)
[2017-11-03] MEDS: methylPREDNISolone SOD SUCC PF 125 MG/2 ML VIAL. IV SCH (09:35)
[2017-11-03] MEDS: LACTOBACILLUS RHAMNOSUS GG 1 CAPSULE. PO SCH ×2 (09:36→21:28)
[2017-11-03 12:52] LABS: VANC TR 13.9 mcg/mL (10.0-20.0)
[2017-11-03] MEDS: VANCOMYCIN PER PHARMACY MC PRN (13:01)
--- NOTE | 2017-11-03 14:57 | PDOC ---
Progress Note. Objective: Vital Signs: Vital Signs Date Time Temp Pulse Resp B/P (MAP) Pulse Ox O2 Delivery O2 Flow Rate FiO2 11/03/17 13:54 100 18 151/91 (111) 95 Nasal Cannula 2.0 11/03/17 06:00 98.4 I & O: Intake and Output 11/03/17 07:00 Intake Total 2070 ml Output Total 1700 ml Balance 370 ml Intake Oral 1820 ml IV Total 250 ml Output Urine Total 1700 ml # Voids 1 Labs: Laboratory Tests Test 11/01/17 16:50 11/02/17 06:05 11/02/17 11:33 11/02/17 12:32 Blood Gas pH 7.37 (7.35-7.45) 7.33 (7.35-7.45) Blood Gas PCO2 66 mmHg (35-45) 83 mmHg (35-45) Blood Gas PO2 63 mmHg (80-100) 70 mmHg (80-100) Blood Gas HCO3 38 mmol/L (22-26) 44 mmol/L (22-26) Arterial Bld O2 Saturation (Calc) 91 % (92-99) 91 % (92-99) FiO2 32 % 36 % White Blood Count 11.9 x10^3/uL (4.0-11.0) Red Blood Count 4.21 x10^6/uL (3.50-5.40) Hemoglobin 12.5 g/dL (12.0-15.5) Hematocrit 38.0 % (36.0-47.0) Mean Corpuscular Volume 90 fL (79-100) Mean Corpuscular Hemoglobin 30 pg (25-35) Mean Corpuscular Hemoglobin Concent 33 g/dL (31-37) Red Cell Distribution Width 13.1 % (11.5-14.5) Platelet Count 261 x10^3/uL (140-400) Neutrophils (%) (Auto) 73 % (31-73) Lymphocytes (%) (Auto) 16 % (24-48) Monocytes (%) (Auto) 9 % (0-9) Eosinophils (%) (Auto) 1 % (0-3) Basophils (%) (Auto) 1 % (0-3) Neutrophils # (Auto) 8.8 x10^3uL (1.8-7.7) Lymphocytes # (Auto) 2.0 x10^3/uL (1.0-4.8) Monocytes # (Auto) 1.1 x10^3/uL (0.0-1.1) Eosinophils # (Auto) 0.1 x10^3/uL (0.0-0.7) Basophils # (Auto) 0.1 x10^3/uL (0.0-0.2) Sodium Level 134 mmol/L (136-145) Potassium Level 4.1 mmol/L (3.5-5.1) Chloride Level 94 mmol/L (98-107) Carbon Dioxide Level 43 mmol/L (21-32) Anion Gap -3 (6-14) Blood Urea Nitrogen 9 mg/dL (7-20) Creatinine 0.4 mg/dL (0.6-1.0) Estimated GFR (Cockcroft-Gault) 163.4 BUN/Creatinine Ratio 23 (6-20) Glucose Level 73 mg/dL (70-99) Calcium Level 8.6 mg/dL (8.5-10.1) Total Bilirubin 0.2 mg/dL (0.2-1.0) Aspartate Amino Transf (AST/SGOT) 10 U/L (15-37) Alanine Aminotransferase (ALT/SGPT) 20 U/L (14-59) Alkaline Phosphatase 56 U/L (46-116) Total Protein 5.9 g/dL (6.4-8.2) Albumin 2.8 g/dL (3.4-5.0) Albumin/Globulin Ratio 0.9 (1.0-1.7) Vancomycin Level Trough 9.8 mcg/mL (10.0-20.0) Vancomycin Last Dose Date 11/02/17 Vancomycin Last Dose Time 0400 Test 11/03/17 08:07 11/03/17 12:32 White Blood Count 8.5 x10^3/uL (4.0-11.0) Red Blood Count 4.35 x10^6/uL (3.50-5.40) Hemoglobin 12.8 g/dL (12.0-15.5) Hematocrit 39.7 % (36.0-47.0) Mean Corpuscular Volume 91 fL (79-100) Mean Corpuscular Hemoglobin 30 pg (25-35) Mean Corpuscular Hemoglobin Concent 32 g/dL (31-37) Red Cell Distribution Width 13.2 % (11.5-14.5) Platelet Count 250 x10^3/uL (140-400) Neutrophils (%) (Auto) 72 % (31-73) Lymphocytes (%) (Auto) 17 % (24-48) Monocytes (%) (Auto) 10 % (0-9) Eosinophils (%) (Auto) 1 % (0-3) Basophils (%) (Auto) 1 % (0-3) Neutrophils # (Auto) 6.1 x10^3uL (1.8-7.7) Lymphocytes # (Auto) 1.5 x10^3/uL (1.0-4.8) Monocytes # (Auto) 0.9 x10^3/uL (0.0-1.1) Eosinophils # (Auto) 0.0 x10^3/uL (0.0-0.7) Basophils # (Auto) 0.0 x10^3/uL (0.0-0.2) Sodium Level 134 mmol/L (136-145) Potassium Level 4.5 mmol/L (3.5-5.1) Chloride Level 95 mmol/L (98-107) Carbon Dioxide Level 52 mmol/L (21-32) Anion Gap -13 (6-14) Blood Urea Nitrogen 8 mg/dL (7-20) Creatinine 0.5 mg/dL (0.6-1.0) Estimated GFR (Cockcroft-Gault) 126.3 Glucose Level 81 mg/dL (70-99) Calcium Level 8.7 mg/dL (8.5-10.1) Vancomycin Level Trough 13.9 mcg/mL (10.0-20.0) Vancomycin Last Dose Date 11/03/2017 Vancomycin Last Dose Time 0500 Physical Exam: Gen.: Alert, pleasant, no apparent distress HEENT: Normocephalic atraumatic, PERRLA EOMI, no scleral icterus, oral mucosa pink and moist Neck: Supple, no lymphadenopathy, nontender Cardiovascular: Normal S1 and S2 no murmurs Pulmonary: Lungs are clear bilaterally with good air movement no respiratory distress Abdomen: Soft nontender non-distended, bowel sounds present no masses Extremities: No clubbing, cyanosis or edema Neuro: Alert and oriented 3, cranial nerves II through XII grossly intact, no lateralizing neuro deficits Skin: Warm, dry ROSALEEJENNIFER K DO Nov 03, 2017 14:57
[2017-11-03] MEDS ORDERED: METH4TAB2 PO (15:22)
[2017-11-03] MEDS ORDERED: VANC1VIA3 IV (15:22)
--- NOTE | 2017-11-03 15:25 | PDOC3 ---
Discharge Summary Visit Information Date of Admission: Oct 31, 2017 Date of Discharge: Nov 04, 2017 Admitting Diagnosis: acute on chronic hypercapnic hypoxic respiratory failure Final Diagnosis Problems Medical Problems: (1) Cellulitis Status: Acute (2) COPD (chronic obstructive pulmonary disease) with acute bronchitis Status: Acute Problems: (1) Acute on chronic respiratory failure with hypoxia and hypercapnia (2) COPD with acute exacerbation (3) Cellulitis (4) Severe malnutrition (5) Tobacco use disorder, severe, dependence (6) Essential hypertension (7) Personality disorder in adult (8) Anxiety disorder (9) Major depressive disorder, recurrent episode Brief Hospital Course Allergies Allergies Coded Allergies Type Severity Reaction Last Updated Verified Sulfa (Sulfonamide Antibiotics) Allergy Intermediate 06/29/17 Yes cefaclor Allergy Intermediate 06/29/17 Yes ciprofloxacin Allergy Intermediate 06/29/17 Yes doxycycline Allergy Intermediate 06/29/17 Yes erythromycin base Allergy Intermediate 06/29/17 Yes iodine Allergy Intermediate 10/30/17 Yes lisinopril Allergy Intermediate 06/29/17 Yes metronidazole Allergy Intermediate 06/29/17 Yes tetracycline Allergy Intermediate 06/29/17 Yes Vital Signs Vital Signs Date Time Temp Pulse Resp B/P (MAP) Pulse Ox O2 Delivery O2 Flow Rate FiO2 11/03/17 13:54 100 18 151/91 (111) 95 Nasal Cannula 2.0 11/03/17 06:00 98.4 Lab Results Laboratory Tests Test 11/01/17 16:50 11/02/17 06:05 11/02/17 11:33 11/02/17 12:32 Blood Gas pH 7.37 (7.35-7.45) 7.33 (7.35-7.45) Blood Gas PCO2 66 mmHg (35-45) 83 mmHg (35-45) Blood Gas PO2 63 mmHg (80-100) 70 mmHg (80-100) Blood Gas HCO3 38 mmol/L (22-26) 44 mmol/L (22-26) Arterial Bld O2 Saturation (Calc) 91 % (92-99) 91 % (92-99) FiO2 32 % 36 % White Blood Count 11.9 x10^3/uL (4.0-11.0) Red Blood Count 4.21 x10^6/uL (3.50-5.40) Hemoglobin 12.5 g/dL (12.0-15.5) Hematocrit 38.0 % (36.0-47.0) Mean Corpuscular Volume 90 fL (79-100) Mean Corpuscular Hemoglobin 30 pg (25-35) Mean Corpuscular Hemoglobin Concent 33 g/dL (31-37) Red Cell Distribution Width 13.1 % (11.5-14.5) Platelet Count 261 x10^3/uL (140-400) Neutrophils (%) (Auto) 73 % (31-73) Lymphocytes (%) (Auto) 16 % (24-48) Monocytes (%) (Auto) 9 % (0-9) Eosinophils (%) (Auto) 1 % (0-3) Basophils (%) (Auto) 1 % (0-3) Neutrophils # (Auto) 8.8 x10^3uL (1.8-7.7) Lymphocytes # (Auto) 2.0 x10^3/uL (1.0-4.8) Monocytes # (Auto) 1.1 x10^3/uL (0.0-1.1) Eosinophils # (Auto) 0.1 x10^3/uL (0.0-0.7) Basophils # (Auto) 0.1 x10^3/uL (0.0-0.2) Sodium Level 134 mmol/L (136-145) Potassium Level 4.1 mmol/L (3.5-5.1) Chloride Level 94 mmol/L (98-107) Carbon Dioxide Level 43 mmol/L (21-32) Anion Gap -3 (6-14) Blood Urea Nitrogen 9 mg/dL (7-20) Creatinine 0.4 mg/dL (0.6-1.0) Estimated GFR (Cockcroft-Gault) 163.4 BUN/Creatinine Ratio 23 (6-20) Glucose Level 73 mg/dL (70-99) Calcium Level 8.6 mg/dL (8.5-10.1) Total Bilirubin 0.2 mg/dL (0.2-1.0) Aspartate Amino Transf (AST/SGOT) 10 U/L (15-37) Alanine Aminotransferase (ALT/SGPT) 20 U/L (14-59) Alkaline Phosphatase 56 U/L (46-116) Total Protein 5.9 g/dL (6.4-8.2) Albumin 2.8 g/dL (3.4-5.0) Albumin/Globulin Ratio 0.9 (1.0-1.7) Vancomycin Level Trough 9.8 mcg/mL (10.0-20.0) Vancomycin Last Dose Date 11/02/17 Vancomycin Last Dose Time 0400 Test 11/03/17 08:07 11/03/17 12:32 White Blood Count 8.5 x10^3/uL (4.0-11.0) Red Blood Count 4.35 x10^6/uL (3.50-5.40) Hemoglobin 12.8 g/dL (12.0-15.5) Hematocrit 39.7 % (36.0-47.0) Mean Corpuscular Volume 91 fL (79-100) Mean Corpuscular Hemoglobin 30 pg (25-35) Mean Corpuscular Hemoglobin Concent 32 g/dL (31-37) Red Cell Distribution Width 13.2 % (11.5-14.5) Platelet Count 250 x10^3/uL (140-400) Neutrophils (%) (Auto) 72 % (31-73) Lymphocytes (%) (Auto) 17 % (24-48) Monocytes (%) (Auto) 10 % (0-9) Eosinophils (%) (Auto) 1 % (0-3) Basophils (%) (Auto) 1 % (0-3) Neutrophils # (Auto) 6.1 x10^3uL (1.8-7.7) Lymphocytes # (Auto) 1.5 x10^3/uL (1.0-4.8) Monocytes # (Auto) 0.9 x10^3/uL (0.0-1.1) Eosinophils # (Auto) 0.0 x10^3/uL (0.0-0.7) Basophils # (Auto) 0.0 x10^3/uL (0.0-0.2) Sodium Level 134 mmol/L (136-145) Potassium Level 4.5 mmol/L (3.5-5.1) Chloride Level 95 mmol/L (98-107) Carbon Dioxide Level 52 mmol/L (21-32) Anion Gap -13 (6-14) Blood Urea Nitrogen 8 mg/dL (7-20) Creatinine 0.5 mg/dL (0.6-1.0) Estimated GFR (Cockcroft-Gault) 126.3 Glucose Level 81 mg/dL (70-99) Calcium Level 8.7 mg/dL (8.5-10.1) Vancomycin Level Trough 13.9 mcg/mL (10.0-20.0) Vancomycin Last Dose Date 11/03/2017 Vancomycin Last Dose Time 0500 Brief Hospital Course Ms. Mark is a 57 old female who presented to the emergency department with decreased responsiveness/altered mental status and confusion found to be in respiratory distress with acute on chronic hypercapnic hypoxic respiratory failure. Initial blood gas: PH 7.19, PCO2 128, PO2 161, bicarbonate 49. She was admitted to the ICU and placed on BiPAP as well as intravenous steroids and nebulizers. Cellulitis was noted after a reported bug bite at her right leg and due to her numerous antibiotic allergies she was placed on vancomycin intravenously. Through her hospital course her blood gas did improve to her baseline, the cellulitic changes of her lower extremity have improved significantly as well. She has remained stable for the last 24 hours with normal vital signs on her home O2. Due to her numerous drug allergies she will need to finish her antimicrobial course of vancomycin and will need to be discharged to [facility] with PICC line placed. I find her today sitting on the edge of her bed talking with her nurse in no apparent distress with no conversational dyspnea. She reports that her breathing status has returned to baseline and her foot hardly bothers her now when she stands. She denies any new questions or complaints. Her vital signs and labs have been reviewed as below and at the time of dictation I reviewed her chest x-ray confirming PICC line placement. Constitutional: Thin, no acute distress, non-toxic appearance. HENT: Normocephalic, atraumatic, bilateral external ears normal, oropharynx moist, no oral exudates, nose normal. Eyes: LUTHER, EOMI, conjunctiva normal, no discharge. Neck: Normal range of motion, no tenderness, supple, no stridor. Cardiovascular: S1 N,S2N. No murmurs. No rubs or clicks. Thorax and Lungs: Normal respiration. Normal chest expansion, faint expiratory wheezes bilaterally Abdomen: Bowel sounds normal, soft, no tenderness, no masses, no pulsatile masses. Skin: Warm, dry, significant improvement cellulitic changes to just a small area about the ankle no swelling induration tenderness or warmth Back: No tenderness, no CVA tenderness. Extremities: Intact distal pulses, no tenderness, no cyanosis, clubbing noted Neurologic: Alert and oriented X 3, normal motor function, normal sensory function, no focal deficits noted. Discharge Information Condition at Discharge: Improved Follow Up: Weeks (follow-up with her doctor in 3-5 days for recheck) Disposition/Orders: D/C to Another Facility ([facility]) Dischare Medications Current Medications Lactated Ringer's 1,000 ml @ 1,000 mls/hr Q1H IV Last administered on at 23:55; Start 10/30/17 at 21:30; Stop 10/30/17 at 22:29; Status DC Methylprednisolone Sodium Succinate (SOLU-Medrol 125MG VIAL) 125 mg 1X ONCE IV Last administered on 10/30/17at 23:57; Start 10/30/17 at 23:30; Stop 10/31/17 at 00:10; Status DC Vancomycin HCl 1 gm/Sodium Chloride 250 ml @ 250 mls/hr 1X ONCE IV Last administered on 10/30/17at 23:57; Start 10/30/17 at 23:30; Stop 10/31/17 at 00:29 ; Status DC Albuterol/ Ipratropium (Duoneb) 3 ml 1X ONCE NEB Last administered on at 23:31; Start 10/30/17 at 23:30; Stop 10/31/17 at 00:10; Status DC Ondansetron HCl (Zofran) 4 mg PRN Q4HRS PRN IV NAUSEA/VOMITING Last administered on 10/30/17at 23:31; Start 10/30/17 at 23:30; Stop 10/31/17 at 23:29 ; Status DC Albuterol/ Ipratropium (Duoneb) 3 ml RTQID NEB Last administered on 11/01/17at 06:25; Start 10/31/17 at 08:00; Stop 11/01/17 at 08:00; Status DC Vancomycin HCl (Vanco Per Pharmacy) 1 each PRN DAILY PRN MC SEE COMMENTS Last administered on 11/03/17at 13:01; Start 10/30/17 at 23:30 Methylprednisolone Sodium Succinate (SOLU-Medrol 125MG VIAL) 125 mg DAILY IV Last administered on 11/03/17at 09:35; Start 10/31/17 at 09:00 Sodium Chloride 250 ml @ As Directed STK-MED ONCE .ROUTE ; Start 10/30/17 at 23 :38; Stop 10/30/17 at 23:39; Status DC Vancomycin HCl (Vancomycin) 1 gm STK-MED ONCE .ROUTE ; Start 10/30/17 at 23:38; Stop 10/30/17 at 23:39; Status DC Lorazepam (Ativan) 0.5 mg PRN Q4HRS PRN IV ANXIETY / AGITATION Last administered on 11/02/17at 21:02; Start 10/31/17 at 01:45 Vancomycin HCl 750 mg/Sodium Chloride 250 ml @ 250 mls/hr Q12H IV Last administered on 11/01/17at 12:12; Start 10/31/17 at 12:00; Stop 11/01/17 at 15:00 ; Status DC Vancomycin HCl (Vancomycin Trough Level) 1 each 1X ONCE MC Last administered on 11/01/17at 11:30; Start 11/01/17 at 11:30; Stop 11/01/17 at 11:31; Status DC Lactobacillus Rhamnosus (Culturelle) 1 cap BID PO Last administered on at 09:36; Start 10/31/17 at 09:00 Vancomycin HCl 750 mg/Sodium Chloride 250 ml @ 250 mls/hr Q8H IV Last administered on 11/02/17at 03:44; Start 11/01/17 at 20:00; Stop 11/02/17 at 12:49 ; Status DC Vancomycin HCl (Vancomycin Trough Level) 1 each 1X ONCE MC Last administered on 11/02/17at 11:30; Start 11/02/17 at 11:30; Stop 11/02/17 at 11:31; Status DC Albuterol/ Ipratropium (Duoneb) 3 ml STK-MED ONCE .ROUTE Last administered on at 15:25; Start 11/01/17 at 15:08; Stop 11/01/17 at 15:09; Status DC Clonidine HCl (Catapres) 0.1 mg Q8HRS PO Last administered on 11/03/17at 06:25; Start 11/02/17 at 14:00 Vancomycin HCl 1 gm/Sodium Chloride 250 ml @ 250 mls/hr Q8H IV Last administered on 11/03/17at 14:35; Start 11/02/17 at 13:00 Vancomycin HCl (Vancomycin Trough Level) 1 each 1X ONCE MC Last administered on 11/03/17at 12:30; Start 11/03/17 at 12:30; Stop 11/03/17 at 12:31; Status DC Amlodipine Besylate (Norvasc) 5 mg DAILY PO ; Start 11/03/17 at 09:00 Vancomycin HCl (Vancomycin Trough Level) 1 each 1X ONCE MC ; Start 11/05/17 at 12:30; Stop 11/05/17 at 12:31 Active Scripts Active Medrol (Methylprednisolone) 4 Mg Tab.ds.pk 1 Pkg PO UD Vancomycin Hcl 1 Gm Vial 1 Each IV DAILY 6 Days Amlodipine Besylate 5 Mg Tablet 5 Mg PO DAILY Patient Instructions Patient Instuctions [facility] facility pharmacist or staff physician to manage vancomycin levels. Problem Qualifiers (1) Cellulitis: Site of cellulitis of extremity: lower extremity Laterality: right (2) Anxiety disorder: Anxiety disorder type: unspecified anxiety disorder Qualified Codes: F41.9 - Anxiety disorder, unspecified (3) Major depressive disorder, recurrent episode: Major depression episode severity: moderate Qualified Codes: F33.1 - Major depressive disorder, recurrent, moderate JENNIFER TURK DO Nov 03, 2017 15:25
[2017-11-03] MEDS: LORazepam 2 MG/ML VIAL IV PRN ×2 (15:42→21:29)
--- NOTE | 2017-11-03 20:37 | PDOC ---
Exam Note: Art Note: Please also refer to the separate dictated note~for this date of service dictated separately.~Patient seen individually. Discussed the patient with Nursing staff reviewed the chart.~Reviewed interim history and current functioning. Reviewed vital signs,~Labs/ Radiology~and current medications noted below. Continue current treatment with the changes noted in the dictated addendum note Assessment: Vital Signs: Vital Signs Date Time Temp Pulse Resp B/P (MAP) Pulse Ox O2 Delivery O2 Flow Rate FiO2 11/03/17 20:07 Nasal Cannula 2.0 11/03/17 19:50 97.7 92 20 167/80 (109) 97 I&O Intake and Output 11/03/17 07:00 Intake Total 2070 ml Output Total 1700 ml Balance 370 ml Intake Oral 1820 ml IV Total 250 ml Output Urine Total 1700 ml # Voids 1 Labs: Laboratory Tests Test 11/03/17 08:07 11/03/17 12:32 White Blood Count 8.5 x10^3/uL (4.0-11.0) Red Blood Count 4.35 x10^6/uL (3.50-5.40) Hemoglobin 12.8 g/dL (12.0-15.5) Hematocrit 39.7 % (36.0-47.0) Mean Corpuscular Volume 91 fL (79-100) Mean Corpuscular Hemoglobin 30 pg (25-35) Mean Corpuscular Hemoglobin Concent 32 g/dL (31-37) Red Cell Distribution Width 13.2 % (11.5-14.5) Platelet Count 250 x10^3/uL (140-400) Neutrophils (%) (Auto) 72 % (31-73) Lymphocytes (%) (Auto) 17 % (24-48) L Monocytes (%) (Auto) 10 % (0-9) H Eosinophils (%) (Auto) 1 % (0-3) Basophils (%) (Auto) 1 % (0-3) Neutrophils # (Auto) 6.1 x10^3uL (1.8-7.7) Lymphocytes # (Auto) 1.5 x10^3/uL (1.0-4.8) Monocytes # (Auto) 0.9 x10^3/uL (0.0-1.1) Eosinophils # (Auto) 0.0 x10^3/uL (0.0-0.7) Basophils # (Auto) 0.0 x10^3/uL (0.0-0.2) Sodium Level 134 mmol/L (136-145) L Potassium Level 4.5 mmol/L (3.5-5.1) Chloride Level 95 mmol/L (98-107) L Carbon Dioxide Level 52 mmol/L (21-32) H Anion Gap -13 (6-14) L Blood Urea Nitrogen 8 mg/dL (7-20) Creatinine 0.5 mg/dL (0.6-1.0) L Estimated GFR (Cockcroft-Gault) 126.3 Glucose Level 81 mg/dL (70-99) Calcium Level 8.7 mg/dL (8.5-10.1) Vancomycin Level Trough 13.9 mcg/mL (10.0-20.0) Vancomycin Last Dose Date 11/03/2017 Vancomycin Last Dose Time 0500 Current Medications: Meds: Current Medications Lactated Ringer's 1,000 ml @ 1,000 mls/hr Q1H IV Last administered on at 23:55; Start 10/30/17 at 21:30; Stop 10/30/17 at 22:29; Status DC Methylprednisolone Sodium Succinate (SOLU-Medrol 125MG VIAL) 125 mg 1X ONCE IV Last administered on 10/30/17at 23:57; Start 10/30/17 at 23:30; Stop 10/31/17 at 00:10; Status DC Vancomycin HCl 1 gm/Sodium Chloride 250 ml @ 250 mls/hr 1X ONCE IV Last administered on 10/30/17at 23:57; Start 10/30/17 at 23:30; Stop 10/31/17 at 00:29 ; Status DC Albuterol/ Ipratropium (Duoneb) 3 ml 1X ONCE NEB Last administered on at 23:31; Start 10/30/17 at 23:30; Stop 10/31/17 at 00:10; Status DC Ondansetron HCl (Zofran) 4 mg PRN Q4HRS PRN IV NAUSEA/VOMITING Last administered on 10/30/17at 23:31; Start 10/30/17 at 23:30; Stop 10/31/17 at 23:29 ; Status DC Albuterol/ Ipratropium (Duoneb) 3 ml RTQID NEB Last administered on 11/01/17at 06:25; Start 10/31/17 at 08:00; Stop 11/01/17 at 08:00; Status DC Vancomycin HCl (Vanco Per Pharmacy) 1 each PRN DAILY PRN MC SEE COMMENTS Last administered on 11/03/17at 13:01; Start 10/30/17 at 23:30 Methylprednisolone Sodium Succinate (SOLU-Medrol 125MG VIAL) 125 mg DAILY IV Last administered on 11/03/17at 09:35; Start 10/31/17 at 09:00 Sodium Chloride 250 ml @ As Directed STK-MED ONCE .ROUTE ; Start 10/30/17 at 23 :38; Stop 10/30/17 at 23:39; Status DC Vancomycin HCl (Vancomycin) 1 gm STK-MED ONCE .ROUTE ; Start 10/30/17 at 23:38; Stop 10/30/17 at 23:39; Status DC Lorazepam (Ativan) 0.5 mg PRN Q4HRS PRN IV ANXIETY / AGITATION Last administered on 11/03/17at 15:42; Start 10/31/17 at 01:45 Vancomycin HCl 750 mg/Sodium Chloride 250 ml @ 250 mls/hr Q12H IV Last administered on 11/01/17at 12:12; Start 10/31/17 at 12:00; Stop 11/01/17 at 15:00 ; Status DC Vancomycin HCl (Vancomycin Trough Level) 1 each 1X ONCE MC Last administered on 11/01/17at 11:30; Start 11/01/17 at 11:30; Stop 11/01/17 at 11:31; Status DC Lactobacillus Rhamnosus (Culturelle) 1 cap BID PO Last administered on at 09:36; Start 10/31/17 at 09:00 Vancomycin HCl 750 mg/Sodium Chloride 250 ml @ 250 mls/hr Q8H IV Last administered on 11/02/17at 03:44; Start 11/01/17 at 20:00; Stop 11/02/17 at 12:49 ; Status DC Vancomycin HCl (Vancomycin Trough Level) 1 each 1X ONCE MC Last administered on 11/02/17at 11:30; Start 11/02/17 at 11:30; Stop 11/02/17 at 11:31; Status DC Albuterol/ Ipratropium (Duoneb) 3 ml STK-MED ONCE .ROUTE Last administered on at 15:25; Start 11/01/17 at 15:08; Stop 11/01/17 at 15:09; Status DC Clonidine HCl (Catapres) 0.1 mg Q8HRS PO Last administered on 11/03/17at 06:25; Start 11/02/17 at 14:00 Vancomycin HCl 1 gm/Sodium Chloride 250 ml @ 250 mls/hr Q8H IV Last administered on 11/03/17at 14:35; Start 11/02/17 at 13:00 Vancomycin HCl (Vancomycin Trough Level) 1 each 1X ONCE MC Last administered on 11/03/17at 12:30; Start 11/03/17 at 12:30; Stop 11/03/17 at 12:31; Status DC Amlodipine Besylate (Norvasc) 5 mg DAILY PO ; Start 11/03/17 at 09:00 Vancomycin HCl (Vancomycin Trough Level) 1 each 1X ONCE MC ; Start 11/05/17 at 12:30; Stop 11/05/17 at 12:31 Active Scripts Active Medrol (Methylprednisolone) 4 Mg Tab.ds.pk 1 Pkg PO UD Vancomycin Hcl 1 Gm Vial 1 Each IV DAILY 6 Days Amlodipine Besylate 5 Mg Tablet 5 Mg PO DAILY I have reviewed the current psychotropics carefully including drug interactions. Risk benefit ratio favors no change other than as noted in my dictated progress note. Diagnosis: Problems: (1) Severe malnutrition (2) Acute on chronic respiratory failure with hypoxia and hypercapnia (3) COPD with acute exacerbation (4) Shortness of breath (5) Pulmonary hypertension (6) Essential hypertension (7) Tobacco use disorder, severe, dependence (8) Right heart failure due to pulmonary hypertension (9) Anxiety disorder (10) Cellulitis (11) Impulse control disorder (12) COPD (chronic obstructive pulmonary disease) with acute bronchitis (13) Major depressive disorder, recurrent episode (14) Personality disorder in adult CHUY NUNEZ MD Nov 03, 2017 20:37
--- NOTE | 2017-11-03 22:52 | PN ---
DATE: 11/02/2017 This is a late entry for 11/02/2017 covers elements not covered in my initial note. SUBJECTIVE: I met with the patient in the evening at length. Per nursing report, the patient is still resistive with her medications, often has excuses that she is allergic to various medications and refuses O2 supplements as well. I addressed this with her at some length and she is quite obsessed and fixated that she knows what she is allergic to and will not take it. Alternatives were not being accepted by the patient. REVIEW OF SYSTEMS: Shortness of breath. No CV, GI, , eye system symptoms on review. MENTAL STATUS EXAM: The patient is reasonably oriented. Speech is coherent, abstraction fair, computation impaired. Mood and affect remain somewhat anxious, dysphoric. LABORATORY DATA: Reviewed. IMPRESSION: Major depressive disorder, personality disorder, unspecified. PLAN: No change from initial note. She is on Ativan and that seems to help her anxiety and accept some of the treatment that she; otherwise, refuses and we will persist with this. Outpatient, she should follow up at the [facility] post-discharge. CHUY NUNEZ MD DR: LANG/gigi JOB#: [id number] / [id number]
[2017-11-04] MEDS: VANCOMYCIN 1 GM in IV NORMAL SALINE 250ML 250 ML IV SCH ×2 (04:49→13:11)
[2017-11-04 05:14] LABS: BASO % 1 % (0-3); EOS % 0 % (0-3); HEMATOCRIT 39.4 % (36.0-47.0); HEMOGLOBIN 12.8 g/dL (12.0-15.5); LYMPH # 1.3 x10^3/uL (1.0-4.8); LYMPH % 15 % (24-48); MEAN CORPUSCULAR HEMOGLOBIN 29 pg (25-35); MEAN CORPUSCULAR HGB CONC 32 g/dL (31-37); MEAN CORPUSCULAR VOLUME 91 fL (79-100); MONO # 0.8 x10^3/uL (0.0-1.1); MONO % 9 % (0-9); NEUT # 6.5 x10^3uL (1.8-7.7); NEUT % 75 % (31-73); PLATELET COUNT 239 x10^3/uL (140-400); RED BLOOD COUNT 4.35 x10^6/uL (3.50-5.40); WHITE BLOOD COUNT 8.7 x10^3/uL (4.0-11.0)
[2017-11-04 05:21] VITALS: BP 170/94
[2017-11-04] MEDS: cloNIDine HCL 0.1 MG TABLET PO SCH ×2 (05:26→14:00)
[2017-11-04 05:28] LABS: ALBUMIN 2.6 g/dL (3.4-5.0); ALBUMIN/GLOBULIN RATIO 0.9 (1.0-1.7); CALCIUM 8.6 mg/dL (8.5-10.1); CREATININE 0.3 mg/dL (0.6-1.0); GFR 227.7; POTASSIUM 4.6 mmol/L (3.5-5.1); TOTAL BILIRUBIN 0.1 mg/dL (0.2-1.0); TOTAL PROTEIN 5.5 g/dL (6.4-8.2)
--- NOTE | 2017-11-04 07:55 | RAD ---
Examination: CHEST AP ONLY History: CHECK PICC LINE PLACEMENT, LUMEN NOT FLUSHING ANYMORE. Comparison/Correlation: 10/28/2017 portable chest x-ray exam Findings: Portable upright frontal view of the chest was obtained. Right-sided PICC is identified to terminate overlying the superior vena cava. No pneumothorax. Pulmonary hyperinflation compatible COPD noted. Mild costophrenic angle blunting which may represent scarring and related to pulmonary hyperinflation is similar to the prior exam. No definite new infiltrate. Minimal interstitial thickening at the right lower lung field is suggested but similar to the prior exam. Right mid thoracic rib deformity. Correlate with previous intervention. Impression: Right-sided PICC is in place on basis of this frontal projection exam. No pneumothorax. COPD. Electronically signed by: Yoseph Herrera MD (11/04/2017 7:51 AM) [facility]
[2017-11-04] MEDS: methylPREDNISolone SOD SUCC PF 125 MG/2 ML VIAL. IV SCH (08:32)
[2017-11-04] MEDS: amLODIPine BESYLATE 5 MG TABLET PO SCH (08:32)
[2017-11-04] MEDS: LACTOBACILLUS RHAMNOSUS GG 1 CAPSULE. PO SCH (08:32)
[2017-11-04 09:05] VITALS: BP 162/91
--- NOTE | 2017-11-05 06:13 | PN ---
DATE: 11/03/2017 PSYCHIATRIC PROGRESS NOTE This late entry, 11/03/2017, covers elements not covered in my initial note. SUBJECTIVE: I met with the patient in the evening. Per nursing report, the patient continues to pick and choose what different medication she will accept. She is quite obsessive, anxious and has a significant amount of rationalization for why she chooses, not to accept some of the treatment, because she believes she is allergic to them. I addressed this with her at length. REVIEW OF SYSTEMS: Shortness of breath, consistent with her COPD. No CV, , GI, eye, ENT system symptoms on review. MENTAL STATUS EXAMINATION: Reasonably oriented. Speech is coherent, abstraction fair, computation impaired, language function intact. Insight limited. Judgment intact to standard questioning, but questionable with respect to her decision on her medications. IMPRESSION: Unchanged from initial note. PLAN: Continue with the Ativan p.r.n. Would recommend outpatient psychiatric followup at discharge. CHUY NUNEZ MD DR: LANG/gigi JOB#: [id number] / [id number]
== END 2017-11-04 16:35 | DRG 871 ==
LOC: ER 19:48 → ICU 10-31 00:19
PROVIDERS: ADMIT Internal Medicine; ATTEND Internal Medicine
PROC: 5A09457 Assistance with Respiratory Ventilation, 24-96 Consecutive Hours, Continuous Positive Airway Pressure (ICD-10-PCS; 2017-10-30)
PROC: 02HV33Z Insertion of Infusion Device into Superior Vena Cava, Percutaneous Approach (ICD-10-PCS; principal; 2017-11-03)
DX: A41.9 Sepsis, unspecified organism (principal); J96.21 Acute and chronic respiratory failure with hypoxia; E43 Unspecified severe protein-calorie malnutrition; J96.22 Acute and chronic respiratory failure with hypercapnia; F33.9 Major depressive disorder, recurrent, unspecified; L03.115 Cellulitis of right lower limb; J44.0 Chronic obstructive pulmonary disease with (acute) lower respiratory infection; J44.1 Chronic obstructive pulmonary disease with (acute) exacerbation; J20.9 Acute bronchitis, unspecified; W57.XXXA Bitten or stung by nonvenomous insect and other nonvenomous arthropods, initial encounter; F17.210 Nicotine dependence, cigarettes, uncomplicated; F41.9 Anxiety disorder, unspecified; F60.9 Personality disorder, unspecified; F63.9 Impulse disorder, unspecified; S80.861A Insect bite (nonvenomous), right lower leg, initial encounter; I11.0 Hypertensive heart disease with heart failure; I27.29 Other secondary pulmonary hypertension; I50.810 Right heart failure, unspecified; Z90.2 Acquired absence of lung [part of]; Z68.23 Body mass index [BMI] 23.0-23.9, adult; Z79.899 Other long term (current) drug therapy; Z85.038 Personal history of other malignant neoplasm of large intestine; Y93.89 Activity, other specified; Y99.8 Other external cause status; Y92.89 Other specified places as the place of occurrence of the external cause; Z91.14 Patient's other noncompliance with medication regimen; Z88.1 Allergy status to other antibiotic agents; Z99.81 Dependence on supplemental oxygen
CPT/HCPCS: 36415; 36569; 36600; 70450; 71045; 80048; 80053; 80076; 80202; 80307; 81001; 82553; 82803; 83690; 83735; 83880; 84443; 84484; 85025; 85027; 85379; 85610; 85730; 87641; 93005; 94640; 94660; 96365; 96375; 99292; G0480; J2060; J2405; J2930; J3370; J7050; J7120; J7620; 99291-25; G0479

== ENCOUNTER 2017-12-02 12:22 | Inpatient (IN) | payer MEDICARE, MEDICAID ==
[~2017-12-02] VITALS: Ht 157.5 cm; Wt 55.8 kg
[~2017-12-02 12:22] MED LIST changes: +METH4TAB2 PO; +VANC1VIA3 IV
[2017-12-02] MEDS ORDERED: IV NORMAL SALINE 1,000ML 1,000 ML IV SCH (12:45)
[2017-12-02] MEDS ORDERED: methylPREDNISolone SOD SUCC PF 125 MG/2 ML VIAL. IV ONE (12:45)
[2017-12-02] MEDS ORDERED: IPRATRPIUM/ALBUTEROL 0.5/2.5MG 3 ML NEBU. NEB ONE (12:45)
--- NOTE | 2017-12-02 12:47 | PHYS DOC ---
Past History Past Medical History: Cancer, CHF, COPD, Hypertension Additional Past Medical Histor: pulmonary hypertension, cor pulmonale, noncompliance Past Surgical History: Cancer Surgery (partial colectomy) Smoking: Cigarettes Alcohol Use: None Drug Use: None Adult General Chief Complaint Chief Complaint: SHORTNESS OF BREATH HPI HPI Patient is a 57-year-old white female, who is unfortunately currently a smoker , with a past history of COPD, who presents to the emergency department for being less responsive and somewhat confused at home according to her daughter, who called the emergency department concurrent with the patient's arrival, as well as increased difficulty breathing. The patient does have a history of COPD and wears 3 L of oxygen chronically. She denies any new pain. She denies any chest pain, although she states she has had "congestion", and a nonproductive cough over the past several days. She has not had any fevers. No alleviating factors to her symptoms. Exertion seems to worsen her shortness of breath. The patient states that Xopenex usually works for her but albuterol usually makes her worse, although she is agreeable to allow me to try to give her an albuterol treatment. She had refused treatment by EMS. Xopenex unfortunately is not available at this facility. Review of Systems Review of Systems Constitutional: Denies fever or chills [] Eyes: Denies change in visual acuity, redness, or eye pain [] HENT: Denies nasal congestion or sore throat [] Respiratory: Reports cough and shortness of breath [] Cardiovascular: No additional information not addressed in HPI [] GI: Denies abdominal pain, nausea, vomiting, bloody stools or diarrhea [] : Denies dysuria or hematuria [] Musculoskeletal: Denies back pain or joint pain [] Integument: Denies rash or skin lesions [] Neurologic: Denies headache, focal weakness or sensory changes [] Endocrine: Denies polyuria or polydipsia [] All other systems were reviewed and found to be within normal limits, except as documented in this note. Current Medications Current Medications Current Medications Medications (Trade) Dose Ordered Sig/Flory Start Time Stop Time Status Last Admin Dose Admin Albuterol/ Ipratropium (Duoneb) 3 ml 1X ONCE 12/02/17 12:45 12/02/17 12:46 Methylprednisolone Sodium Succinate (SOLU-Medrol 125MG VIAL) 125 mg 1X ONCE 12/02/17 12:45 12/02/17 12:46 Sodium Chloride 1,000 ml @ 100 mls/hr Q10H 12/02/17 12:45 12/02/17 22:44 UNV Allergies Allergies Allergies Coded Allergies Type Severity Reaction Last Updated Verified Sulfa (Sulfonamide Antibiotics) Allergy Intermediate 06/29/17 Yes cefaclor Allergy Intermediate 06/29/17 Yes ciprofloxacin Allergy Intermediate 06/29/17 Yes doxycycline Allergy Intermediate 06/29/17 Yes erythromycin base Allergy Intermediate 06/29/17 Yes iodine Allergy Intermediate 10/30/17 Yes lisinopril Allergy Intermediate 06/29/17 Yes metronidazole Allergy Intermediate 06/29/17 Yes tetracycline Allergy Intermediate 06/29/17 Yes Physical Exam Physical Exam PHYSICAL EXAM: CONSTITUTIONAL: Well developed, well nourished HEAD: normocephalic, atraumatic EENT: PERRL, EOMI. Conjunctivae normal color, sclerae non-icteric; moist mucous membranes. NECK: Supple, non-tender; no meningismus. LUNGS: There are globally diminished breath sounds in all lung salcido, without rales, wheezing, or rhonchi. Breathing is mildly labored. HEART: Regular rate and rhythm, no murmur CHEST: No deformity; non-tender ABDOMEN: The abdomen is soft, and non-tender, no masses or bruits. EXTREM: Normal ROM; no deformity, no calf tenderness. Normal pulses palpable in all extremities. There is no pedal edema. SKIN: No rash; no diaphoresis NEURO: Alert; normal speech and cognition; CN's grossly intact; strength grossly intact without focal deficit. BACK: No CVA TTP. Current Patient Data Vital Signs Vital Signs Date Time Temp Pulse Resp B/P (MAP) Pulse Ox O2 Delivery O2 Flow Rate FiO2 12/02/17 12:35 98.2 94 20 86 Room Air 4.0 Lab Results ABG shows pH 7.35/PCO2 73.0/PO2 56/bicarbonate 40.2. EKG EKG [Normal sinus rhythm a rate of 85 beats for minute, normal axis, normal intervals, nonspecific ST/T changes.] Radiology/Procedures Radiology/Procedures [PROCEDURE: PORTABLE CHEST 1V PORTABLE CHEST 1V Clinical Indication: SHORT OF AIR Comparison: AP chest November 04, 2017. Findings: Atherosclerotic thoracic aorta. Cardiac size is normal. Lungs are hyperexpanded. Lungs are clear. Upper lung emphysema. There is no pneumothorax. Chronic right inferior pleural thickening. Chronic right sixth rib deformity. IMPRESSION: 1. No acute cardiopulmonary process. 2. COPD. ] Course & Med Decision Making Course & Med Decision Making Pertinent Labs and Imaging studies reviewed. (See chart for details) [The patient's condition remained stable. She does appear improved at this time. Proximal saturation varies between 85 and 95%. Her ABG does appear to be somewhat close to her baseline. I I do believe that due to the patient's severe COPD, and intermittent hypoxia she does warrant hospitalization. I spoke with the hospitalist who agreed to admit the patient for further treatment. The patient was offered hospitalization at this facility or [place] and prefers to stay at this facility. Dragon Disclaimer Dragon Disclaimer This electronic medical record was generated, in whole or in part, using a voice recognition dictation system. Departure Departure: Impression: Primary Impression: COPD with acute exacerbation Disposition: ADMITTED INPATIENT Admitting Physician: Other (arlin) Condition: GUARDED Referrals: ZULEIKA RECINOS RN, GNP (PCP) HECTOR VALVERDE MD Dec 02, 2017 12:47
[2017-12-02 12:58] LABS: BASO # 0.1 x10^3/uL (0.0-0.2); BASO % 1 % (0-3); EOS # 0.2 x10^3/uL (0.0-0.7); EOS % 3 % (0-3); HEMATOCRIT 41.4 % (36.0-47.0); HEMOGLOBIN 13.8 g/dL (12.0-15.5); LYMPH # 1.1 x10^3/uL (1.0-4.8); LYMPH % 15 % (24-48); MEAN CORPUSCULAR HEMOGLOBIN 30 pg (25-35); MEAN CORPUSCULAR HGB CONC 33 g/dL (31-37); MEAN CORPUSCULAR VOLUME 90 fL (79-100); MONO # 0.5 x10^3/uL (0.0-1.1); MONO % 7 % (0-9); NEUT # 5.8 x10^3uL (1.8-7.7); NEUT % 75 % (31-73); PLATELET COUNT 299 x10^3/uL (140-400); RED BLOOD COUNT 4.63 x10^6/uL (3.50-5.40); RED CELL DISTRIBUTION WIDTH 13.3 % (11.5-14.5); WHITE BLOOD COUNT 7.7 x10^3/uL (4.0-11.0)
[2017-12-02 13:19] LABS: ALBUMIN 3.7 g/dL (3.4-5.0); CREATININE 0.5 mg/dL (0.6-1.0); GFR 126.3; POTASSIUM 4.4 mmol/L (3.5-5.1); TOTAL BILIRUBIN 0.4 mg/dL (0.2-1.0); TOTAL PROTEIN 7.3 g/dL (6.4-8.2)
--- NOTE | 2017-12-02 13:28 | EKG ---
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
--- NOTE | 2017-12-02 13:53 | RAD ---
PORTABLE CHEST 1V Clinical Indication: SHORT OF AIR Comparison: AP chest November 04, 2017. Findings: Atherosclerotic thoracic aorta. Cardiac size is normal. Lungs are hyperexpanded. Lungs are clear. Upper lung emphysema. There is no pneumothorax. Chronic right inferior pleural thickening. Chronic right sixth rib deformity. IMPRESSION: 1. No acute cardiopulmonary process. 2. COPD. Electronically signed by: Franki Alvarez MD (12/02/2017 1:50 PM) [id number]
[2017-12-02 13:59] LABS: BGAS PH 7.35 (7.35-7.45)
[2017-12-02 15:36] VITALS: BP 121/74
[2017-12-02 19:40] VITALS: BP 138/80
[2017-12-02] MEDS: methylPREDNISolone SOD SUCC PF 125 MG/2 ML VIAL. IV SCH (22:51)
[2017-12-02 23:16] VITALS: BP 173/76
[2017-12-03] MEDS ORDERED: IPRATRPIUM/ALBUTEROL 0.5/2.5MG 3 ML NEBU. ONE (05:19)
[2017-12-03] MEDS: IPRATRPIUM/ALBUTEROL 0.5/2.5MG 3 ML NEBU. NEB SCH ×4 (05:31→20:35)
[2017-12-03 06:21] VITALS: BP 127/81
[2017-12-03] MEDS: methylPREDNISolone SOD SUCC PF 125 MG/2 ML VIAL. IV SCH ×2 (06:35→14:00)
[2017-12-03] MEDS ORDERED: amLODIPine BESYLATE 5 MG TABLET PO SCH (09:00)
[2017-12-03 10:23] LABS: BGAS PH 7.4 (7.35-7.45)
[2017-12-03 11:09] VITALS: BP 133/71
--- NOTE | 2017-12-03 15:10 | PDOC1 ---
History of Present Illness History of Present Illness Patient is a 57-year-old female brought to the emergency department by family member who felt she was having worsening trouble breathing and possibly confusion. EMS was called to her home and she refuses treatment but did agreed to be transferred. On arrival to the emergency department her EKG chest x-ray and blood gases were all at her baseline. ED physician felt the patient should be observed overnight and she was admitted to the medical floor. She is well- known to many of the hospital staff from prior admissions and actually her condition appears better at this time than any prior ED or inpatient evaluation. Vitals have remained stable on her home O2 and I find her standing up in her room ambulating without O2 and no dyspnea. She states that she's feeling fine. She denies any complaints and would like to go home. Chief Complaint: SHORTNESS OF BREATH Allergies: Coded Allergies: Sulfa (Sulfonamide Antibiotics) (Verified Allergy, Intermediate, 06/29/17) cefaclor (Verified Allergy, Intermediate, 06/29/17) ciprofloxacin (Verified Allergy, Intermediate, 06/29/17) doxycycline (Verified Allergy, Intermediate, 06/29/17) erythromycin base (Verified Allergy, Intermediate, 06/29/17) iodine (Verified Allergy, Intermediate, 10/30/17) lisinopril (Verified Allergy, Intermediate, 06/29/17) metronidazole (Verified Allergy, Intermediate, 06/29/17) tetracycline (Verified Allergy, Intermediate, 06/29/17) Past Medical History Cardiac: CHF, HTN Pulmonary: COPD, Other (chronic respiratory failure uses home O2, cor pulmonale , pulmonary hypertension) Heme/Onc: Cancer (colon) Psych: Other (multiple psychiatric issues) Past Surgical History: Colon Resection Past Social History Smoke: 1 pack per day Alcohol: none Drugs: None Lives: with Family Domestic Violence: Neg Review of Systems Review Of Systems Fourteen system , review of systems has been reviewed. See HPI for pertinent positives and negative responses, other holloway all other systems are negative, non pertinent or non contributory Constitutional: No: Fever, Chills, Weakness ENT: No: Ear pain, Nose pain, Nose congestion Respiratory: YES: Other (she reports that her respiratory symptoms are at her baseline) Cardiovascular: No: Chest Pain, Palpitations, Paroxysmal Noc. Dyspnea, Edema Gastrointestinal: No: Nausea, Vomiting, Abdominal Pain Musculoskeletal: No: Gait Disturbance, Joint Pain, Joint Swelling SKIN: YES: Warm, Dry; No: No Rashes Neurological: No: Behavorial Changes, Confusion, Headaches, Impaired Coord/ balance Medications Current Medications Albuterol/ Ipratropium (Duoneb) 3 ml 1X ONCE NEB Last administered on at 13:35; Start 12/02/17 at 12:45; Stop 12/02/17 at 12:46; Status DC Methylprednisolone Sodium Succinate (SOLU-Medrol 125MG VIAL) 125 mg 1X ONCE IV Last administered on 12/02/17at 12:45; Start 12/02/17 at 12:45; Stop at 12:46; Status DC Sodium Chloride 1,000 ml @ 100 mls/hr Q10H IV Last administered on 12/02/17at 12:45; Start 12/02/17 at 12:45; Stop 12/02/17 at 22:44; Status DC Amlodipine Besylate (Norvasc) 5 mg DAILY PO Last administered on 12/03/17at 09: 24; Start 12/03/17 at 09:00 Albuterol/ Ipratropium (Duoneb) 3 ml RTQID NEB Last administered on 12/03/17at 11:30; Start 12/03/17 at 08:00 Methylprednisolone Sodium Succinate (SOLU-Medrol 125MG VIAL) 125 mg Q8HRS IV Last administered on 12/03/17at 06:35; Start 12/02/17 at 22:00; Stop 12/03/17 at 21:59 Albuterol/ Ipratropium (Duoneb) 3 ml STK-MED ONCE .ROUTE ; Start 12/03/17 at 05 :19; Stop 12/03/17 at 05:20; Status DC Active Scripts Active Amlodipine Besylate 5 Mg Tablet 5 Mg PO DAILY Exam Vital Signs Vital Signs Date Time Temp Pulse Resp B/P (MAP) Pulse Ox O2 Delivery O2 Flow Rate FiO2 12/03/17 11:30 96 Nasal Cannula 3.0 12/03/17 11:09 98.0 112 22 133/71 (91) General Appearance: Alert, Oriented X3, Cooperative HEENT: Atraumatic, PERRLA, EOMI Respiratory: Other (faint wheezes bilaterally with good air movement no respiratory distress) Heart: Normal S1, Normal S2, No murmurs Abdominal: Normal bowel sounds, Soft Extremities: No cyanosis, No edema Neuro: Normal gait, Normal speech, Normal tone Psych/Mental Status: Mental status NL, Mood NL Assessment/Plan Assessment/Plan Chronic respiratory failure Tobacco abuse Patient will be discharged home on her home medications and advised to follow- up with her doctor in 3-5 days for recheck. Encouraged to discontinue smoking. COURSE Allergies Coded Allergies Type Severity Reaction Last Updated Verified Sulfa (Sulfonamide Antibiotics) Allergy Intermediate 06/29/17 Yes cefaclor Allergy Intermediate 06/29/17 Yes ciprofloxacin Allergy Intermediate 06/29/17 Yes doxycycline Allergy Intermediate 06/29/17 Yes erythromycin base Allergy Intermediate 06/29/17 Yes iodine Allergy Intermediate 10/30/17 Yes lisinopril Allergy Intermediate 06/29/17 Yes metronidazole Allergy Intermediate 06/29/17 Yes tetracycline Allergy Intermediate 06/29/17 Yes Laboratory Tests Test 12/03/17 10:12 Blood Gas pH 7.40 (7.35-7.45) Blood Gas PCO2 61 mmHg (35-45) Blood Gas PO2 83 mmHg (80-100) Blood Gas HCO3 38 mmol/L (22-26) Arterial Bld O2 Saturation (Calc) 96 % (92-99) FiO2 32 % Current Medications Medications (Trade) Dose Ordered Sig/Flory Route PRN Reason Start Time Stop Time Status Last Admin Dose Admin Amlodipine Besylate (Norvasc) 5 mg DAILY PO 12/03/17 09:00 12/03/17 09:24 Albuterol/ Ipratropium (Duoneb) 3 ml RTQID NEB 12/03/17 08:00 12/03/17 11:30 Methylprednisolone Sodium Succinate (SOLU-Medrol 125MG VIAL) 125 mg Q8HRS IV 12/02/17 22:00 12/03/17 21:59 12/03/17 06:35 Albuterol/ Ipratropium (Duoneb) 3 ml STK-MED ONCE .ROUTE 12/03/17 05:19 12/03/17 05:20 DC I & O 12/03/17 00:00 Intake Total 1240 ml Balance 1240 ml Orders Procedure Category Date Status Time Admit Orders ADT 12/02/17 Transmitted Admission Screening CONS 12/02/17 Transmitted 18:11 Case Management CM1 12/03/17 Transmitted Referral 07:00 Rehab Screening (Pt, REHAB 12/03/[address], [address]) 07:00 Smoking Cessation RT 12/02/17 Complete 3-10 Min 18:11 Amlodipine Besylate PHA 12/03/17 In Process (Norvasc) 09:00 Ipratrpium/Albuterol PHA 12/03/17 In Process 0.5/2.5mg (Duoneb) 08:00 Airway Inhalation RT 12/02/17 Complete Treatment 20:45 Methylprednisolone PHA 12/02/17 In Process 125mg Vial (Solu-Medr 22:00 Arterial Blood Gas LAB 12/03/17 Complete 05:00 Ipratrpium/Albuterol PHA 12/03/17 Complete 0.5/2.5mg (Duoneb) 05:19 Airway Inhalation RT 12/03/17 Complete Treatment Vital Signs Date Time Temp Pulse Resp B/P (MAP) Pulse Ox O2 Delivery O2 Flow Rate FiO2 12/03/17 11:30 96 Nasal Cannula 3.0 12/03/17 11:09 98.0 112 22 133/71 (91) JENNIFER TURK DO Dec 03, 2017 15:10
[2017-12-03] MEDS ORDERED: IPRA3AMP29 NEB (15:17)
[2017-12-03] MEDS ORDERED: PRED20TA PO (15:17)
[2017-12-03 19:50] VITALS: BP 170/92
== END 2017-12-03 20:45 | disposition home health service (06) | DRG 191 ==
LOC: ER 12:22 → 1 SOUTH 15:01
PROVIDERS: ADMIT Neuromusculoskeletal Medicine & OMM; ATTEND Neuromusculoskeletal Medicine & OMM
DX: J44.1 Chronic obstructive pulmonary disease with (acute) exacerbation (principal); J96.11 Chronic respiratory failure with hypoxia; F17.200 Nicotine dependence, unspecified, uncomplicated; I11.0 Hypertensive heart disease with heart failure; I27.29 Other secondary pulmonary hypertension; I50.9 Heart failure, unspecified; Z91.19 Patient's noncompliance with other medical treatment and regimen; Z79.899 Other long term (current) drug therapy; Z88.2 Allergy status to sulfonamides; Z88.8 Allergy status to other drugs, medicaments and biological substances; Z88.1 Allergy status to other antibiotic agents; Z91.041 Radiographic dye allergy status; Z99.81 Dependence on supplemental oxygen; F17.210 Nicotine dependence, cigarettes, uncomplicated
CPT/HCPCS: 36415; 36600; 71045; 80053; 82803; 83880; 84484; 85025; 93005; 94640; 96361; 96374; 99406; J2930; J7620; 99285-25; J7030

== ENCOUNTER 2018-01-02 13:14 | Inpatient (IN) | payer MEDICARE, MEDICAID ==
[~2018-01-02] VITALS: Ht 157.5 cm; Wt 56.2 kg
[~2018-01-02 13:14] MED LIST changes: +IPRA3AMP29 NEB; +PRED20TA PO
[2018-01-02] MEDS ORDERED: IPRATRPIUM/ALBUTEROL 0.5/2.5MG 3 ML NEBU. NEB ONE ×2 (13:30→15:00)
[2018-01-02 14:17] LABS: BASO # 0.1 x10^3/uL (0.0-0.2); BASO % 1 % (0-3); EOS # 0.1 x10^3/uL (0.0-0.7); EOS % 2 % (0-3); HEMATOCRIT 40.2 % (36.0-47.0); HEMOGLOBIN 13.2 g/dL (12.0-15.5); LYMPH % 17 % (24-48); MEAN CORPUSCULAR HEMOGLOBIN 30 pg (25-35); MEAN CORPUSCULAR HGB CONC 33 g/dL (31-37); MEAN CORPUSCULAR VOLUME 91 fL (79-100); MONO # 0.3 x10^3/uL (0.0-1.1); MONO % 6 % (0-9); NEUT # 4.2 x10^3uL (1.8-7.7); NEUT % 74 % (31-73); PLATELET COUNT 269 x10^3/uL (140-400); RED BLOOD COUNT 4.41 x10^6/uL (3.50-5.40); RED CELL DISTRIBUTION WIDTH 13.7 % (11.5-14.5); WHITE BLOOD COUNT 5.7 x10^3/uL (4.0-11.0)
[2018-01-02 14:33] LABS: BGAS PH 7.27 (7.35-7.45)
--- NOTE | 2018-01-02 14:34 | RAD ---
Two-view chest 01/02/2018 CLINICAL INDICATION: Cough, pneumonia. COMPARISON: Chest 12/02/2017, 11/04/2017 FINDINGS: Examination is somewhat limited due to motion. Hyperexpansion of both lungs with prominence of the retrosternal clear space and flattening of the hemidiaphragms. Chronic bibasilar coarse interstitial opacities. IMPRESSION: Stable chest with emphysema and chronic interstitial prominence consistent with fibrosis. Electronically signed by: Pedro Luis Perrin MD (01/02/2018 2:30 PM) [facility]
--- NOTE | 2018-01-02 14:35 | PHYS DOC ---
Past History Past Medical History: Cancer, CHF, COPD, Hypertension Additional Past Medical Histor: pulmonary hypertension, cor pulmonale, noncompliance Past Surgical History: Cancer Surgery Smoking: Cigarettes Alcohol Use: None Drug Use: None Adult General Chief Complaint Chief Complaint: ALTERED MENTAL STATUS HPI HPI Patient is a 57 year old female who presents with altered mental status. Patient was brought in by EMS from home. Family reports decreased mental status. By report she has a prescription for prednisone that she has not filled to help with her COPD. Patient also reports that she is out of oxygen. She uses oxygen 24/7. Fingerstick glucose was in the normal range for EMS.[] Review of Systems Review of Systems Limited due to altered mental status All other systems were reviewed and found to be within normal limits, except as documented in this note. Current Medications Current Medications Current Medications Medications (Trade) Dose Ordered Sig/Flory Start Time Stop Time Status Last Admin Dose Admin Albuterol/ Ipratropium (Duoneb) 3 ml 1X ONCE 01/02/18 13:30 01/02/18 13:31 DC 01/02/18 13:24 3 ML Allergies Allergies Allergies Coded Allergies Type Severity Reaction Last Updated Verified Sulfa (Sulfonamide Antibiotics) Allergy Intermediate 06/29/17 Yes cefaclor Allergy Intermediate 06/29/17 Yes ciprofloxacin Allergy Intermediate 06/29/17 Yes doxycycline Allergy Intermediate 06/29/17 Yes erythromycin base Allergy Intermediate 06/29/17 Yes iodine Allergy Intermediate 10/30/17 Yes lisinopril Allergy Intermediate 06/29/17 Yes metronidazole Allergy Intermediate 06/29/17 Yes tetracycline Allergy Intermediate 06/29/17 Yes Physical Exam Physical Exam Constitutional: Well developed, well nourished, slow to respond [] HENT: Normocephalic, atraumatic, bilateral external ears normal, oropharynx moist, no oral exudates, nose normal. [] Eyes: PERRLA, EOMI, conjunctiva normal, no discharge. [] Neck: Normal range of motion, no tenderness, supple, no stridor. [] Cardiovascular:Heart rate regular rhythm, no murmur [] Lungs & Thorax: Significantly decreased breath sounds bilaterally, unable to initially auscultate rales, rhonchi, or wheezes[] Abdomen: Bowel sounds normal, soft, no tenderness, no masses, no pulsatile masses. [] Skin: Warm, dry, no erythema, no rash. [] Back: No tenderness, no CVA tenderness. [] Extremities: No tenderness, no cyanosis, no clubbing, ROM intact, no edema. [] Neurologic: Alert and oriented X 3, normal motor function, normal sensory function, no focal deficits noted. [] Psychologic: Affect normal, judgement normal, mood normal. [] Current Patient Data Lab Results Laboratory Tests Test 01/02/18 13:52 White Blood Count 5.7 x10^3/uL (4.0-11.0) Red Blood Count 4.41 x10^6/uL (3.50-5.40) Hemoglobin 13.2 g/dL (12.0-15.5) Hematocrit 40.2 % (36.0-47.0) Mean Corpuscular Volume 91 fL (79-100) Mean Corpuscular Hemoglobin 30 pg (25-35) Mean Corpuscular Hemoglobin Concent 33 g/dL (31-37) Red Cell Distribution Width 13.7 % (11.5-14.5) Platelet Count 269 x10^3/uL (140-400) Neutrophils (%) (Auto) 74 % (31-73) H Lymphocytes (%) (Auto) 17 % (24-48) L Monocytes (%) (Auto) 6 % (0-9) Eosinophils (%) (Auto) 2 % (0-3) Basophils (%) (Auto) 1 % (0-3) Neutrophils # (Auto) 4.2 x10^3uL (1.8-7.7) Lymphocytes # (Auto) 1.0 x10^3/uL (1.0-4.8) Monocytes # (Auto) 0.3 x10^3/uL (0.0-1.1) Eosinophils # (Auto) 0.1 x10^3/uL (0.0-0.7) Basophils # (Auto) 0.1 x10^3/uL (0.0-0.2) Prothrombin Time 9.8 SEC (9.4-11.4) Prothrombin Time INR 1.0 (0.9-1.1) EKG EKG EKG shows a sinus rhythm at 77 bpm, normal axis, QTC at 434 ms, no ST elevations.[] Radiology/Procedures Radiology/Procedures Chest x-ray IMPRESSION: Stable chest with emphysema and chronic interstitial prominence consistent with fibrosis.[] Course & Med Decision Making Course & Med Decision Making Pertinent Labs and Imaging studies reviewed. (See chart for details) ED course: Patient arrived, was placed in bed, in tolerated exam well. Patient received a breathing treatment without any significant improvement in breath sounds. With the return of the ABG attempted to place BiPAP on the patient. Patient refused, was argumentative about that treatment. Additional breathing treatments were administered. Consultation was made with Dr. Thompson who accepted the patient for admission. Medical decision making: No evidence of hypoglycemia, no evidence of pneumonia, believe this to be hypercapnic respiratory failure in a patient that is poorly compliant, demonstrated by not filling her recent prescriptions for steroids, along with refusing BiPAP as well as offered medical interventions to make it more tolerable.[] See Dr. Rendon chart for details. Pt. Admitted. Pt. comfortable on BiPap. Vitals stable. Pt. still awaiting transport up to hospital. [facility] unable to get Ambulance up the [place]. 1900 Pt. being transfer up [place] at 2000 hrs. Dragon Disclaimer Dragon Disclaimer This electronic medical record was generated, in whole or in part, using a voice recognition dictation system. Departure Departure: Impression: Primary Impression: COPD with acute exacerbation Additional Impressions: Altered mental status Acute on chronic respiratory failure with hypoxia and hypercapnia Disposition: ADMITTED INPATIENT Admitting Physician: Red Thompson Condition: GUARDED Referrals: ZULEIKA RECINOS RN, GNP (PCP) Problem Qualifiers Additional Impressions: Altered mental status Altered mental status type: somnolence Qualified Codes: R40.0 - Somnolence JIMMY RENDON DO Jan 02, 2018 14:35 ARGENTINA OSBORNE MD Jan 02, 2018 18:47
[2018-01-02] MEDS ORDERED: methylPREDNISolone SOD SUCC PF 125 MG/2 ML VIAL. IV ONE (15:00)
[2018-01-02] MEDS ORDERED: ACETAMINOPHEN 325 MG TABLET PO PRN (15:15)
[2018-01-02] MEDS ORDERED: ONDANSETRON PF 4 MG/2 ML VIAL. IV PRN (15:15)
[2018-01-02 15:41] LABS: BILIRUBIN,URINE NEG (NEG); CLARITY,URINE HAZY; COLOR,URINE YELLOW; GLUCOSE,URINE NEG (NEG); NITRITE,URINE NEG (NEG); UROBILINOGEN,URINE 0.2 mg/dL (0.2 mg/dL)
[2018-01-02 15:42] LABS: AMPHETAMINE/METHAMPHETAMINE NEG (NEG); BARBITURATES NEG (NEG); BENZODIAZEPINES NEG (NEG); CANNABINOIDS NEG (NEG); COCAINE NEG (NEG); METHADONE NEG (NEG); OPIATES NEG (NEG); PHENCYCLIDINE NEG (NEG)
[2018-01-02 15:44] LABS: BACTERIA,URINE 0 /HPF (0-FEW); SQUAMOUS EPITHELIAL CELL,UR MANY /LPF
[2018-01-02] MEDS: IPRATRPIUM/ALBUTEROL 0.5/2.5MG 3 ML NEBU. NEB SCH ×2 (16:00→20:48)
[2018-01-02 17:03] LABS: CALCIUM 8.7 mg/dL (8.5-10.1); CREATININE 0.4 mg/dL (0.6-1.0); GFR 163.4; MAGNESIUM 1.7 mg/dL (1.8-2.4); POTASSIUM 4.2 mmol/L (3.5-5.1)
--- NOTE | 2018-01-02 17:12 | EKG ---
[address] [address] Test Date: 2018-01-02 Test Time: 13:44:23 Pat Name: GARTH ROJAS Department: Room: Gender: F Staff Therapist: : 1960 Requested By: JIMMY MURRY Order Number: [id number] Reading MD: Andrew Barrow MD Measurements Intervals [place] Rate: 77 P: 77 MI: 118 QRS: 66 QRSD: 78 T: 79 QT: 382 QTc: 434 Interpretive Statements SINUS RHYTHM NON-SPECIFIC ST/T CHANGES Electronically Signed On 01-03-2018 8:28:51 WORKERS' COMPENSATION CLAIMS SUPERVISOR by Andrew Barrow MD
[2018-01-02 20:17] VITALS: BP 154/96
[2018-01-02] MEDS ORDERED: XOPENEX1.25 MG/3 IH (20:22)
[2018-01-03 00:56] VITALS: BP 144/87
[2018-01-03] MEDS: IPRATRPIUM/ALBUTEROL 0.5/2.5MG 3 ML NEBU. NEB SCH ×4 (05:43→15:39)
[2018-01-03 05:48] LABS: BGAS PH 7.43 (7.35-7.45)
[2018-01-03] MEDS ORDERED: methylPREDNISolone SOD SUCC PF 40 MG/ML VIAL. IV SCH (06:00)
[2018-01-03 06:05] VITALS: BP 155/80
[2018-01-03 06:36] LABS: BASO % 1 % (0-3); EOS % 0 % (0-3); HEMATOCRIT 37.6 % (36.0-47.0); HEMOGLOBIN 12.3 g/dL (12.0-15.5); LYMPH # 0.8 x10^3/uL (1.0-4.8); LYMPH % 14 % (24-48); MEAN CORPUSCULAR HEMOGLOBIN 30 pg (25-35); MEAN CORPUSCULAR HGB CONC 33 g/dL (31-37); MEAN CORPUSCULAR VOLUME 91 fL (79-100); MONO # 0.6 x10^3/uL (0.0-1.1); MONO % 11 % (0-9); NEUT # 4.4 x10^3uL (1.8-7.7); NEUT % 75 % (31-73); PLATELET COUNT 288 x10^3/uL (140-400); RED BLOOD COUNT 4.14 x10^6/uL (3.50-5.40); RED CELL DISTRIBUTION WIDTH 13.5 % (11.5-14.5); WHITE BLOOD COUNT 5.9 x10^3/uL (4.0-11.0)
[2018-01-03 06:51] LABS: ALBUMIN 3.3 g/dL (3.4-5.0); CALCIUM 8.7 mg/dL (8.5-10.1); CREATININE 0.6 mg/dL (0.6-1.0); GFR 102.3; POTASSIUM 4.2 mmol/L (3.5-5.1); TOTAL BILIRUBIN 0.4 mg/dL (0.2-1.0); TOTAL PROTEIN 6.5 g/dL (6.4-8.2)
[2018-01-03 11:00] VITALS: BP 156/83
--- NOTE | 2018-01-03 12:28 | HP ---
ADMIT DATE: 01/03/2018 HISTORY OF PRESENT ILLNESS: The patient is a 57-year-old female patient, who was brought to the Emergency Room by emergency medical service personnel from home with altered mental status. Her family stated that the patient was noted to be lethargic. She apparently has a prescription for prednisone that she has not felt. She also reports that she is out of oxygen that she uses for 24 hours a day, 7 days a week and her blood sugar was within normal range when it was checked at home. She was extensively investigated in the Emergency Room. Her lab work showed no leukocytosis and her chemistry showed elevated sodium bicarbonate; however, her blood gases showed that her pH was 7.27, pCO2 of 107, pO2 of 95, bicarbonate 49 and oxygen saturation was 95% on FiO2 of 28%. Her prothrombin time INR was normal as well as urinalysis. Her urine toxicology screen was essentially negative. Her chest x-ray showed that the patient has stable chest with emphysema and chronic interstitial prominence consistent with fibrosis. The patient was given Solu-Medrol 125 mg IV together with breathing treatment, started on BiPAP machine, was admitted for further evaluation and treatment. PAST MEDICAL HISTORY: Significant for chronic obstructive pulmonary disease, chronic hypercapnic hypoxic respiratory failure, pulmonary hypertension, tobacco use disorder, questionable borderline personality disorder and severe debility. PAST SURGICAL HISTORY: Unremarkable. ALLERGIES: The patient has multiple allergies. She claims that she is allergic to SULFA, CEFACLOR, CIPROFLOXACIN, DOXYCYCLINE, ERYTHROMYCIN, IODINE, LISINOPRIL, METRONIDAZOLE, and TETRACYCLINE. FAMILY HISTORY: Unremarkable. SOCIAL HISTORY: She lives at home with her daughter. She continues to smoke. She apparently smokes a pack a day, although she claims smokes only a few cigarettes a day. She does not drink alcohol or use any recreational drugs. REVIEW OF SYSTEMS: As per history of present illness. PHYSICAL EXAMINATION: GENERAL: On examining her on arrival, she was clearly tachypneic, using her accessory muscles. There was no pallor, jaundice, cyanosis, or thyromegaly. No jugular venous distension. No lower limb edema. VITAL SIGNS: On arrival to the Emergency Room; her heart rate was 81, blood pressure 126/81, temperature was 97.7, respiratory rate was 20, and oxygen saturation was 95% on 6 liters of oxygen. HEAD, EYES, EARS, NOSE AND THROAT: Showed normocephalic, atraumatic. NECK: Supple. HEART: Showed normal first and second heart sounds. No gallop, rub or murmur. CHEST: Shows central trachea, equally reduced expansion, reduced air entry, vesicular breath sounds. I could not appreciate any crepitation or rhonchi. ABDOMEN: Slightly distended, soft, nontender. NEUROLOGIC: She was awake, alert, responding appropriately. All cranial nerves intact. She moves extremities without difficulty. LABORATORY DATA: While in the Emergency Room, she had lab work done, which showed a white cell count 5700, hemoglobin 13, hematocrit 40, MCV 91, and platelet count of 269,000. Her chemistry showed serum sodium of 136, potassium 4.2, chloride 93, bicarbonate 44, anion gap of 1, BUN of 15, creatinine 0.4, estimated GFR was 163 mL per minute. Her glucose was 93, calcium was 8.7, magnesium was 1.7. Total bilirubin, AST, ALT, alkaline phosphatase were normal. Her ammonia was 10. Her beta natriuretic peptide was 451 and her total protein was 6.5, albumin was 3.3. Her prothrombin time was 9.8, INR of 1. Urinalysis was essentially unremarkable. It was negative for nitrite, negative for leukocyte esterase, 1-2 rbc's, 5-10 wbc's and no bacteria and her toxic screen was negative. Her chest x-ray showed that the patient has hyperexpansion of both lungs with prominence of retrosternal clear space and flattening of the hemidiaphragm and chronic bibasilar coarse interstitial opacities consistent with emphysema and chronic interstitial fibrosis. She was started on Solu-Medrol 125 mg once a day. Continued on BiPAP machine and was admitted to follow her blood gases closely and continue with steroids and all other inhalers and all other medication. OSMAR MARS MD DR: RICCO/gigi JOB#: [id number] / [id number]
[2018-01-03 14:33] VITALS: BP 161/90
[2018-01-03 19:21] VITALS: BP 160/92
[2018-01-03] MEDS: methylPREDNISolone SOD SUCC PF 40 MG/ML VIAL. IV SCH (19:59)
[2018-01-04 00:37] VITALS: BP 174/82
[2018-01-04 05:11] VITALS: BP 174/93
[2018-01-04 05:20] LABS: BGAS PH 7.38 (7.35-7.45)
[2018-01-04] MEDS: methylPREDNISolone SOD SUCC PF 40 MG/ML VIAL. IV SCH ×2 (09:00→20:35)
[2018-01-04 10:31] VITALS: BP 162/96
[2018-01-04] MEDS: IPRATRPIUM/ALBUTEROL 0.5/2.5MG 3 ML NEBU. NEB SCH ×3 (12:00→21:09)
[2018-01-04 15:26] VITALS: BP 169/90
[2018-01-04 19:13] VITALS: BP 151/91
--- NOTE | 2018-01-04 21:54 | PN ---
DATE: 01/04/2018 SUBJECTIVE: The patient is sitting on the edge of the bed comfortably, in no apparent distress. She denied any chest pain, shortness of breath. Her blood gases are actually showed a compensated chronic respiratory failure, probably this where she normally lives in her partial pressure of carbon dioxide between 60-70. OBJECTIVE: GENERAL: On examining her, she looked well and was clearly in no apparent respiratory distress. No pallor, jaundice, cyanosis, or thyromegaly. No jugular venous distension. No limb edema. VITAL SIGNS: Her heart rate was 101, blood pressure was 160/96, temperature was 98.1, respiratory rate 22 and oxygen saturation was 95% on 3 liters of oxygen by nasal cannula. HEAD, EYES, EARS, NOSE AND THROAT: Showed normocephalic, atraumatic. NECK: Supple. HEART: Showed normal first and second heart sounds with no gallop, rub or murmur. CHEST: Showed central trachea, equally reduced expansion, reduced air entry, vesicular breath sounds. I could not really appreciate any crepitation or rhonchi. ABDOMEN: Soft, nondistended, nontender. NEUROLOGIC: She was awake, alert, responding appropriately. All cranial nerves intact. She moves extremities without difficulty. She is able to ambulate with a walker. LABORATORY DATA: Her blood gases this morning showed a pH of 7.38, pCO2 of 68, pO2 of 77, bicarbonate 40, and oxygen saturation was 95% on FiO2 of 32%, white cell count was 5900, hemoglobin 12, hematocrit 37, MCV was 91, and platelet count 288,000. Her prothrombin time and INR are within normal range. ASSESSMENT: 1. Acute hypoxic hypercapnic respiratory failure, resolving. 2. Chronic obstructive pulmonary disease exacerbation. 3. Hypertension. PLAN: My plan is to continue with the steroids and inhalers for the time being. She probably can be discharged home tomorrow. OSMAR MARS MD DR: RICCO/gigi JOB#: [id number] / [id number]
[2018-01-04 23:05] VITALS: BP 156/86
[2018-01-05] MEDS: IPRATRPIUM/ALBUTEROL 0.5/2.5MG 3 ML NEBU. NEB SCH ×3 (05:54→15:54)
[2018-01-05 06:36] VITALS: BP 162/94
[2018-01-05 08:33] LABS: ALBUMIN 3.2 g/dL (3.4-5.0); CALCIUM 8.7 mg/dL (8.5-10.1); CREATININE 0.5 mg/dL (0.6-1.0); GFR 126.3; POTASSIUM 4.1 mmol/L (3.5-5.1); TOTAL BILIRUBIN 0.2 mg/dL (0.2-1.0); TOTAL PROTEIN 6.5 g/dL (6.4-8.2)
[2018-01-05 08:37] LABS: HEMATOCRIT 40.1 % (36.0-47.0); HEMOGLOBIN 13.1 g/dL (12.0-15.5); RED BLOOD COUNT 4.41 x10^6/uL (3.50-5.40); RED CELL DISTRIBUTION WIDTH 13.7 % (11.5-14.5); WHITE BLOOD COUNT 8.2 x10^3/uL (4.0-11.0)
[2018-01-05] MEDS: methylPREDNISolone SOD SUCC PF 40 MG/ML VIAL. IV SCH (09:00)
[2018-01-05 10:54] VITALS: BP 145/83
--- NOTE | 2018-01-05 13:16 | DS ---
DATE OF DISCHARGE: 01/05/2018 HOSPITAL COURSE: The patient is sitting on the edge of the bed, eating her lunch comfortably, in no apparent distress. On questioning her, she denied any complaint. The nursing staff did not voice any concern and stated that she had an uneventful night. PHYSICAL EXAMINATION: GENERAL: On examining her, there was no pallor, jaundice, cyanosis, or thyromegaly. No jugular venous distension. No limb edema. VITAL SIGNS: Her heart rate was 94, blood pressure 145/83, temperature was 98.7, respiratory rate 22, and oxygen saturation was 97%, 2-1/2 liters of oxygen. HEAD, EYES, EARS, NOSE AND THROAT: Normocephalic, atraumatic. NECK: Supple. HEART: Showed distant first and second heart sounds with no gallop, rub or murmur. CHEST: Shows central trachea, equally reduced expansion, reduced air entry, vesicular breath sounds. I could not appreciate any crepitation or rhonchi. ABDOMEN: Slightly distended, soft, nontender. NEUROLOGIC: She is awake, alert, responding appropriately. Cranial nerves are intact. She moves extremities without difficulty. Her intake over the last 24 hours was 720, no output was recorded. LABORATORY DATA: Her lab work this morning showed a white cell count of 8200, hemoglobin 13, hematocrit 40, MCV 91, and platelet count 303,000. Serum sodium was 133, potassium 4.1, chloride 93, bicarbonate 37, anion gap of 3, BUN 9, creatinine 0.5, estimated GFR was 126 mL per minute. Her glucose 120, calcium was 8.7. Total bilirubin, AST, ALT, alkaline phosphatase were normal. Total protein was 6.5, albumin was 3.2. Her blood gases as of yesterday showed a pH of 7.38, pCO2 of 68, pO2 of 77, bicarbonate of 40 and oxygen saturation was 95%. DISCHARGE MEDICATIONS: She will be discharged home to continue on a tapering course of steroids as well as albuterol, Atrovent and oxygen. She will be discharged home with home health. FINAL DISCHARGE DIAGNOSES: 1. [id number] hypoxic hypercapnic respiratory failure. 2. Chronic obstructive pulmonary disease exacerbation. 3. Hypertension. OSMAR MARS MD DR: RICCO/gigi JOB#: [id number] / [id number]
== END 2018-01-05 18:30 | disposition home or self-care (01) | DRG 189 ==
LOC: ER 13:14 → 1 SOUTH 17:43
PROVIDERS: ADMIT Internal Medicine; ATTEND Internal Medicine
DX: J96.21 Acute and chronic respiratory failure with hypoxia (principal); J44.1 Chronic obstructive pulmonary disease with (acute) exacerbation; I11.0 Hypertensive heart disease with heart failure; F17.210 Nicotine dependence, cigarettes, uncomplicated; I50.9 Heart failure, unspecified; J96.22 Acute and chronic respiratory failure with hypercapnia; Z91.19 Patient's noncompliance with other medical treatment and regimen; Z88.2 Allergy status to sulfonamides; Z88.8 Allergy status to other drugs, medicaments and biological substances; Z79.899 Other long term (current) drug therapy; Z88.1 Allergy status to other antibiotic agents; Z91.041 Radiographic dye allergy status
CPT/HCPCS: 36415; 36600; 71046; 80048; 80053; 80307; 81001; 82140; 82803; 83735; 83880; 84484; 85025; 85027; 85610; 87040; 87086; 87186; 93005; 94640; 94660; 96374; J2920; J2930; J7620; 99285-25

== ENCOUNTER 2018-02-01 21:51 | Inpatient (IN) | payer MEDICARE, MEDICAID ==
[~2018-02-01] VITALS: Ht 157.5 cm; Wt 54.9 kg
[~2018-02-01 21:51] MED LIST changes: +XOPENEX1.25 MG/3 IH
[2018-02-01] MEDS ORDERED: IPRATRPIUM/ALBUTEROL 0.5/2.5MG 3 ML NEBU. ONE (22:00)
--- NOTE | 2018-02-01 22:11 | PHYS DOC ---
Past History Past Medical History: Cancer, CHF, COPD, Hypertension Additional Past Medical Histor: pulmonary hypertension, cor pulmonale, noncompliance Past Surgical History: Cancer Surgery Smoking: Cigarettes Alcohol Use: None Drug Use: None Adult General Chief Complaint Chief Complaint: SHORTNESS OF BREATH [facility] HPI 57-year-old female presents via EMS with shortness of breath. The patient's daughter called EMS. She was reported to have an oxygen saturation in the 60s at home. EMS found her to be at 90% on 6 L at home. Patient is on chronic oxygen therapy. The patient was just discharged from another local hospital on Wednesday, 2 days ago. She did not fill her prescriptions due to the holiday. Her daughter tells me that the only discharge medication was for hypertension. After the patient got home she was doing okay on her 2 L of oxygen yesterday. She started increasing her oxygen demand today. There are some confusion as to whether or not the patient's ankle swelling is worse or the same as usual. Patient has not had fever or chills. Review of Systems Review of Systems Constitutional: Denies fever or chills [] Eyes: Denies change in visual acuity, redness, or eye pain [] HENT: Denies nasal congestion or sore throat [] Respiratory: Shortness of breath [] Cardiovascular: No additional information not addressed in HPI [] GI: Denies abdominal pain, nausea, vomiting, bloody stools or diarrhea [] : Denies dysuria or hematuria [] Musculoskeletal: Denies back pain or joint pain [] Integument: Denies rash or skin lesions [] Neurologic: Denies headache, focal weakness or sensory changes [] Endocrine: Denies polyuria or polydipsia [] All other systems were reviewed and found to be within normal limits, except as documented in this note. Allergies Allergies Allergies Coded Allergies Type Severity Reaction Last Updated Verified Sulfa (Sulfonamide Antibiotics) Allergy Intermediate 06/29/17 Yes cefaclor Allergy Intermediate 06/29/17 Yes ciprofloxacin Allergy Intermediate 06/29/17 Yes doxycycline Allergy Intermediate 06/29/17 Yes erythromycin base Allergy Intermediate 06/29/17 Yes iodine Allergy Intermediate 10/30/17 Yes lisinopril Allergy Intermediate 06/29/17 Yes metronidazole Allergy Intermediate 06/29/17 Yes tetracycline Allergy Intermediate 06/29/17 Yes Physical Exam Physical Exam Constitutional: Well developed, well nourished, moderate acute distress. [] HENT: Normocephalic, atraumatic, bilateral external ears normal, oropharynx moist, no oral exudates, nose normal. [] Eyes: PERRLA, EOMI, conjunctiva normal, no discharge. [] Neck: Normal range of motion, no tenderness, supple, no stridor. [] Cardiovascular:Heart rate regular rhythm, no murmur [] Lungs & Thorax: Bilateral breath sounds with diffuse wheezing and moderate prolonged expiratory phase[] Abdomen: Bowel sounds normal, soft, no tenderness, no masses, no pulsatile masses. [] Skin: Warm, dry, no erythema, no rash. [] Back: No tenderness, no CVA tenderness. [] Extremities: No tenderness, no cyanosis, no clubbing, ROM intact, no edema. [] Neurologic: Alert and oriented X 3, normal motor function, normal sensory function, no focal deficits noted. [] Psychologic: Affect normal, judgement normal, mood anxious. [] EKG EKG [] Radiology/Procedures Radiology/Procedures [] Impressions: AP chest. HISTORY: Short of breath AP view was taken of the chest. Lungs are free of infiltrates. Heart is upper normal in size. There is no effusion. There's been a mild improvement compared to the study from January 02. IMPRESSION: 1. No acute infiltrates. Electronically signed by: Cecelia Park MD (02/01/2018 10:51 PM) [facility] DICTATED AND SIGNED BY: CECELIA PARK MD DATE: 02/01/18 2259 CC: ALICIA ARAGON DO; ZULEIKA RECINOS RN, GNP Course & Med Decision Making Course & Med Decision Making Pertinent Labs and Imaging studies reviewed. (See chart for details) The patient was given a DuoNeb treatment as soon as she arrived in the emergency room as well as oxygen. We were able to quickly de-escalate her oxygen therapy to 3 L after breathing treatment. She does have diffuse, bilateral wheezing. I have given her 125 of Solu-Medrol. Her labs are significant for an elevated white count. The patient was getting steroids during her previous admissions to this is likely the cause. Her chest x-ray is a for acute findings. Her labs are pending. The patient's labs have some anomalies consistent with COPD patients. See results for more details. The patient is down to 2-1/2 L of oxygen. She was given a little Ativan by EMS and is now quite calm. Further discussion with the daughter reveals that is possible that the patient's oxygen concentrator not working appropriately. It was set at 4+ liters at home and the patient was in distress. I will admit the patient to the hospital for COPD exacerbation. I discussed the patient with Dr. Thompson and he accepted the patient for admission. [] Dragon Disclaimer Dragon Disclaimer This electronic medical record was generated, in whole or in part, using a voice recognition dictation system. Departure Departure: Referrals: ZULEIKA RECINOS RN, GNP (PCP) ALICIA ARAGON DO Feb 01, 2018 22:11
[2018-02-01 22:17] LABS: BASO # 0.1 x10^3/uL (0.0-0.2); BASO % 1 % (0-3); EOS # 0.1 x10^3/uL (0.0-0.7); EOS % 1 % (0-3); HEMATOCRIT 38.6 % (36.0-47.0); HEMOGLOBIN 12.6 g/dL (12.0-15.5); LYMPH # 0.5 x10^3/uL (1.0-4.8); LYMPH % 3 % (24-48); MEAN CORPUSCULAR HEMOGLOBIN 29 pg (25-35); MEAN CORPUSCULAR HGB CONC 33 g/dL (31-37); MEAN CORPUSCULAR VOLUME 90 fL (79-100); MONO # 0.9 x10^3/uL (0.0-1.1); MONO % 6 % (0-9); NEUT # 14.2 x10^3uL (1.8-7.7); NEUT % 90 % (31-73); PLATELET COUNT 325 x10^3/uL (140-400); RED BLOOD COUNT 4.29 x10^6/uL (3.50-5.40); RED CELL DISTRIBUTION WIDTH 13.9 % (11.5-14.5); WHITE BLOOD COUNT 15.8 x10^3/uL (4.0-11.0)
[2018-02-01] MEDS ORDERED: IPRATRPIUM/ALBUTEROL 0.5/2.5MG 3 ML NEBU. NEB ONE (22:30)
[2018-02-01] MEDS ORDERED: methylPREDNISolone SOD SUCC PF 125 MG/2 ML VIAL. IV ONE (22:30)
[2018-02-01] MEDS ORDERED: ONDANSETRON PF 4 MG/2 ML VIAL. IV ONE (22:30)
[2018-02-01 22:36] LABS: ALBUMIN 3.4 g/dL (3.4-5.0); CALCIUM 8.5 mg/dL (8.5-10.1); CREATININE 0.3 mg/dL (0.6-1.0); GFR 227.7; POTASSIUM 4.2 mmol/L (3.5-5.1); TOTAL BILIRUBIN 0.3 mg/dL (0.2-1.0); TOTAL PROTEIN 6.9 g/dL (6.4-8.2)
--- NOTE | 2018-02-01 22:55 | RAD ---
AP chest. HISTORY: Short of breath AP view was taken of the chest. Lungs are free of infiltrates. Heart is upper normal in size. There is no effusion. There's been a mild improvement compared to the study from January 02. IMPRESSION: 1. No acute infiltrates. Electronically signed by: [place] MD (02/01/2018 10:51 PM) [facility]
[2018-02-01 23:03] LABS: % BANDS 8 % (0-9); % LYMPHS 3 % (24-48); % SEGS 89 % (35-66); PLT ESTIMATE ADEQUATE (ADEQUATE)
[2018-02-01] MEDS ORDERED: ONDANSETRON PF 4 MG/2 ML VIAL. IV PRN (23:30)
--- NOTE | 2018-02-02 00:15 | NUR ---
The patient, GARTH ROJAS, 57 y/o, F admitted by OSMAR MARS MD, for COPD exacerbation. Pt arrived on unit at approximately 2355 on [id number] via stretcher, accompanied by EMS personnel and CHEPE Moe. Pt had belongings in two plastic bags, one green, one white. Pt also had cell phone and earrings (see chart for additional information). Pt SpO2 initially 90% on 2L NC, so O2 increased to 3L NC and pt SpO2 increased to 94-95%. Pt tachycardic at approx 110 bpm. All other VS WNL (see chart). Pt drowsy during initial assessment, arousable to light touch/name. Pt able to answer some questions but drifted to sleep during conversation multiple times. Pt received 1mg Ativan during transport from home shared with daughter to ED, arriving at ED at approx 2145. Pt otherwise A&Ox3. Pt has spastic movement in BUE. Pt has patent 20g to R wrist, locked. Pt was given written information regarding hospital policies, unit procedures and contact persons. Valuables were checked, documented and remain with pt. Will continue to monitor. Axel Jiménez RN
[2018-02-02 00:20] VITALS: BP 112/66
[2018-02-02] MEDS ORDERED: AMLO2.5T3 PO (00:42)
[2018-02-02] MEDS ORDERED: PANT40TA5 PO (00:42)
--- NOTE | 2018-02-02 02:40 | NUR ---
Spoke with patient in the ER about smoking. She said she had plenty of handouts, from us, at home and did not need anymore.
[2018-02-02] MEDS ORDERED: IPRATRPIUM/ALBUTEROL 0.5/2.5MG 3 ML NEBU. ONE (04:39)
[2018-02-02] MEDS: IPRATRPIUM/ALBUTEROL 0.5/2.5MG 3 ML NEBU. NEB SCH ×3 (05:17→15:54)
--- NOTE | 2018-02-02 05:23 | NUR ---
Patient won't put treatment in mouth. She wants daughter to bring xopenex from home.
--- NOTE | 2018-02-02 05:30 | NUR ---
Decreased SpO2 At approx 0515, pt was heard calling "I need help." Amy, LOG CHIPPER OPERATOR, and this nurse went into pt's room. Pt was visibly upset and uncomfortable. Pt had had an episode of urinary incontinence. This nurse and Amy began changing pt, and this nurse asked Amy to get VS machine to check pt's SpO2. SpO2 was between 82-85% on 3, then 4L NC. Neyda and Liberty, RNs, called into room to assist. Kellen, RT, called as well. SpO2 checked again on standalone device and found to be 92%. Pt assisted to bedside commode and bed and clothing changed. When Kellen arrived, she gave pt scheduled RT treatment. Pt refused at first, stating "this treatment makes me worse, I need my Xopenex from home." Pt eventually took part of treatment and her O2 and comfort improved. Pt is currently on 3L NC, asleep, non-labored breathing. Will continue to monitor. Axel Jiménez RN
[2018-02-02 05:55] VITALS: BP 144/55
[2018-02-02 10:56] VITALS: BP 93/55
--- NOTE | 2018-02-02 11:37 | NUR ---
PT sitting on side of bed in tri pod positions. PT sob with exertion. Daughter said pt was at [facility] and diagnosed with End stage lung disease. Daughter still struggling with patient at home. PT will not eat food in house because suspicious of food and drinks. When asking patient questions she gives round about answers and excuses but no definite answer. When asked about her home life patient said she gets along with her family fine. Family dynamics have been going on for a long time. Every patient is admitted the family is struggling with caring for the patient at home, however, patient refuses to be placed in facility. Jason MO
[2018-02-02] MEDS ORDERED: ALBUTEROL SULFATE 2.5 MG/3 ML NEBU. NEB PRN (13:15)
[2018-02-02 16:00] VITALS: BP 149/66
[2018-02-02 16:07] LABS: BGAS PH 7.31 (7.35-7.45)
--- NOTE | 2018-02-02 17:51 | HP ---
ADMIT DATE: 02/02/2018 HISTORY OF PRESENT ILLNESS: The patient is a 57-year-old female patient who came to the Emergency Room with shortness of breath and the patient's daughter called the emergency medical service personnel as she reported to have an oxygen saturation of only 68 at home. The Emergency medical service personnel found her to be at 90% on 6 liters at home. She is supposed to be on oxygen. She was just discharged from [facility] on Wednesday, 2 days ago. She apparently did not fill her prescription due to her holiday. Due to holiday, her daughter tells me that the only discharge medication was for hypertension. After the patient got home, she was doing okay on her 3 liters of oxygen. Yesterday, she started increasing her oxygen demand today and there are some confusion as to whether or not the patient's ankle swelling is worse or the same as usual. She denied any chills, rigors, or fever, denied any chest pain. She was extensively investigated in the Emergency Room. Her lab work showed a white cell count of 15,800. Her chemistry showed that she has hyponatremia and her chest x-ray showed that the chest showed lungs are free of infiltrate, heart is upper normal in size. There is no effusion. There has been mild improvement compared to study from 01/02/2018. The patient was admitted with diagnosis of COPD exacerbation. Unfortunately, they did not do any blood gases. By the time I saw her, her oxygen saturation was 97% on 2 liters of oxygen by nasal cannula; however, she was prominent, flapping tremors, and we did blood gases showed a pH of 7.31, pCO2 of 95, pO2 of 83, bicarbonate of 48 and oxygen saturation was 94% on FiO2 of 32%. I have had a lengthy discussion with her as to where we go further from here because she has to be on BiPAP machine intubated, otherwise her life expectancy is going to be very short and I actually spoke with our briefcase sewer to consider home Trilogy with nasal mask only to the right for her tomorrow. PAST MEDICAL HISTORY: Her past medical history is significant for chronic obstructive pulmonary disease, chronic hypercapnic hypoxic respiratory failure, pulmonary hypertension, tobacco use disorder, questionable borderline personality disorder and severe debility as well as hypertension. PAST SURGICAL HISTORY: Unremarkable. ALLERGIES: The patient has multiple allergies. She claims she is ALLERGIC TO SULFA, CEFACLOR, CIPROFLOXACIN, DOXYCYCLINE, ERYTHROMYCIN, IODINE, LISINOPRIL, METRONIDAZOLE, and TETRACYCLINE. FAMILY HISTORY: Unremarkable. SOCIAL HISTORY: She lives at home with her daughter. She continues to smoke. She apparently smokes a pack a day, although she claims she smokes only a few cigarettes a day. She does not drink alcohol or use any recreational drugs. REVIEW OF SYSTEMS: As per history of present illness. MEDICATIONS: She is currently on following medications: She is on Xopenex 1.25 mg inhaler 4 times a day, amlodipine 2.5 mg once a day, and Protonix 40 mg daily. PHYSICAL EXAMINATION: GENERAL: On arrival to the Emergency Room, the patient was clearly tachypneic. There was no pallor, jaundice, cyanosis, or thyromegaly. No jugular venous distension. No lower limb edema. VITAL SIGNS: Her heart rate was 116, blood pressure was 93/55, temperature was 98, respiratory rate was 26, and oxygen saturation was 88% on 3 liters of oxygen on arrival. HEENT: Examination of the head, eyes, ears, nose and throat showed normocephalic, atraumatic. NECK: Supple. HEART: Showed normal first and second heart sounds. No gallop, rub or murmur. CHEST: Clear to auscultation. No crepitation or rhonchi. ABDOMEN: Distended, soft, nontender. NEUROLOGIC: She was awake, alert, responding appropriately. All her cranial nerves are intact. EXTREMITIES: She moves extremities without difficulty. She ambulates without assistance or assistive devices. LABORATORY DATA: Her lab work showed a white cell count of 15,800, hemoglobin 12.6, hematocrit 38.6, MCV was 90 and platelet count of 320. Her chemistry showed serum sodium of 129, potassium 4.2, chloride 86, bicarbonate 42, anion gap of 1, BUN 6, creatinine 0.3, estimated GFR was 227 mL per minute. Her glucose was 147, calcium was 8.5. Total bilirubin, AST, ALT, alkaline phosphatase were normal. Total protein was 6.9, albumin 3.7. Her blood gases showed a pH of 7.31, a pCO2 of 95, pO2 83, bicarbonate 48, oxygen saturation was 94% on FiO2 of 32%. ASSESSMENT AND PLAN: So, in summary, this is a 57-year-old female patient was admitted with acute hypercapnic hypoxic respiratory failure, chronic obstructive pulmonary disease exacerbation. The patient was started on BiPAP machine ____ I have also consulted our hospital social worker to see if she can be qualified for home Trilogy with we will try nasal mask instead of the facial mask to see whether she can tolerate that. I explained to the patient that this is not a one treatment that will solve her problem. It is a longstanding problem because she has severe damage to her lungs and that if she is not compliant, she may not be around for long. OSMAR MARS MD DR: RICCO/gigi JOB#: [id number] / [id number]
--- NOTE | 2018-02-02 18:15 | NUR ---
Pt refused to keep bi-pap on. Pt educated on risks of not wearing it. Pt continues to refuse.
[2018-02-02] MEDS ORDERED: IPRATRPIUM/ALBUTEROL 0.5/2.5MG 3 ML NEBU. NEB SCH (20:00)
[2018-02-02 20:15] VITALS: BP 107/59
--- NOTE | 2018-02-02 20:40 | NUR ---
Pt transferring to [facility] - ICU room 103. Report called to CHEPE Avendaño. DC packet printed and given to EMS. Pt given RT treatment just prior to transport. Pt refusing all of cares and medications at this time. Pt education given but still non-expecting of POC.
[2018-02-02] MEDS ORDERED: HEPARIN for SUB-Q USE 5,000 UNIT/ML VIAL. SQ SCH (22:00)
[2018-02-02] MEDS ORDERED: methylPREDNISolone SOD SUCC PF 40 MG/ML VIAL. IV SCH (22:00)
== END 2018-02-02 21:00 | disposition short-term general hospital (02) | DRG 189 ==
LOC: ER 21:51 → 1 SOUTH 23:20
PROVIDERS: ADMIT Internal Medicine; ATTEND Internal Medicine
PROC: 5A09357 Assistance with Respiratory Ventilation, Less than 24 Consecutive Hours, Continuous Positive Airway Pressure (ICD-10-PCS; principal; 2018-02-02)
DX: J96.21 Acute and chronic respiratory failure with hypoxia (principal); J44.1 Chronic obstructive pulmonary disease with (acute) exacerbation; E87.1 Hypo-osmolality and hyponatremia; J96.22 Acute and chronic respiratory failure with hypercapnia; F17.210 Nicotine dependence, cigarettes, uncomplicated; I11.0 Hypertensive heart disease with heart failure; I27.29 Other secondary pulmonary hypertension; I27.81 Cor pulmonale (chronic); I50.9 Heart failure, unspecified; Z91.19 Patient's noncompliance with other medical treatment and regimen; Z99.81 Dependence on supplemental oxygen; Z88.2 Allergy status to sulfonamides; Z88.8 Allergy status to other drugs, medicaments and biological substances
CPT/HCPCS: 36415; 71045; 80053; 82803; 83880; 85007; 85025; 94640; 94660; 94760; 96374; 96375; 99406; J2405; J2930; J7620; 99285-25

== ENCOUNTER 2018-05-28 21:50 | Emergency (ER) | payer MEDICARE, MEDICAID ==
[~2018-05-28] VITALS: Ht 157.5 cm; Wt 53.5 kg
[~2018-05-28 21:50] MED LIST changes: +AMLO2.5T5 PO; +AMLO5TAB10 PO; -AMLO5TAB7 PO; +PANT40TA5 PO
--- NOTE | 2018-05-28 21:55 | ED.ADGEN ---
Past History Past Medical History: Cancer, CHF, COPD, High Cholesterol, Hypertension Additional Past Medical Histor: pulmonary hypertension, cor pulmonale, noncompliance Past Surgical History: No Surgical History Smoking: Cigarettes Alcohol Use: None Drug Use: None Adult General Chief Complaint Chief Complaint ".. I am out of my meds..and they did not give me Rx. for Xopenex breathing treatments..." HPI HPI Patient is a 58 year old female who presents with above hx and complaints of no breathing treatment meds. Patient declines labs. Patient declines further work up. Requesting only prescription to fill her albuterol-and/or Xopenex meds. Recent discharge from rehabilitation facility. Patient has chronic COPD oxygen dependent at 3 L. Patient no longer smokes. Patient not currently on steroids. No specific ill contacts. No recent travel. Review of Systems Review of Systems Constitutional: Denies fever or chills [] Eyes: Denies change in visual acuity, redness, or eye pain [] HENT: Denies nasal congestion or sore throat [] Respiratory: Hx of shortness of breath [] Cardiovascular: No additional information not addressed in HPI [] GI: Denies abdominal pain, nausea, vomiting, bloody stools or diarrhea [] : Denies dysuria or hematuria [] Musculoskeletal: Denies back pain or joint pain [] Integument: Denies rash or skin lesions [] Neurologic: Denies headache, focal weakness or sensory changes [] Endocrine: Denies polyuria or polydipsia [] All other systems were reviewed and found to be within normal limits, except as documented in this note. Family History Family History Noncontributory Current Medications Current Medications Current Medications Medications (Trade) Dose Ordered Sig/Flory Start Time Stop Time Status Last Admin Dose Admin Albuterol Sulfate (Starter Pack - Ventolin Nebs) 1 startpack 1X ONCE 05/28/18 23:45 05/28/18 23:45 DC 05/28/18 23:35 1 STARTPACK Albuterol/ Ipratropium (Duoneb) 3 ml STK-MED ONCE 05/28/18 22:07 05/28/18 22:08 DC Lactated Ringer's 1,000 ml @ 100 mls/hr Q10H 05/28/18 21:56 05/28/18 23:45 DC Allergies Allergies Allergies Coded Allergies Type Severity Reaction Last Updated Verified Sulfa (Sulfonamide Antibiotics) Allergy Intermediate 06/29/17 Yes cefaclor Allergy Intermediate 06/29/17 Yes ciprofloxacin Allergy Intermediate 06/29/17 Yes doxycycline Allergy Intermediate 06/29/17 Yes erythromycin base Allergy Intermediate 06/29/17 Yes iodine Allergy Intermediate 10/30/17 Yes lisinopril Allergy Intermediate 06/29/17 Yes metronidazole Allergy Intermediate 06/29/17 Yes tetracycline Allergy Intermediate 06/29/17 Yes Physical Exam Physical Exam Constitutional: no acute distress, non-toxic appearance. [] HENT: Normocephalic, atraumatic, bilateral external ears normal, oropharynx moist, no oral exudates, nose normal. [] Eyes: PERRLA, EOMI, conjunctiva normal, no discharge. [] Neck: Normal range of motion, no tenderness, supple, no stridor. [] Cardiovascular:Heart rate regular rhythm, no murmur [] Lungs & Thorax: Bilateral breath sounds equal apex with scattered wheezes on auscultation[] Abdomen: Bowel sounds normal, soft, no tenderness, no masses, no pulsatile masses. [] Skin: Warm, dry, no erythema, no rash. [] Back: No tenderness, no CVA tenderness. [] Extremities: No tenderness, no cyanosis, no clubbing, ROM intact, no edema. [] 3 changes Neurologic: Alert and oriented X 3, normal motor function, normal sensory function, no focal deficits noted. [] Psychologic: Affect normal, judgement normal, mood normal. [] Current Patient Data Vital Signs Vital Signs Date Time Temp Pulse Resp B/P (MAP) Pulse Ox O2 Delivery O2 Flow Rate FiO2 05/28/18 22:12 99 Nasal Cannula 4.0 05/28/18 22:00 98.1 101 26 EKG EKG My interpretation EKG shows a sinus rhythm at 89 bpm. Does have findings of LVH. Some nonspecific T-wave changes. But no findings acute STEMI of contralateral changes. Slightly prolonged QT interval at 390 ms and a QTC of 476 ms. Some baseline Artifact.[] Radiology/Procedures Radiology/Procedures My interpretation of chest x-ray shows chronic emphysema/COPD changes. No significant interval changes from past x-rays.[] Course & Med Decision Making Course & Med Decision Making Pertinent Labs and Imaging studies reviewed. (See chart for details) Pt. given a prescription for Xopenex and albuterol. She take meds as previous directed. Patient to follow-up primary care. Patient return if any concerns. Pt. declined any labs at this time. [] Final Impression Final Impression 1. COPD[] 2. Med refill Dragon Disclaimer Dragon Disclaimer This electronic medical record was generated, in whole or in part, using a voice recognition dictation system. Discharge Summary Visit Information Final Diagnosis Problems Medical Problems: (1) COPD (chronic obstructive pulmonary disease) with acute bronchitis Status: Acute Brief Hospital Course Allergies Allergies Coded Allergies Type Severity Reaction Last Updated Verified Sulfa (Sulfonamide Antibiotics) Allergy Intermediate 06/29/17 Yes cefaclor Allergy Intermediate 06/29/17 Yes ciprofloxacin Allergy Intermediate 06/29/17 Yes doxycycline Allergy Intermediate 06/29/17 Yes erythromycin base Allergy Intermediate 06/29/17 Yes iodine Allergy Intermediate 10/30/17 Yes lisinopril Allergy Intermediate 06/29/17 Yes metronidazole Allergy Intermediate 06/29/17 Yes tetracycline Allergy Intermediate 06/29/17 Yes Vital Signs Vital Signs Date Time Temp Pulse Resp B/P (MAP) Pulse Ox O2 Delivery O2 Flow Rate FiO2 05/28/18 22:12 99 Nasal Cannula 4.0 05/28/18 22:00 98.1 101 26 Brief Hospital Course Ms. Mark is a 58 old female who presented with hx COPD, requesting med refill. Discharge Information Condition at Discharge: Improved, Stable Disposition/Orders: D/C to Home Dischare Medications Current Medications Lactated Ringer's 1,000 ml @ 100 mls/hr Q10H IV ; Start 05/28/18 at 21:56; Stop 05/28/18 at 23:45; Status DC Albuterol/ Ipratropium (Duoneb) 3 ml STK-MED ONCE .ROUTE ; Start 05/28/18 at 22: 07; Stop 05/28/18 at 22:08; Status DC Albuterol Sulfate (Starter Pack - Ventolin Nebs) 1 startpack STK-MED ONCE .ROUTE ; Start 05/28/18 at 23:30; Stop 05/28/18 at 23:31; Status DC Albuterol Sulfate (Starter Pack - Ventolin Nebs) 1 startpack 1X ONCE INH Last administered on 05/28/18at 23:35; Admin Dose 1 STARTPACK; Start 05/28/18 at 23:45 ; Stop 05/28/18 at 23:45; Status DC Active Scripts Active Duoneb 0.5-3(2.5) Mg/3 Ml (Albuterol/Ipratropium) 3 Ml Ampul.neb 3 Ml NEB QID 90 Days Xopenex (Levalbuterol Hcl) 1.25 Mg/3 Ml Vial.neb 1.25 Mg IH QID Reported Pantoprazole Sodium 40 Mg Tablet.dr 40 Mg PO DAILY Amlodipine Besylate 2.5 Mg Tablet 2.5 Mg PO DAILY Xopenex (Levalbuterol Hcl) 1.25 Mg/3 Ml Vial.neb 1.25 Mg IH PRN QID PRN LAST DOSE GIVEN: DATE: TODAY TIME:AM NEXT DOSE DUE: DATE: TODAY TIME: AFTERNOON IF NEEDED Kathrine Disclaimer This chart was dictated in whole or in part using Voice Recognition software in a busy, high-work load, and often noisy Emergency Department environment. It may contain unintended and wholly unrecognized errors or omissions. ARGENTINA OSBORNE MD May 28, 2018 21:55
[2018-05-28] MEDS ORDERED: IV RINGERS SOLUTION,LACTATED 1,000 ML IV SCH (21:56)
[2018-05-28] MEDS ORDERED: IPRATRPIUM/ALBUTEROL 0.5/2.5MG 3 ML NEBU. ONE (22:07)
[2018-05-28] MEDS ORDERED: IPRA3AMP29 NEB (22:19)
[2018-05-28] MEDS ORDERED: XOPENEX1.25 MG/3 IH (22:19)
[2018-05-28] MEDS ORDERED: ALBUTEROL 3ML X5 NEB STARTPACK. ONE (23:30)
[2018-05-28 23:40] VITALS: BP 138/92
[2018-05-28] MEDS ORDERED: ALBUTEROL 3ML X5 NEB STARTPACK. INH ONE (23:45)
--- NOTE | 2018-05-29 00:13 | EKG ---
[address] [address] Test Date: 2018-05-28 Test Time: 22:30:02 Pat Name: GARTH ROJAS Department: Room: Gender: [employer] Consultant: ALESSANDRA : 1960 Requested By: ARGENTINA OSBORNE Order Number: [id number] Reading MD: Andrew Barrow MD Measurements Intervals [place] Rate: 89 P: 68 [place]: 88 QRS: 53 QRSD: 104 T: 22 QT: 390 QTc: 476 Interpretive Statements SINUS RHYTHM CONSIDER LEFT VENTRICULAR HYPERTROPHY NON-SPECIFIC ST/T CHANGES PROLONGED QT Electronically Signed On 06-03-2018 14:46:49 CDT by Andrew Barrow MD
--- NOTE | 2018-05-29 08:54 | RAD ---
PORTABLE CHEST 1V Clinical History: Dyspnea, hx COPD Technique: AP view of the chest was obtained at 05/28/2018 11:22 PM. Comparison: February 01, 2018. Findings: The cardiomediastinal silhouette is normal. The pulmonary vasculature is normal. The lungs are hyperinflated. A few linear and reticular opacities of the lungs was seen previously and is likely chronic pulmonary fibrosis. Blunting of costophrenic angles was seen previously and is likely chronic. Impression: Stable appearance of the chest. Electronically signed by: Andrade Gaytan III, MD (05/29/2018 8:51 AM) [facility]
== END 2018-05-28 23:42 | disposition home or self-care (01) ==
LOC: ER 21:50
DX: J44.9 Chronic obstructive pulmonary disease, unspecified (principal); J20.9 Acute bronchitis, unspecified; Z76.0 Encounter for issue of repeat prescription; I11.0 Hypertensive heart disease with heart failure; I50.9 Heart failure, unspecified; E78.00 Pure hypercholesterolemia, unspecified; F17.210 Nicotine dependence, cigarettes, uncomplicated; Z88.2 Allergy status to sulfonamides; Z88.1 Allergy status to other antibiotic agents; Z88.8 Allergy status to other drugs, medicaments and biological substances
CPT/HCPCS: 71045; 93005; 94640; 99284-25

== ENCOUNTER 2018-06-09 17:04 | Emergency (ER) | payer MEDICARE, MEDICAID ==
[2018-06-09] MEDS ORDERED: ALBUTEROL SULFATE 2.5 MG/3 ML NEBU. CONT NEB ONE (17:30)
[2018-06-09] MEDS ORDERED: methylPREDNISolone SOD SUCC PF 125 MG/2 ML VIAL. IV ONE (17:30)
[2018-06-09] MEDS ORDERED: IPRATROPIUM BROMIDE 0.5 MG/2.5 ML NEBU. NEB ONE (17:30)
[2018-06-09 17:57] LABS: BASO # 0.1 x10^3/uL (0.0-0.2); BASO % 1 % (0-3); EOS # 0.2 x10^3/uL (0.0-0.7); EOS % 2 % (0-3); HEMATOCRIT 43.8 % (36.0-47.0); HEMOGLOBIN 14.4 g/dL (12.0-15.5); LYMPH # 1.6 x10^3/uL (1.0-4.8); LYMPH % 17 % (24-48); MEAN CORPUSCULAR HEMOGLOBIN 30 pg (25-35); MEAN CORPUSCULAR HGB CONC 33 g/dL (31-37); MEAN CORPUSCULAR VOLUME 90 fL (79-100); MONO # 0.7 x10^3/uL (0.0-1.1); MONO % 7 % (0-9); NEUT % 74 % (31-73); PLATELET COUNT 295 x10^3/uL (140-400); RED BLOOD COUNT 4.89 x10^6/uL (3.50-5.40); RED CELL DISTRIBUTION WIDTH 13.8 % (11.5-14.5); WHITE BLOOD COUNT 9.5 x10^3/uL (4.0-11.0)
[2018-06-09] MEDS ORDERED: methylPREDNISolone SOD SUCC PF 125 MG/2 ML VIAL. IM ONE (18:15)
--- NOTE | 2018-06-09 18:15 | PHYS DOC ---
Past History Past Medical History: COPD, High Cholesterol, Heart Disease, Hypertension, Lung Disease Additional Past Medical Histor: pulmonary hypertension, cor pulmonale, noncompliance Past Surgical History: No Surgical History Smoking: Cigarettes Alcohol Use: None Drug Use: None Adult General Chief Complaint Chief Complaint: SHORTNESS OF BREATH [facility] Patient is a 58-year-old female who presents with complaint of symptoms of allergic reaction associated with a new inhaler that she was started on about a month ago. She states that symptoms have been present for the duration of time since she started the medication and states that she stopped taking it yesterday. She denies any chest pain but does admit to shortness of breath but states that she always has shortness of breath due to COPD. She denies any fever. Patient states that she just wants to be tested for allergies today. She states that shortness of breath is worsened with exertion. She denies orthopnea. Review of Systems Review of Systems Constitutional: Denies fever or chills [] Respiratory: Complains of shortness of breath [] Cardiovascular: No additional information not addressed in HPI [] GI: Denies abdominal pain, nausea, vomiting or diarrhea [] Integument: Denies rash or skin lesions [] Neurologic: Denies headache, focal weakness or sensory changes [] All other systems were reviewed and found to be within normal limits, except as documented in this note. Current Medications Current Medications Current Medications Medications (Trade) Dose Ordered Sig/[facility] Start Time Stop Time Status Last Admin Dose Admin Albuterol Sulfate (Ventolin) 7.5 mg 1X ONCE 06/09/18 17:30 06/09/18 17:31 DC Ipratropium [place] (Atrovent) 0.5 mg 1X ONCE 06/09/18 17:30 06/09/18 17:31 DC Methylprednisolone Sodium Succinate (SOLU-Medrol 125MG VIAL) 125 mg 1X ONCE 06/09/18 18:15 06/09/18 18:16 Allergies Allergies Allergies Coded Allergies Type Severity Reaction Last Updated Verified Sulfa (Sulfonamide Antibiotics) Allergy Intermediate 06/29/17 Yes cefaclor Allergy Intermediate 06/29/17 Yes ciprofloxacin Allergy Intermediate 06/29/17 Yes doxycycline Allergy Intermediate 06/29/17 Yes erythromycin base Allergy Intermediate 06/29/17 Yes iodine Allergy Intermediate 10/30/17 Yes lisinopril Allergy Intermediate 06/29/17 Yes metronidazole Allergy Intermediate 06/29/17 Yes tetracycline Allergy Intermediate 06/29/17 Yes Physical Exam Physical Exam Constitutional: Well developed, well nourished, no acute distress, non-toxic appearance. [] HENT: Normocephalic, atraumatic, bilateral external ears normal, oropharynx moist, no oral exudates, nose normal. [] Eyes: PERRLA, EOMI, conjunctiva normal, no discharge. [] Neck: Normal range of motion, no tenderness, supple, no stridor. [] Cardiovascular: Regular rate and rhythm[] Lungs & Thorax: Diminished breath sounds are noted bilaterally with fine inspiratory and expiratory wheezes to auscultation [] Abdomen: Bowel sounds normal, soft, no tenderness. [] Skin: Warm, dry, no erythema, no rash. [] Extremities: No tenderness, no cyanosis, no clubbing, ROM intact, no pitting edema. [] Neurologic: Alert and oriented X 3, no focal deficits noted. [] Current Patient Data Vital Signs Vital Signs Date Time Temp Pulse Resp B/P (MAP) Pulse Ox O2 Delivery O2 Flow Rate FiO2 06/09/18 17:29 111 28 92 Nasal Cannula 4.0 Lab Results Laboratory Tests Test 06/09/18 17:45 White Blood Count 9.5 x10^3/uL (4.0-11.0) Red Blood Count 4.89 x10^6/uL (3.50-5.40) Hemoglobin 14.4 g/dL (12.0-15.5) Hematocrit 43.8 % (36.0-47.0) Mean Corpuscular Volume 90 fL (79-100) Mean Corpuscular Hemoglobin 30 pg (25-35) Mean Corpuscular Hemoglobin Concent 33 g/dL (31-37) Red Cell Distribution Width 13.8 % (11.5-14.5) Platelet Count 295 x10^3/uL (140-400) Neutrophils (%) (Auto) 74 % (31-73) H Lymphocytes (%) (Auto) 17 % (24-48) L Monocytes (%) (Auto) 7 % (0-9) Eosinophils (%) (Auto) 2 % (0-3) Basophils (%) (Auto) 1 % (0-3) Neutrophils # (Auto) 7.0 x10^3uL (1.8-7.7) Lymphocytes # (Auto) 1.6 x10^3/uL (1.0-4.8) Monocytes # (Auto) 0.7 x10^3/uL (0.0-1.1) Eosinophils # (Auto) 0.2 x10^3/uL (0.0-0.7) Basophils # (Auto) 0.1 x10^3/uL (0.0-0.2) EKG EKG [] Radiology/Procedures Radiology/Procedures [] Impressions: Chest x-ray demonstrates volume expansion consistent with COPD. Course & Med Decision Making Course & Med Decision Making Pertinent Labs and Imaging studies reviewed. (See chart for details) [] Dragon Disclaimer Dragon Disclaimer This electronic medical record was generated, in whole or in part, using a voice recognition dictation system. Departure Departure: Impression: Primary Impression: COPD (chronic obstructive pulmonary disease) Disposition: HOME, SELF-CARE Condition: STABLE Referrals: ZULEIKA RECINOS RN, GNP (PCP) Patient Instructions: Chronic Obstructive Pulmonary Disease Problem Qualifiers Primary Impression: COPD (chronic obstructive pulmonary disease) COPD type: unspecified COPD Qualified Codes: J44.9 - Chronic obstructive pulmonary disease, unspecified JENELLE GARCIA Jr. DO June 09, 2018 18:15
--- NOTE | 2018-06-09 18:18 | RAD ---
PORTABLE CHEST 1V History: Short of air. Comparison with 05/28/2018. The heart size is not enlarged. No evidence pneumothorax. Mild blunting of the costophrenic angles is stable, may be due to lung hyperexpansion. No large effusion. No consolidating infiltrate. There is hyperexpansion of both lungs compatible with Regional skeleton demonstrates some thinning and irregularity at a right posterior rib, may be due to prior surgery. IMPRESSION: Stable air trapping. No consolidating infiltrate. Electronically signed by: Yusef Malik MD (06/09/2018 6:16 PM) [facility]
[2018-06-09 18:22] LABS: CALCIUM 9.5 mg/dL (8.5-10.1); CREATININE 0.6 mg/dL (0.6-1.0); POTASSIUM 4.2 mmol/L (3.5-5.1); TOTAL BILIRUBIN 0.4 mg/dL (0.2-1.0); TOTAL PROTEIN 7.9 g/dL (6.4-8.2)
[2018-06-09 19:45] VITALS: BP 180/104
== END 2018-06-09 20:05 | disposition home or self-care (01) ==
LOC: ER 17:04
DX: J44.9 Chronic obstructive pulmonary disease, unspecified (principal); E78.00 Pure hypercholesterolemia, unspecified; I11.9 Hypertensive heart disease without heart failure; F17.210 Nicotine dependence, cigarettes, uncomplicated; Z88.2 Allergy status to sulfonamides; Z88.1 Allergy status to other antibiotic agents; Z88.8 Allergy status to other drugs, medicaments and biological substances
CPT/HCPCS: 36415; 71045; 80053; 83880; 85025; 96374; 99285; J2930

== ENCOUNTER 2018-07-26 01:16 | Emergency (ER) | payer MEDICAID, MEDICARE ==
[~2018-07-26] VITALS: Ht 157.5 cm; Wt 57.0 kg
[2018-07-26] MEDS ORDERED: IPRATRPIUM/ALBUTEROL 0.5/2.5MG 3 ML NEBU. ONE ×2 (01:20→06:08)
--- NOTE | 2018-07-26 01:33 | PHYS DOC ---
Past History Past Medical History: COPD, High Cholesterol, Heart Disease, Hypertension, Lung Disease Additional Past Medical Histor: pulmonary hypertension, cor pulmonale, noncompliance Past Surgical History: No Surgical History Smoking: Cigarettes Alcohol Use: None Drug Use: None Adult General Chief Complaint Chief Complaint: SOB HPI HPI 58-year-old female presents via EMS with respiratory distress. She was found at home on 8 L of oxygen saturation of 95%. Patient was tripoding and asking for help. She does not really tell me how long this has been going on. She denies states that she is feeling really short of breath and can't breathe. She has a history of significant COPD. She has been on BiPAP for. She states be allergic to albuterol. She only wants to be on Xopenex. I have seen this patient in the past and she knows that we do not have Xopenex available. She does not answer when I ask if she is had any change in her cough, sputum, or whether or not she has a fever. Review of Systems Review of Systems Constitutional: Denies fever or chills [] Eyes: Denies change in visual acuity, redness, or eye pain [] HENT: Denies nasal congestion or sore throat [] Respiratory: shortness of breath [] Cardiovascular: No additional information not addressed in HPI [] GI: Denies abdominal pain, nausea, vomiting, bloody stools or diarrhea [] : Denies dysuria or hematuria [] Musculoskeletal: Denies back pain or joint pain [] Integument: Denies rash or skin lesions [] Neurologic: Denies headache, focal weakness or sensory changes [] Endocrine: Denies polyuria or polydipsia [] All other systems were reviewed and found to be within normal limits, except as documented in this note. Current Medications Current Medications Current Medications Medications (Trade) Dose Ordered Sig/Flory Start Time Stop Time Status Last Admin Dose Admin Albuterol/ Ipratropium (Duoneb) 3 ml 1X ONCE 07/26/18 01:30 07/26/18 01:31 UNV Methylprednisolone Sodium Succinate (SOLU-Medrol 125MG VIAL) 125 mg 1X ONCE 07/26/18 01:30 07/26/18 01:31 UNV Allergies Allergies Allergies Coded Allergies Type Severity Reaction Last Updated Verified Sulfa (Sulfonamide Antibiotics) Allergy Intermediate 06/29/17 Yes cefaclor Allergy Intermediate 06/29/17 Yes ciprofloxacin Allergy Intermediate 06/29/17 Yes doxycycline Allergy Intermediate 06/29/17 Yes erythromycin base Allergy Intermediate 06/29/17 Yes iodine Allergy Intermediate 10/30/17 Yes lisinopril Allergy Intermediate 06/29/17 Yes metronidazole Allergy Intermediate 06/29/17 Yes tetracycline Allergy Intermediate 06/29/17 Yes Physical Exam Physical Exam Constitutional: Well developed, well nourished, moderate acute respiratory distress, non-toxic appearance. [] HENT: Normocephalic, atraumatic, bilateral external ears normal, oropharynx moist, no oral exudates, nose normal. [] Eyes: PERRLA, EOMI, conjunctiva normal, no discharge. [] Neck: Normal range of motion, no tenderness, supple, no stridor. [] Cardiovascular:Heart rate regular rhythm, no murmur [] Lungs & Thorax: Bilateral breath sounds diminished with bilateral diffuse expiratory wheezing.[] Abdomen: Bowel sounds normal, soft, no tenderness, no masses, no pulsatile masses. [] Skin: Warm, dry, no erythema, no rash. [] Back: No tenderness, no CVA tenderness. [] Extremities: No tenderness, no cyanosis, no clubbing, ROM intact, no edema. [] Neurologic: Alert and oriented X 3, normal motor function, normal sensory function, no focal deficits noted. [] Psychologic: Affect non-cooperative, judgement normal, mood anxious. [] EKG EKG Sinus tachycardia, rate 109, normal axis, no ST elevation or depression.[] Radiology/Procedures Radiology/Procedures [] Impressions: CHEST AP ONLY Clinical Indication: Severe shortness of air Comparison: AP chest 06/09/2018. Findings: Atherosclerotic and mildly tortuous thoracic aorta. Cardiac size is normal. Moderate emphysema. Minimal scarring in the right lung base. Lungs are clear. There is no pneumothorax. No pleural effusion is appreciated. No acute bone abnormality. Stable deformity right posterior rib. IMPRESSION: 1. No acute cardiopulmonary process. 2. COPD. Electronically signed by: Franki Alvarez MD (07/26/2018 2:38 AM) [facility] DICTATED AND SIGNED BY: FRANKI ALVAREZ MD DATE: 07/26/18 0238 CC: ALICIA ARAGON DO; ZULEIKA RECINOS RN, GNP ~ Course & Med Decision Making Course & Med Decision Making Pertinent Labs and Imaging studies reviewed. (See chart for details) On arrival, the patient was not very cooperative. She was very anxious. We had trouble accurately determining what her oxygen level was she would not keep a mask on her keep nasal cannula. When we did get her to the something in place, she appeared to have O2 sats in the mid upper 80s. A DuoNeb treatment was given. An ABG was performed and is pending. 125 mg of Solu-Medrol by a bee was given. The patient did state a willingness to use BiPAP, so it was ordered. After a short period of struggle, the patient began to have much improved breathing with sats in the upper 90s and she calmed slightly. She was also given 2 mg of Ativan which further decreased her anxiety allowing her to take more even and deep breaths. Her respiratory rate improved from 40 a minute to 20-22. Her initial ABG did show a pH of 7.14 with a CO2 of 129. Review of her record shows that she normally has pH of 7.3 with a PCO2 between 80 and 95. These are likely other admissions when she was in distress. She is markedly more acidotic today. We will continue the BiPAP and give her a 10 mg albuterol treatment. The patient will be admitted to the hospital. The patient's chest x-rays negative for acute findings. We will perform repeat ABG. The patient's other labs are as expected with an elevated CO2. Mildly elevated white count. The patient's repeat ABG showed an increased CO2 of 1:30 with a pH of 7.08. This did not appear to be accurate so a repeat was performed. This was run on 2 different machines and had similar results. Her PCO2 had increased to 155. The patient became less responsive to verbal commands and the decision was made to intubate the patient. Etomidate and succinylcholine were used for RSI. She was intubated at 4:47 AM. A propofol drip was then started for sedation. The patient's daughter arrived soon after intubation. We were having difficulty regulating the patient's blood pressure and sedation level with propofol. At around 5:30 AM the patient started to lower her heart beat and continued down to bradycardia in the 20s. We performed a pulse check and she did not have a pulse. CPR was started. The patient was given 1 mg of epinephrine. Within 1 minute the patient began to have an organized rhythm on the monitor. At pulse check we did have a very rapid pulse in the 170s. This appeared to be organized on the monitor. We continued to monitor her pulse. As the epinephrine began to wear off, her heart rate normalized in the 90s and she had a good pulse. We had discontinued the propofol. We switched to Versed for sedation. Starting with 2 mg bolus. A drip of 1 mg/h was started and will be titrated as needed. The patient continued to have changing blood pressure. Her maps dropped into the upper 50s. We started dopamine at 5 mcg/kg/m. We will adjust this as needed. I spoke with Dr. Johnson at [facility] and he has accepted [place] [facility] He advised we give 1 g of Rocephin. I signed the patient out to Dr. Joyner at 0630 pending transfer to [facility]. The patient's third ABG is pending 75 minutes of critical care time was spent on this patient exclusive of other billable procedures. [] Dragon Disclaimer Dragon Disclaimer This electronic medical record was generated, in whole or in part, using a voice recognition dictation system. Departure Departure: Impression: Primary Impression: COPD with acute exacerbation Additional Impressions: Acute on chronic respiratory failure with hypoxia and hypercapnia Anxiety disorder Disposition: 02 XFER SHT-TRM HOSP Condition: CRITICAL Referrals: ZULEIKA RECINOS RN, GNP (PCP) Problem Qualifiers Additional Impressions: ALICIA ARAGON DO Jul 26, 2018 01:33
[2018-07-26] MEDS ORDERED: methylPREDNISolone SOD SUCC PF 125 MG/2 ML VIAL. IV ONE (01:45)
[2018-07-26] MEDS ORDERED: IPRATRPIUM/ALBUTEROL 0.5/2.5MG 3 ML NEBU. NEB ONE (01:45)
[2018-07-26 01:52] LABS: BASO # 0.1 x10^3/uL (0.0-0.2); BASO % 1 % (0-3); EOS # 0.4 x10^3/uL (0.0-0.7); EOS % 3 % (0-3); HEMOGLOBIN 13.9 g/dL (12.0-15.5); LYMPH # 0.9 x10^3/uL (1.0-4.8); LYMPH % 7 % (24-48); MEAN CORPUSCULAR HEMOGLOBIN 29 pg (25-35); MEAN CORPUSCULAR HGB CONC 32 g/dL (31-37); MEAN CORPUSCULAR VOLUME 90 fL (79-100); MONO # 0.6 x10^3/uL (0.0-1.1); MONO % 4 % (0-9); NEUT # 12.2 x10^3uL (1.8-7.7); NEUT % 86 % (31-73); PLATELET COUNT 303 x10^3/uL (140-400); RED BLOOD COUNT 4.77 x10^6/uL (3.50-5.40); RED CELL DISTRIBUTION WIDTH 13.9 % (11.5-14.5); WHITE BLOOD COUNT 14.2 x10^3/uL (4.0-11.0)
[2018-07-26 01:54] LABS: BGAS PH 7.14 (7.35-7.45)
[2018-07-26] MEDS ORDERED: ALBUTEROL SULFATE 2.5 MG/3 ML NEBU. CONT NEB ONE (02:00)
[2018-07-26 02:09] LABS: ALBUMIN 3.8 g/dL (3.4-5.0); ALBUMIN/GLOBULIN RATIO 1.1 (1.0-1.7); CALCIUM 8.9 mg/dL (8.5-10.1); CREATININE 0.4 mg/dL (0.6-1.0); GFR 162.8; POTASSIUM 4.2 mmol/L (3.5-5.1); TOTAL BILIRUBIN 0.4 mg/dL (0.2-1.0); TOTAL PROTEIN 7.4 g/dL (6.4-8.2)
--- NOTE | 2018-07-26 02:41 | RAD ---
CHEST AP ONLY Clinical Indication: Severe shortness of air Comparison: AP chest 06/09/2018. Findings: Atherosclerotic and mildly tortuous thoracic aorta. Cardiac size is normal. Moderate emphysema. Minimal scarring in the right lung base. Lungs are clear. There is no pneumothorax. No pleural effusion is appreciated. No acute bone abnormality. Stable deformity right posterior rib. IMPRESSION: 1. No acute cardiopulmonary process. 2. COPD. Electronically signed by: Franki Alvarez MD (07/26/2018 2:38 AM) [facility]
[2018-07-26] MEDS ORDERED: SODIUM BICARB ADULT 8.4% 50 MEQ/50 ML DISP.SYRIN. IV ONE ×2 (04:15→04:45)
[2018-07-26] MEDS ORDERED: IV NORMAL SALINE 1,000ML 1,000 ML IV ONE ×2 (04:15→08:00)
[2018-07-26] MEDS ORDERED: SUCCINYLCHOLINE 200 MG/10 ML VIAL. ONE ×2 (04:29→07:00)
[2018-07-26] MEDS ORDERED: SUCCINYLCHOLINE 200 MG/10 ML VIAL. IV ONE (04:30)
[2018-07-26] MEDS ORDERED: PROPOFOL 10,000 MCG/ML (20ML) VIAL IV ONE (04:30)
[2018-07-26] MEDS ORDERED: ETOMIDATE 40 MG/20 ML VIAL. IV ONE ×2 (04:30→07:00)
[2018-07-26] MEDS ORDERED: SODIUM BICARBONATE 50 MEQ/50 ML VIAL. ONE (04:38)
[2018-07-26] MEDS ORDERED: PROPOFOL 100 ML IV ONE (04:40)
[2018-07-26] MEDS ORDERED: MIDAZOLAM HCL PF 5 MG/5 ML VIAL. ONE ×2 (05:49→07:00)
[2018-07-26] MEDS ORDERED: cefTRIAXone SODIUM 1 GM VIAL ONE (06:58)
[2018-07-26] MEDS ORDERED: IV NORMAL SALINE 50ML 50 ML ONE (06:58)
[2018-07-26] MEDS ORDERED: DOPamine 400MG/250ML PREMIX 400 MG/250 ML BAG IV ONE (07:00)
[2018-07-26] MEDS ORDERED: EPINEPHrine SYRINGE 1 MG/10 ML SYRINGE ONE (07:00)
[2018-07-26 07:18] LABS: BGAS PH 7.43 (7.35-7.45)
[2018-07-26 07:32] VITALS: BP 129/84
--- NOTE | 2018-07-26 07:40 | RAD ---
Portable chest, 07/26/2018, 4:36 AM: HISTORY: Intubation, check tube placements Comparison is made to a study from earlier the same day. The ET tube tip lies several centimeters above the lucy. An NG tube extends into the proximal aspect of the stomach. The heart size is normal. There is calcific plaquing of the aorta. There is minimal parenchymal scarring. No acute infiltrate is seen. There is unchanged blunting of the right lateral costophrenic angle, probably due to scarring. No large pleural effusion is evident. IMPRESSION: 1. The ET tube and NG tube are in satisfactory positions. 2. No acute cardiopulmonary abnormality is detected. Electronically signed by: Hi Do MD (07/26/2018 7:37 AM) [facility]
[2018-07-26] MEDS ORDERED: NOREPINEPHRINE BITARTRATE 4 MG/4 ML VIAL. IV ONE (08:12)
[2018-07-26] MEDS ORDERED: NOREPINEPHRINE BITARTRATE 8 MG in IV NORMAL SALINE 250ML 250 ML IV PRN (08:30)
--- NOTE | 2018-07-26 16:23 | EKG ---
[address] [address] Test Date: 2018-07-26 Test Time: 01:53:41 Pat Name: GARTH ROJAS Department: Room: Gender: F Room Service Associate: : 1960 Requested By: ALICIA ARAGON Order Number: [id number] Reading MD: Elmer Queen Measurements Intervals [place] Rate: 109 P: 90 MI: 106 QRS: 57 QRSD: 82 T: 70 QT: 336 QTc: 454 Interpretive Statements SINUS TACHYCARDIA Electronically Signed On 08-16-2018 10:45:45 CDT by Elmer Queen
--- NOTE | 2018-07-26 16:24 | EKG ---
[address] [address] Test Date: 2018-07-26 Test Time: 07:01:56 Pat Name: GARTH ROJAS Department: Room: Gender: F Data Conversion Developer: : 1960 Requested By: ALICIA ARAGON Order Number: [id number] Reading MD: Elmer Queen Measurements Intervals [place] Rate: 98 P: -25 AL: 62 QRS: -18 QRSD: 74 T: 96 QT: 394 QTc: 505 Interpretive Statements SINUS RHYTHM SHORT AL INTERVAL PROBABLY WPW SYNDROME LEFTWARD AXIS CONSIDER LEFT VENTRICULAR HYPERTROPHY PROLONGED QT ABNORMAL ECG Electronically Signed On 08-16-2018 10:48:13 CDT by Elmer Queen
== END 2018-07-26 08:38 | disposition short-term general hospital (02) ==
LOC: ER 01:16
DX: J96.21 Acute and chronic respiratory failure with hypoxia (principal); Z99.81 Dependence on supplemental oxygen; J96.22 Acute and chronic respiratory failure with hypercapnia; J44.1 Chronic obstructive pulmonary disease with (acute) exacerbation; F41.9 Anxiety disorder, unspecified; E78.00 Pure hypercholesterolemia, unspecified; I11.0 Hypertensive heart disease with heart failure; F17.210 Nicotine dependence, cigarettes, uncomplicated
CPT/HCPCS: 31500; 36415; 36600; 43762; 71045; 80053; 82803; 84484; 85025; 92950; 93005; 94640; 94644; 94660; 96361; 96365; 96375; 96376; 99291; 99292; J0171; J0330; J0696; J1265; J2060; J2250; J2704; J2930; J7613; J7620; 94002; J7030

== ENCOUNTER 2018-11-12 12:05 | Emergency (ER) | payer MEDICARE ==
[~2018-11-12] VITALS: Ht 157.5 cm; Wt 57.0 kg
[2018-11-12] MEDS ORDERED: methylPREDNISolone SOD SUCC PF 125 MG/2 ML VIAL. IV ONE (12:15)
[2018-11-12] MEDS ORDERED: IPRATRPIUM/ALBUTEROL 0.5/2.5MG 3 ML NEBU. NEB ONE (12:15)
--- NOTE | 2018-11-12 12:16 | PHYS DOC ---
Past History Past Medical History: COPD, High Cholesterol, Heart Disease, Hypertension, Lung Disease Additional Past Medical Histor: pulmonary hypertension, cor pulmonale, noncompliance Past Surgical History: No Surgical History Smoking: Cigarettes Alcohol Use: None Drug Use: None Adult General Chief Complaint Chief Complaint: SHORTNESS OF BREATH HPI HPI Patient is a 58-year-old female presents with shortness of breath. She has a long-standing history of COPD, was just released from [facility] yesterday. She reports that her home BIPAP machine was not working. She was brought in by EMS and placed on CPAP. She was satting at 86% with her usual home 4 L nasal cannula that she was inhaling through her mouth. This improved to 99% with CPAP. Denies any fevers.[] Review of Systems Review of Systems Constitutional: Denies fever or chills [] Eyes: Denies change in visual acuity, redness, or eye pain [] HENT: Denies nasal congestion or sore throat [] Respiratory: See history of present illness[] Cardiovascular: No chest pain or palpitations[] GI: Denies abdominal pain, nausea, vomiting, bloody stools or diarrhea [] : Denies dysuria or hematuria [] Musculoskeletal: Denies back pain or joint pain [] Integument: Denies rash or skin lesions [] Neurologic: Denies headache, focal weakness or sensory changes [] Endocrine: Denies polyuria or polydipsia [] All other systems were reviewed and found to be within normal limits, except as documented in this note. Allergies Allergies Allergies Coded Allergies Type Severity Reaction Last Updated Verified Sulfa (Sulfonamide Antibiotics) Allergy Intermediate 06/29/17 Yes cefaclor Allergy Intermediate 06/29/17 Yes ciprofloxacin Allergy Intermediate 06/29/17 Yes doxycycline Allergy Intermediate 06/29/17 Yes erythromycin base Allergy Intermediate 06/29/17 Yes iodine Allergy Intermediate 10/30/17 Yes lisinopril Allergy Intermediate 06/29/17 Yes metronidazole Allergy Intermediate 06/29/17 Yes tetracycline Allergy Intermediate 06/29/17 Yes Physical Exam Physical Exam Constitutional: Well developed, well nourished, moderate acute respiratory distress, non-toxic appearance. [] HENT: Normocephalic, atraumatic, bilateral external ears normal, oropharynx moist, no oral exudates, nose normal. [] Eyes: PERRLA, EOMI, conjunctiva normal, no discharge. [] Neck: Normal range of motion, no tenderness, supple, no stridor. [] Cardiovascular:Heart rate regular rhythm, no murmur [] Lungs & Thorax: Increased work of breathing, decreased breath sounds with expiratory wheezes[] Abdomen: Bowel sounds normal, soft, no tenderness, no masses, no pulsatile masses. [] Skin: Warm, dry, no erythema, no rash. [] Back: No tenderness, no CVA tenderness. [] Extremities: No tenderness, no cyanosis, no clubbing, ROM intact, no edema. [] Neurologic: Alert and oriented X 3, normal motor function, normal sensory function, no focal deficits noted. [] Psychologic: Affect normal, judgement normal, mood normal. [] EKG EKG EKG shows a sinus rhythm at 98 bpm, normal axis, QTC 426 ms, no ST elevations. Interpreted by me at 1223[] Radiology/Procedures Radiology/Procedures PROCEDURE: PORTABLE CHEST 1V Indication:Severe dyspnea. TECHNIQUE:Portable AP chest X-ray COMPARISON: 07/26/2018 FINDINGS: Heart is normal in size. Lungs are hyperinflated. Mild interstitial opacities bilaterally without focal consolidation. No pneumothorax or pleural effusion. Visualized bony thorax within normal limits. IMPRESSION: COPD changes. Superimposed atypical/viral infection not ruled out.[] Course & Med Decision Making Course & Med Decision Making Pertinent Labs and Imaging studies reviewed. (See chart for details) ED course: Patient arrived, was placed in bed, and tolerated exam. BiPAP was placed, she was given DuoNeb with the BiPAP. It was noted that her PCO2 worsened between the first and second blood gases so settings on the BiPAP were changed. She was given steroids. She was also given of longer course of bronchodilator. Discussion with patient's family, they request that she be transported to [facility] instead of [facility]. Patient not a good candidate to remain at [facility] given her previous history of intubation along with the high CO2 level.. Consultation was made with Dr. Gordon graciously accepted the patient in transfer. Patient was transferred in improving condition. Medical decision making: Patient with long-standing COPD history who is hypercarbic. She is maintaining an airway and her PCO2 seems to be improving wit h changing settings on her BiPAP. She is being transferred to a higher level of care, specifically higher level of ICU and pulmonary medicine services. There is no evidence of an acute coronary syndrome. No evidence of pneumonia or pneumothorax.[] Dragon Disclaimer Dragon Disclaimer This electronic medical record was generated, in whole or in part, using a voice recognition dictation system. Departure Departure: Disposition: 01 HOME/RESIDENCE PRIOR TO ADM Condition: STABLE Referrals: ZULEIKA RECINOS RN, GNP (PCP) JIMMY MURRY DO Nov 12, 2018 12:16
[2018-11-12 12:40] LABS: BASO # 0.1 x10^3/uL (0.0-0.2); BASO % 1 % (0-3); EOS # 0.1 x10^3/uL (0.0-0.7); EOS % 1 % (0-3); HEMATOCRIT 34.4 % (36.0-47.0); HEMOGLOBIN 11.2 g/dL (12.0-15.5); LYMPH # 0.9 x10^3/uL (1.0-4.8); LYMPH % 10 % (24-48); MEAN CORPUSCULAR HEMOGLOBIN 30 pg (25-35); MEAN CORPUSCULAR HGB CONC 33 g/dL (31-37); MEAN CORPUSCULAR VOLUME 91 fL (79-100); MONO # 0.7 x10^3/uL (0.0-1.1); MONO % 8 % (0-9); NEUT # 7.3 x10^3uL (1.8-7.7); NEUT % 81 % (31-73); PLATELET COUNT 331 x10^3/uL (140-400); RED BLOOD COUNT 3.78 x10^6/uL (3.50-5.40); RED CELL DISTRIBUTION WIDTH 14.1 % (11.5-14.5)
--- NOTE | 2018-11-12 12:48 | RAD ---
Indication:Severe dyspnea. TECHNIQUE:Portable AP chest X-ray COMPARISON: 07/26/2018 FINDINGS: Heart is normal in size. Lungs are hyperinflated. Mild interstitial opacities bilaterally without focal consolidation. No pneumothorax or pleural effusion. Visualized bony thorax within normal limits. IMPRESSION: COPD changes. Superimposed atypical/viral infection not ruled out. Electronically signed by: Kayode Lozano DO (11/12/2018 12:45 PM) [facility]
[2018-11-12 12:50] LABS: BGAS PH 7.28 (7.35-7.45)
[2018-11-12 12:59] LABS: ALBUMIN 3.4 g/dL (3.4-5.0); ALBUMIN/GLOBULIN RATIO 0.9 (1.0-1.7); CREATININE 0.3 mg/dL (0.6-1.0); GFR 226.9; TOTAL BILIRUBIN 0.2 mg/dL (0.2-1.0); TOTAL PROTEIN 7.2 g/dL (6.4-8.2)
[2018-11-12] MEDS ORDERED: ALBUTEROL SULFATE 2.5 MG/3 ML NEBU. CONT NEB ONE (13:30)
[2018-11-12 13:40] LABS: BGAS PH 7.24 (7.35-7.45)
--- NOTE | 2018-11-12 13:42 | EKG ---
[address] [address] Test Date: 2018-11-12 Test Time: 12:21:16 Pat Name: GARTH ROJAS Department: Room: Gender: F Order Entry Representative: : 1960 Requested By: JIMMY MURRY Order Number: [id number] Reading MD: Andrew Barrow MD Measurements Intervals [place] Rate: 98 P: 90 [place]: 122 QRS: 59 QRSD: 78 T: 67 QT: 332 QTc: 426 Interpretive Statements SINUS RHYTHM Electronically Signed On 11-22-2018 9:45:47 CDT by Andrew Barrow MD
[2018-11-12 14:08] VITALS: BP 127/84
== END 2018-11-12 14:55 | disposition short-term general hospital (02) ==
LOC: ER 12:05
DX: R06.02 Shortness of breath (principal); J44.9 Chronic obstructive pulmonary disease, unspecified; E78.00 Pure hypercholesterolemia, unspecified; I11.9 Hypertensive heart disease without heart failure; F17.210 Nicotine dependence, cigarettes, uncomplicated; Z88.2 Allergy status to sulfonamides; Z88.1 Allergy status to other antibiotic agents; Z88.8 Allergy status to other drugs, medicaments and biological substances
CPT/HCPCS: 36415; 36600; 71045; 80053; 82375; 82803; 83880; 84484; 85025; 93005; 94640; 94660; 96374; 99285; J2930; J7620